=== PATIENT | female | born 1940 | race African-American/Black ===

== ENCOUNTER → 2023-06-25 15:29 | Outpatient (REF) | payer OTHER, SELFPAY ==
[2023-06-27 15:57] LABS: Varicella Zoster IgG (VZV) Positive
== END ==
LOC: REG 15:29
PROVIDERS: ATTENDING PHYSICIAN Internal Medicine
DX: Z20.820 Contact with and (suspected) exposure to varicella (principal)
CPT/HCPCS: 36415; 86787

== ENCOUNTER 2023-10-22 05:39 | Inpatient (IN) | payer OTHER, SELFPAY ==
[2023-10-22] VITALS (11 sets, daily range): BP systolic 114–187; BP diastolic 72–97; BMI 27.0
--- NOTE | 2023-10-22 03:20 | ED.MUSCINJ ---
HPI-Injury
<Daniela Win DO, Resident - Last Filed: 10/22/23 05:35>
General
Chief Complaint: Fall
Source: patient
Time Seen by Provider: 10/22/23 03:11
History of Present Illness-Injury
Is this injury a work related problem?: No
Is pt an associate of [facility]/[place]?: No
Initial Injury comments:
Patient is an 83-year-old female presenting to the ED after a fall. She was in her bathroom putting on lotion wearing her stool rolled out from underneath her. She was unable to catch her balance and fell. She was down for 2 hours as her
tried to assist her to get up. At 1 point they decided to just call EMS instead. She states her pain is a 10 out of 10 and does not like her right hip to be touched or maneuvered. She states that she cannot stop shaking and the pain is not going
down despite EMS giving fentanyl on the way here.
Past History
<Daniela Win DO, Resident - Last Filed: 10/22/23 05:35>
Past History
ED Past Medical History: HTN and Hypercholesterolemia; Negative CAD or NIDDM
ED Past Surgical History: Orthopedic (cerv fusion) and Other (Probable umbilical hernia as a child); Negative Cardiac
Social History
Tobacco: Non-smoker
Alcohol: None
Drug: None
Personal:
Living: with family
Employment: Retired
Family History
Family History: Other (Noncontributory)
Review of Systems
<Daniela Win DO, Resident - Last Filed: 10/22/23 05:35>
Review of Systems
Constitutional: Reports no symptoms
EENT: Reports no symptoms
Respiratory: Reports no symptoms
Cardiac: Reports no symptoms
ABD/GI: Reports no symptoms
: Reports no symptoms
Musculoskeletal: Reports joint pain, muscle pain and other (right hip pain secondary to fall)
Skin: Reports no symptoms
Neurological: Reports no symptoms
Musculoskeletal Injury Exam
<Daniela Win DO, Resident - Last Filed: 10/22/23 05:35>
Musculoskeletal Injury Exam
Right Hip:
Pain with Movement?: Severe
Tender to palpation?: Severe
Phy Exam
<Daniela Win DO, Resident - Last Filed: 10/22/23 05:35>
General Physical Exam
General Presentation: well appearing and no apparent distress
General age: appears stated age
General Skin: warm and dry
General Habitus: normal
General Mental: alert
Cardiovascular Exam
Cardiovascular Exam: regular rate/rhythm, no edema, no gallop, no JVD and no murmur
Pulmonary Exam
Pulmonary Exam: lungs clear, no respiratory distress, no rales, chest non tender, no crackles, no rhonchi, no stridor, no wheezing and no cough
Neurological Exam
Neurological Exam: alert and oriented x3
Musculoskeletal Exam
Musculoskeletal Exam: other (decreased ROM at right hip)
Injury Course
<Daniela Win DO, Resident - Last Filed: 10/22/23 05:35>
Orders/Labs/Results
Orders:
Orders
10/22/23 03:12
CR Hip - RT w/wo Pel 2-3 Vw* Urgent
Comment:
Reason For Exam: fall
Include a pelvis x-ray?: Yes
10/22/23 03:13
CR Femur - Right Min 2 Vw Urgent
Comment:
Reason For Exam: fall
10/22/23 03:15
HYDROmorphone [Dilaudid] 0.5 mg IV NOW STA
10/22/23 03:58
CT Head W/o Iv Contrast Urgent
Comment:
Reason For Exam: fall, blood thinners
10/22/23 04:08
Electrocardiogram (*1) Urgent
Reason for Study: PreOp
EKG- Treatment ONCE
10/22/23 04:09
Prothrombin Time Urgent
10/22/23 04:17
Complete Blood Count/With Diff Urgent
Comprehensive Metabolic Panel Urgent
10/22/23 04:20
Type+Screen Urgent
10/22/23 04:44
HYDROmorphone [Dilaudid] 0.5 mg IV NOW STA
10/22/23 Breakfast
NPO
Allow oral meds: No
Allow clear liquids: Sips of Clears
NPO with Ice Chips: Yes
Abnormal Lab Results
10/22/23
04:17
Glucose 112 H mg/dl
(70-99)
10/22/23 04:17
<Dejan Olguin, DO - Last Filed: 10/22/23 04:13>
Orders/Labs/Results
Orders:
Orders
10/22/23 03:12
CR Hip - RT w/wo Pel 2-3 Vw* Urgent
Comment:
Reason For Exam: fall
Include a pelvis x-ray?: Yes
10/22/23 03:13
CR Femur - Right Min 2 Vw Urgent
Comment:
Reason For Exam: fall
10/22/23 03:15
HYDROmorphone [Dilaudid] 0.5 mg IV NOW STA
10/22/23 03:58
CT Head W/o Iv Contrast Urgent
Comment:
Reason For Exam: fall, blood thinners
10/22/23 04:08
Electrocardiogram (*1) Urgent
Reason for Study: PreOp
EKG- Treatment ONCE
10/22/23 04:09
Prothrombin Time Urgent
10/22/23 04:17
Complete Blood Count/With Diff Urgent
Comprehensive Metabolic Panel Urgent
10/22/23 04:20
Type+Screen Urgent
10/22/23 04:44
HYDROmorphone [Dilaudid] 0.5 mg IV NOW STA
10/22/23 Breakfast
NPO
Allow oral meds: No
Allow clear liquids: Sips of Clears
NPO with Ice Chips: Yes
Abnormal Lab Results
10/22/23
04:17
Glucose 112 H mg/dl
(70-99)
10/22/23 04:17
<Daniela Win DO, Resident - Last Filed: 10/22/23 05:35>
MDM/Problems Addressed
Differential Diagnosis Includes:
Hip dislocation, femur fracture, hip contusion, pelvis fracture, hip fracture
MDM/Problems Addressed:
Patient is an 83-year-old female presenting to the ED after a fall in her bathroom. 0.5 mg Dilaudid given for pain in ED 2x. X-ray of right hip with pelvis and femur Show a clean fracture of the right leg at the level of the lesser trochanter.
Surgery consulted
Chronic conditions affecting care:
N/A
Acute Exacerbation and/or Progression of Chronic Illness:
N/A
<Daniela Win DO, Resident - Last Filed: 10/22/23 05:35>
*EKG
Interpreted by ED Provider?: Yes
EKG Intrepretation Date: 10/22/23
Interpretation: normal
Comparison EKG: no comparison EKG present
Rate: normal
Rhythm: sinus
[place]: normal axis
Interval: normal interval
QRS Pattern: normal QRS
Ischemia: no ischemia
*Spectrographic Analyst Interpretation
Rate: Spectrographic Analyst- N/A
<Dejan Olguin DO - Last Filed: 10/22/23 04:13>
*Critical Care Note
Total Time (30-74mins, 75-104mins- exclusive of procedures): Not Applicable
ED Attending Note
<Daniela Win DO, Resident - Last Filed: 10/22/23 05:35>
-
Portions of this chart may have been created with voice recognition software.� Occasional wrong word or��sound alike� substitutions may have occurred due to the inherent limitations of voice recognition software.
<Dejan Olguin DO - Last Filed: 10/22/23 04:13>
ED Attending Note
Patient seen and examined by attending physician: Yes
I performed the substantive portion of visit, reviewed & personally made and approve the management plan that is documented in note by myself or NEHA.: Yes
ED Attending Note:
83-year-old female presents with right hip pain. Patient slipped while trying to place cream on her leg. She fell off the stool falling on her right hip. Denies head injury or loss of consciousness. Patient is on Eliquis after a fall. Patient
has no other injury. Denies head strike or loss of consciousness. Patient was seen in conjunction with the medical accounting clerk. I have reviewed and agree with her history and treatment plan. On my physical exam patient is awake alert and oriented x
3. at the bedside. Heart is regular rate and rhythm. Lungs are clear to auscultation bilaterally without wheezes rales or rhonchi. Tenderness to palpation in the right hip. The right hip is shortened and externally rotated consistent
with fracture. X-ray of the hip and pelvis shows a femoral neck fracture that is comminuted and displaced.
Spoke with Dr. Jarquin, orthopedic surgery who agreed to see patient on rounds. Medicine to see in medically cleared patient. Patient to be admitted to medicine service.
Discharge Plan
Departure
Patient Disposition: Admit
Date of Disposition: 10/22/23
Time of Disposition: 04:10
Admit to: Telemetry
Presentation/result/management discussed w/ accepting MD/DO: Hospitalist
Condition: Good
Discharge Problem:
Closed hip fracture
Prescriptions:
No Action
simvastatin 20 MG tablet
20 mg PO HS
gabapentin 300 MG capsule
600 mg PO TID
tramadol 50 MG tablet
50 mg PO Q6H PRN (Reason: moderate pain)
Patient Comments:
01/04/2023: last filled 12/31/22, 120 tabs for 30 days from [facility][id number]
Caltrate 600 plus D 1 EACH tablet,chewable
1 ea PO DAILY
multivitamin Tablet
1 tab PO DAILY
cyanocobalamin (vitamin B-12) [Vitamin B-12] 1,000 mcg Tablet
1,000 mcg PO DAILY
cholecalciferol (vitamin D3) [Vitamin D3] 50 mcg (2,000 unit) Tablet
50 mcg PO DAILY
Eliquis 5 mg Tablet
5 mg PO BID 30 Days Qty: 60 0RF
lidocaine 4 % Adhesive Patch,Medicated
1 patch topical DAILY Qty: 30 0RF
metoprolol succinate 100 mg Tablet Extended Release 24 Hr
100 mg PO DAILY Qty: 30 0RF
pantoprazole 40 mg Tablet,Delayed Release (Dr/Ec)
40 mg PO BID Qty: 60 1RF
lisinopril 5 mg Tablet
5 mg PO DAILY Qty: 30 0RF
Referrals:
Lucia Handley MD [Family Provider] -
Interventions
Interventions:
*Risk Screen - Suicide Last Done: 10/22/23 03:14
*General Assessment Last Done: 10/22/23 03:14
*Neglect/Abuse Screening Last Done: 10/22/23 03:14
*ED COVID-19 Vaccine History Last Done: 10/22/23 03:14
ED-Musculoskeletal Assessment Last Done: 10/22/23 03:25
ED- Neurological Assessment Last Done: 10/22/23 03:14
ED-Skin Assessment Last Done: 10/22/23 03:25
Discharge Date and Time
Print Language: ESTONIAN
[2023-10-22] MEDS: DILAUDID 0.5 MG IV ×10 (03:22→23:57)
--- NOTE | 2023-10-22 05:04 | HPS.HSE ---
Family Physician
-
Family Physician: Lucia Handley
Chief Complaint
-
Fall
History of Present Illness
The patient is an 83-year-old woman with PMH significant for PAF on Eliquis (last dose noon 10/20), HTN, CAD, GI bleed, duodenal ulcer, Schatzki ring, Small Hiatal Hernia, spinal stenosis who presented to the emergency department due to a mechanical
fall in her bathroom earlier today. She was down for 2 hours and her was trying to assist her up. They called EMS and she was brought to the emergency department and found to have a right hip fracture. She does take oral anticoagulation.
She is having significant pain in the right hip.
Medical History
Past Medical History
Past Medical History: Reports Arrhythmia (PAF on Eliquis), CAD, HTN, Hypercholesterolemia, Valvular Disease (moderate TR), Psychiatric (Depression) and Other (GI bleed, duodenal ulcer, Schatzki ring, Small Hiatal Hernia, spinal stenosis)
Past Surgical History: Reports Orthopedic (cervical fusion) and Other (Hemorrhoid surgery)
Social History
Tobacco: Non-smoker
Alcohol: None
Drug: None
Family History
Family History: Not pertinent
Allergies / Home Medications
Allergies reflects when Allergies were last updated in [facility]..
Home Medications with original date entered in [facility].
Allergy/Medication List:
Allergies
Allergy/AdvReac Type Severity Reaction Status Date / Time
duloxetine HCl Allergy Pharmacy Verified 04/17/23 15:11
[From [facility]] to Review
oxycodone Allergy dizzy Verified 04/17/23 15:11
Home Medications
gabapentin 300 mg capsule 600 mg PO TID Neurological Condition 01/01/14
simvastatin 20 mg tablet 20 mg PO HS High Cholesterol 01/01/14
tramadol 50 mg tablet 50 mg PO Q6H PRN moderate pain 05/25/14
calcium carbonate 600 mg-vitamin D3 20 mcg (800 unit) chewable tablet (Caltrate 600 plus D) 1 ea PO DAILY Supplement 01/11/15
cholecalciferol (vitamin D3) 50 mcg (2,000 unit) tablet (Vitamin D3) 50 mcg PO DAILY Supplement 01/04/23
cyanocobalamin (vitamin B-12) 1,000 mcg tablet (Vitamin B-12) 1,000 mcg PO DAILY Supplement 01/04/23
multivitamin 1 tab PO DAILY Supplement 01/04/23
apixaban 5 mg tablet (Eliquis) 5 mg PO BID 30 days #60 tabs 01/07/23
lidocaine 4 % topical patch 1 patch topical DAILY #30 ea 01/07/23
lisinopril 5 mg tablet 5 mg PO DAILY #30 tabs 01/07/23
metoprolol succinate 100 mg tablet,extended release 24 hr 100 mg PO DAILY #30 tabs 01/07/23
pantoprazole 40 mg tablet,delayed release 40 mg PO BID #60 tabs 01/07/23
Review of Systems
-
A 12 point ROS was completed and negative except as noted: Yes
Physical Exam
Vital Signs
Vital Signs
Temp Pulse Resp BP Pulse Ox
98.7 F 82 20 187/84 98
10/22/23 03:14 10/22/23 03:14 10/22/23 03:14 10/22/23 03:14 10/22/23 03:14
Physical Exam
General: Comfortable, Conversant and Other (distress from pain)
HEENT: NormoCephalic, Anicteric and Moist mucous membranes
Respiratory: Clear
Cardiac: S1/S2 and Regular Rhythm
GI: Soft, Non Tender and Non Distended
Musculoskeletal: No Clubbing, No Cyanosis, No Edema and Other (RLE shortened and internally rotated)
Skin: Warm and Dry
Neuro: AO x 3 and No Motor Deficits
Data Reviewed
-
Medical Tests (Nuc Med, Echo, EKG etc): Image Personally Visualized and interpreted and Report Reviewed by me (EKG Sinus rhythm)
Impression/Plan
-
IMPRESSION:
#Right comminuted femoral neck fracture, on Eliquis, last dose noon on 10/20 2/2 mechanical fall
-hold Eliquis
-Ortho consulted, plan will likely be surgery Saturday after Eliquis wash-out
-Pain management IV prn
-labs pending
-supportive care
-bowel regimen
#PAF on Eliquis
-hold Eliquis
-Tele monitoring, waiting on med rec to add beta liliana
#Essential HTN
-awaiting med rec, will have to add meds once med rec performed
# CAD
#GI bleed, duodenal ulcer, Schatzki ring, history of
#Small Hiatal Hernia, history of
#spinal stenosis
-on tramadol at home
DVT proph-PCSs
Full Code
[2023-10-22 05:31] LABS: ALT (SGPT) 13 U/L (0-35); AST (SGOT) 28 U/L (14-36); Albumin 4.3 g/dl (3.5-5.0); Alkaline Phosphatase 88 U/L (38-126); Blood Urea Nitrogen 14 mg/dl (7-17); Calcium 9.7 mg/dl (8.4-10.2); Carbon Dioxide 27 mmol/L (22-30); Chloride 102 mmol/L (98-107); Glucose 112 mg/dl (70-99); Potassium 4.2 mmol/L (3.5-5.1); Sodium 138 mmol/L (135-145); Total Bilirubin 0.8 mg/dl (0.2-1.3); eGFR > 60.00
[2023-10-22 05:36] LABS: % Basophils 0.2 % (0-2); % Eosinophils 0.1 % (0-6); % Immature Granulocytes 0.5 % (0-0.5); % Lymphocytes 6.4 % (20.5-51.1); % Monocytes 4.1 % (1.7-9.3); % Neutrophils 89.5 % (42.2-75.2); Absolute Immature Granulocytes 0.1 10^3/uL (0-0.05); Absolute Lymphocytes 0.8 10^3/uL (1.2-3.4); Absolute Monocytes 0.5 10^3/uL (0.1-0.6); Absolute Neutrophils 11.6 10^3/uL (1.4-6.5); Hematocrit 36.4 % (37.0-47.0); Hemoglobin 12.3 g/dL (12.0-16.0); Mean Corp Hgb Conc. 33.5 g/dL (33.0-37.0); Mean Corpuscular Hgb 30.8 pg (27.0-31.0); Mean Corpuscular Volume 91.9 fL (81.0-99.0); Mean Platelet Volume 10.3 fL (7.4-10.4); Nucleated Red Blood Cells % 0 %; Platelet Count 254 10^3/uL (130-400); Red Blood Cell Count 3.99 10^6/uL (4.20-5.40); Red Cell Dist. Width 11.8 % (11.5-14.5)
[2023-10-22 05:56] LABS: INR 1.24; PT 15.4 Sec (11.4-14.6)
[2023-10-22] MEDS: NSS 1000 IV ×2 (07:21→17:00)
--- NOTE | 2023-10-22 07:22 | PTCARENOTE ---
Patient arrived from ED, able to participate in admission, good historian just unaware of home medications. Pulls over with assist, with R hip pain especially with movement.
[2023-10-22] MEDS: TYLENOL 650 MG PO ×5 (07:23→23:58)
--- NOTE | 2023-10-22 07:36 | W.PN.UPDATE ---
Update Note
Progress Note Update
Patient seen and evaluated by orthopedic surgery this morning. Patient has a comminuted intertrochanteric and subtrochanteric fracture of the right proximal femur. Recommending gamma nail fixation tomorrow, 10/23/2023 under the direction of
Britton (to allow for Eliquis washout). Consent obtained and placed in patient's chart. Right hip marked as the correct surgical extremity. Preoperative Ancef, irrigation, and TXA on-call to the OR. Type and screen ordered. Patient to remain NPO
pMN 10/22/2023 for surgery 10/23/2023. Case posted with OR front end drupal developer. Orthopedic surgery will continue to follow along. Full consult H&P pending.
--- NOTE | 2023-10-22 08:04 | CON.ORTHO ---
Consultation
-
Date/Time Consultation Requested: 10/22/23 @ 6:51 AM
Date/Time Consultation Performed: 10/22/23 @ 7:30 AM
Requesting Provider: Yisel Love
Performing Provider: Washington Villatoro PA-C for Dr. Jeff Jarquin
Reason for Consultation: Right Hip Fracture
Consultation - Orthopedics
History
HPI: The patient is an 83-year-old female with a past medical history significant for PAF on Eliquis (last dose noon 10/20), HTN, CAD, GI bleed, duodenal ulcer, schatzki ring, small hiatal hernia, and spinal stenosis who presented to the Emergency
Department via EMS with right hip pain after sustaining a mechanical fall in her bathroom earlier today. X-rays were obtained in the ED and revealed a comminuted intertrochanteric and subtrochanteric fracture of the proximal femur. Currently, she
is resting in bed and does report moderate pain to the right hip/thigh. She has pain with any movement. Patient is on Eliquis 5 mg twice daily, last dose reported noon 10/20. She denies any other injuries. At baseline, patient ambulates with
assistance of a walker/cane. She lives at home with her . She receives home nursing care 3 times per week. Orthopedic surgery was consulted regarding management of her right hip fracture.
Past Medical History
Past Medical History: Reports Arrhythmia (PAF on Eliquis), CAD, HTN, Hypercholesterolemia, Valvular Disease (moderate TR), Psychiatric (Depression) and Other (GI bleed, duodenal ulcer, Schatzki ring, Small Hiatal Hernia, spinal stenosis)
Past Surgical History: Reports Orthopedic (cervical fusion) and Other (Hemorrhoid surgery)
Social History
Tobacco: Non-smoker
Alcohol: None
Drug: None
Family History
Family History: Not pertinent
Review of Systems: 12-point review of systems obtained and negative except those mentioned in the HPI.
Allergies / Home Medications
Allergy/AdvReac Type Severity Reaction Status Date / Time
duloxetine HCl Allergy Pharmacy Verified 04/17/23 15:11
[From [facility]] to Review
oxycodone Allergy dizzy Verified 04/17/23 15:11
�Medication �Instructions �Recorded
gabapentin 300 mg capsule 600 mg PO TID Neurological 01/01/14
Condition
simvastatin 20 mg tablet 20 mg PO HS High Cholesterol 01/01/14
tramadol 50 mg tablet 50 mg PO Q6H PRN moderate pain 05/25/14
calcium carbonate 600 mg-vitamin 1 ea PO DAILY Supplement 01/11/15
D3 20 mcg (800 unit) chewable
tablet (Caltrate 600 plus D)
cholecalciferol (vitamin D3) 50 50 mcg PO DAILY Supplement 01/04/23
mcg (2,000 unit) tablet (Vitamin
D3)
cyanocobalamin (vitamin B-12) 1,000 mcg PO DAILY Supplement 01/04/23
1,000 mcg tablet (Vitamin B-12)
multivitamin 1 tab PO DAILY Supplement 01/04/23
apixaban 5 mg tablet (Eliquis) 5 mg PO BID 30 days #60 tabs 01/07/23
lidocaine 4 % topical patch 1 patch topical DAILY pain 10/22/23
lisinopril 5 mg tablet 5 mg PO DAILY Blood Pressure 10/22/23
metoprolol succinate 100 mg 100 mg PO DAILY Blood Pressure 10/22/23
tablet,extended release 24 hr
pantoprazole 40 mg tablet,delayed 40 mg PO BID Gastrointestinal Issue 10/22/23
release
Vital Signs / Lab Results
Temp Pulse Resp BP Pulse Ox
99.2 F 91 21 173/97 95
10/22/23 07:11 10/22/23 07:11 10/22/23 07:11 10/22/23 07:11 10/22/23 07:11
10/22/23 04:17
10/22/23 04:17
Radiographic Findings:
CR Femur - RIGHT Min 2 Vw; CR Hip - RT w/wo Pel 2-3 Vw* was obtained at [facility] on 10/22/2023 and was made available for my review today. Findings: There is a comminuted intertrochanteric and subtrochanteric fracture of the proximal
right femur. Remaining osseous structures appear intact. Some degenerative changes about the both hips and within the included portion of the lower lumbar spine are noted. Impression: Comminuted intra inheritance subtrochanteric fracture of the
proximal femur.
Physical Exam:
General: well developed, well nourished female in no acute distress.
HEENT: NCAT, sclera anicteric, normal conversational hearing.
Heart: No JVD.
Lungs: Normal work of breathing on room air.
MSK: Focused examination of the right lower extremity reveals leg shortened and externally rotated. (+) [place]. (+) Tenderness to palpation of hip. ROM deferred due to known fracture. Able to plantarflex and dorsiflex the ankle. Wiggle all toes.
NVI distally.
Assessment / Plan
Assessment: 83-year-old female with a right comminuted intertrochanteric and subtrochanteric fracture of the proximal right femur.
Plan: Unfortunately, the patient has sustained a right proximal femur fracture following a mechanical fall earlier today. We discussed the treatment options. Recommended operative fixation. The risks, benefits, potential complications, and the
expected postoperative course were reviewed. She agrees to proceed with surgical intervention. Surgical and blood consents were obtained and placed into the patient's chart. We will plan for OR tomorrow, 10/23/2023 for right hip gamma nail under
the direction of Dr. Jarquin to allow for Eliquis washout. Patient to remain NPO pMN for surgery tomorrow. Patient to remain nonweightbearing to the right lower extremity until postop. Continue with pain management per primary team as needed.
Preoperative Ancef, irrigation, and TXA irrigation podiatric surgeon to OR. Type and screen completed. Case posted with the OR front desk officer. Right hip marked as the correct surgical extremity. Hemoglobin today 12.3. Orthopedic surgery will continue to
follow along.
--- NOTE | 2023-10-22 11:42 | CM ---
Reviewed the chart notes and spoke with the patient and her spouse at the bedside. The patient is scheduled for the OR tomorrow for hip fx repair. The patient resides with her spouse in a one story home with no steps to enter through garage
entrance. The patient uses a rolling walker with ambulation and has a shower chair. The patient has skilled nursing insurance and has an aide M-W-F for four hours to assist with ADLs. The patient's pharmacy of choice is the [facility].
CM continues to be available to patient/family and is monitoring medical plan for needs at discharge.
Plan: Discharge most probably to SNF/rehab. Precert will be required.
--- NOTE | 2023-10-22 12:48 | W.PN.UPDATE ---
Update Note
Progress Note Update
Pain control, plan to go to the OR tomorrow
N.p.o. at midnight
Leukocytosis most likely reactive secondary to fall/fracture. Monitor fever curve, white count.
[2023-10-22] MEDS: COLACE 100 MG PO (19:59)
[2023-10-22] MEDS: SENOKOT 17.2 MG PO (19:59)
[2023-10-23] VITALS (15 sets, daily range): BP systolic 93–175; BP diastolic 63–108
--- NOTE | 2023-10-23 03:35 | DOWNTIME ---
There was a [employer] Client Ultrasound Sonographer Downtime on 10/23/2023 from 0100 to 10/23/2023 at 0255. Downtime documentation of patient's care, including medication administrations, has been reconciled in the electronic record per guidelines. Refer to the
patient's paper chart under the miscellaneous tab to see printed paper medication records and downtime forms.
[2023-10-23] MEDS: TYLENOL 650 MG PO ×4 (03:47→19:48)
[2023-10-23] MEDS: DILAUDID 0.5 MG IV ×5 (03:48→15:52)
--- NOTE | 2023-10-23 07:08 | W.PN.UPDATE ---
Update Note
Progress Note Update
Patient resting comfortably in bed. She does endorse some discomfort to the right hip. Plan is for right hip gamma nail later today under the direction of Dr. Jarquin. Surgical and blood consents have been obtained and placed on patient's chart. All
of her questions were answered. Remain NPO. Will continue to follow along.
[2023-10-23 07:10] LABS: Hematocrit 31.8 % (37.0-47.0); Hemoglobin 10.7 g/dL (12.0-16.0); Mean Corp Hgb Conc. 33.6 g/dL (33.0-37.0); Mean Corpuscular Hgb 30.5 pg (27.0-31.0); Mean Corpuscular Volume 90.6 fL (81.0-99.0); Mean Platelet Volume 10.7 fL (7.4-10.4); Platelet Count 192 10^3/uL (130-400); Red Blood Cell Count 3.51 10^6/uL (4.20-5.40); Red Cell Dist. Width 11.9 % (11.5-14.5); White Blood Cell Count 7.9 10^3/uL (4.8-10.8)
[2023-10-23 07:14] LABS: Blood Urea Nitrogen 7 mg/dl (7-17); Calcium 8.8 mg/dl (8.4-10.2); Carbon Dioxide 25 mmol/L (22-30); Chloride 106 mmol/L (98-107); Estimated Creatinine Clearance 69 ml/min; Glucose 112 mg/dl (70-99); Sodium 137 mmol/L (135-145); eGFR > 60.00
[2023-10-23] MEDS: SENOKOT 17.2 MG PO ×2 (09:04→19:48)
[2023-10-23] MEDS: COLACE 100 MG PO ×2 (09:04→19:48)
--- NOTE | 2023-10-23 11:40 | W.PN.HOSP.TC ---
Today's Communication/Plan
-
Gamma Nail today
holding eliquis
Assessment / Plan
Assessment / Plan
Physical Exam
General: Comfortable, Conversant
HEENT: NormoCephalic, Anicteric and Moist mucous membranes
Respiratory: Clear
Cardiac: S1/S2 and Regular Rhythm
GI: Soft, Non Tender and Non Distended
Musculoskeletal: No Clubbing, No Cyanosis, No Edema and Other (RLE shortened and internally rotated)
Skin: Warm and Dry
Neuro: AO x 3 and No Motor Deficits
#Right comminuted femoral neck fracture, on Eliquis, last dose noon on 10/20 2/ mechanical fall
-hold Eliquis, await restarting once cleared by Ortho
-Ortho consulted, plan will likely be surgery Saturday after Eliquis wash-out; Right Hip gamma nail
-Pain management IV prn
-labs pending
-supportive care
-bowel regimen
#PAF on Eliquis
-hold Eliquis
-Tele monitoring, waiting on med rec to add beta liliana
#Essential HTN - BB, ACEI
# CAD - BB, ACEI
#GI bleed, duodenal ulcer, Schatzki ring, history of
#Small Hiatal Hernia, history of
#spinal stenosis
-on tramadol at home; dilaudid inpatient
DVT proph-SCDs
Full Code
Anticipated Discharge: 24 - 48 hours
Subjective/Interval History
-
Date of Service: October 23, 2023
no acute events
Objective Data
-
Labs:
Laboratory Results
10/23/23
06:05
WBC 7.9
Hgb 10.7 L
Hct 31.8 L
Plt Count 192 D
Sodium 137
Potassium 4.0
Chloride 106
Carbon Dioxide 25
BUN 7
Creatinine 0.6
Glucose 112 H
Calcium 8.8
Vital Signs:
Vital Signs
Temp Pulse Resp BP Pulse Ox
98.7 F 101 18 175/97 94
10/23/23 11:00 10/23/23 11:00 10/23/23 11:00 10/23/23 11:00 10/23/23 11:00
I&O
10/22/23 10/23/23 10/24/23
06:59 06:59 06:59
Intake Total 2840 / 2840
Output Total 1999
Balance 840 / 840
Review of Systems
-
History Source: Patient
All other systems: Reviewed and negative
Physical Exam
-
General: No Apparent Distress
HEENT: PERRLA
Respiratory: Clear to Auscultation; Negative Wheezes
Cardiac: S1/S2
GI: Soft and Nontender
Musculoskeletal: No Edema
Skin: Warm and Dry; Negative Rash
Neuro: AO x 3
Psych: Calm
Data Reviewed
-
Diagnostic Radiology: Report Reviewed by me
Labs: Labs Reviewed by me
[2023-10-23] MEDS: TOPROL XL 100 MG PO (12:05)
--- NOTE | 2023-10-23 12:30 | PTCARENOTE ---
Report given to LINUX SECURITY ADMINISTRATOR. Pts bp is 175/97. MD ordered PO metoprolol. OR okay'd this RN to give before OR. PO metorpolol and PRN Dilaudid given per order. CHG wipes completed. Patients son and at bedside.
--- NOTE | 2023-10-23 14:48 | CM ---
Reviewed the chart notes. Patient for OR today. Will need PT/OT evaluations for SNF/rehab placement. Precert will be required. CM continues to be available to patient/family and is monitoring medical plan for needs at discharge.
Plan: Discharge to SNF/rehab once medically stable and bed found. Precert will be required.
[2023-10-23] MEDS: NSS 1000 IV (16:27)
--- NOTE | 2023-10-23 16:52 | PTCARENOTE ---
Patient received from PACU in bed; Patient drowsy, awakes to voice and tactile stimulation; Patient disoriented to self, place, and time; Patient intermittently following commands; Right hip aquacell x3 with scant amount of drainage; Bilateral pedal
pulses +2; Patient able to wiggle toes; Patient with positive sensation to RLE; Bed in lowest position, wheels locked; Call espinoza within reach; Spouse and son at bedside; Assessment ongoing
[2023-10-23] MEDS: NEURONTIN 600 MG PO ×2 (17:29→21:08)
[2023-10-23] MEDS: TYLENOL PO (17:32)
[2023-10-23] MEDS: PROTONIX 40 MG PO (19:48)
[2023-10-23] MEDS: ANCEF 5 IV (20:35)
[2023-10-24] VITALS (7 sets, daily range): BP systolic 99–109; BP diastolic 52–68
[2023-10-24] MEDS: TYLENOL 650 MG PO ×5 (00:01→23:57)
[2023-10-24] MEDS: NSS 1000 IV ×2 (04:05→15:16)
[2023-10-24] MEDS: ANCEF 5 IV (04:11)
[2023-10-24 05:57] LABS: Hematocrit 26.8 % (37.0-47.0); Hemoglobin 8.9 g/dL (12.0-16.0); Mean Corp Hgb Conc. 33.2 g/dL (33.0-37.0); Mean Corpuscular Hgb 31.4 pg (27.0-31.0); Mean Corpuscular Volume 94.7 fL (81.0-99.0); Mean Platelet Volume 10.5 fL (7.4-10.4); Platelet Count 223 10^3/uL (130-400); Red Blood Cell Count 2.83 10^6/uL (4.20-5.40); Red Cell Dist. Width 11.9 % (11.5-14.5); White Blood Cell Count 12.6 10^3/uL (4.8-10.8)
[2023-10-24 06:21] LABS: Blood Urea Nitrogen 19 mg/dl (7-17); Calcium 8.6 mg/dl (8.4-10.2); Carbon Dioxide 22 mmol/L (22-30); Chloride 106 mmol/L (98-107); Estimated Creatinine Clearance 38 ml/min; Glucose 130 mg/dl (70-99); Potassium 4.5 mmol/L (3.5-5.1); Sodium 138 mmol/L (135-145); eGFR 49.86
--- NOTE | 2023-10-24 07:39 | W.PN.ORTHO ---
Today's Communication / Plan
-
Patient not arousable this morning but seems to be doing okay per nursing so suggest they contact hospitalist for evaluation
PT/OT
Weightbearing as tolerated with walker
Eliquis for DVT prophylactics
Moderate bloody drainage on dressing so nursing may change dressings this am
care home facility once medically stable
Skin clip removal 2 weeks postop
Return to office 4 weeks for x-ray
Assessment
.
Distal Motor Intact: Yes
Dressing:
Clean, dry and intact.
Plan
.
Surgery / Date: R hip Gamma Nail 10/22 Ritting
DVT Prophylaxis: Other (Eliquis)
Activity:
Out of bed.
PT/OT
Discharge Plan: SNF
Subjective
.
.:
Patient resting comfortably. Patient not arousable this morning. Spoke with her overnight nurse who said that she has been like that since she came back from PACU. Her vital signs seem to be improving and is not in significant pain. She has been
taking Tylenol only for pain. They are able to arouse her enough to take pills with applesauce. neurovascular appears intact.
Vital Signs and Labs
.
Vital Signs and Labs:
Lab Results
10/24/23 05:46
10/24/23 05:46
Temp Pulse Resp BP Pulse Ox
97.1 F 93 16 104/68 93
10/24/23 03:50 10/24/23 03:50 10/24/23 03:50 10/24/23 03:50 10/24/23 03:50
PT 15.4 Sec (11.4-14.6) H 10/22/23 04:09
INR 1.24 10/22/23 04:09
[2023-10-24] MEDS: LR 1000 IV (08:33)
[2023-10-24] MEDS: NEURONTIN 600 MG PO (08:36)
[2023-10-24] MEDS: SENOKOT 17.2 MG PO ×2 (08:38→19:51)
[2023-10-24] MEDS: COLACE 100 MG PO ×2 (08:38→19:51)
[2023-10-24] MEDS: PROTONIX 40 MG PO ×2 (08:38→19:51)
[2023-10-24] MEDS: ZESTRIL PO (08:46)
[2023-10-24] MEDS: TOPROL XL PO (08:46)
[2023-10-24] MEDS: ELIQUIS 5 MG PO ×2 (09:29→20:12)
[2023-10-24] MEDS: TYLENOL PO ×2 (11:18→15:31)
--- NOTE | 2023-10-24 11:28 | W.PN.HOSP.TC ---
Today's Communication/Plan
-
resumed Eliquis -monitor HgB
LR/IVF - monitor renal function
CT Head, UA, VBG
Avoid nephrotoxic agents, stop gabapentin, avoid narcotics if possible
Assessment / Plan
Assessment / Plan
Physical Exam
General: Comfortable, Conversant
HEENT: NormoCephalic, Anicteric and Moist mucous membranes
Respiratory: Clear
Cardiac: S1/S2 and Regular Rhythm
GI: Soft, Non Tender and Non Distended
Musculoskeletal: No Clubbing, No Cyanosis, No Edema and Other (RLE shortened and internally rotated)
Skin: Warm and Dry
Neuro: AO x 3 and No Motor Deficits
#Right comminuted femoral neck fracture, on Eliquis, last dose noon on 10/20 2/2 mechanical fall
-R hip Gamma Nail 10/22 Ritting
-Ortho started Eliquis - monitor with hgb drop
-Pain management IV prn
-supportive care
-bowel regimen
-Skin clip removal 2 weeks postop
-Return to office 4 weeks for x-ray
# Acute metabolic encephalopathy
� Postprocedure
� Avoid narcotics if possible
� CT head
� Venous blood gas
� UA/cultures
-stop gabapentin
#Acute Blood loss Anemia
-s/p gamma nail
-monitor while ortho placed back on eliquis
#HELENA
-most likley post op blood loss v hypotension v dehydration
-LR bolus now
-hold ACEI
#PAF on Eliquis
-back on Eliquis
-Tele monitoring, waiting on med rec to add beta liliana
-BB
#Essential HTN - BB, hold ACEI
# CAD - BB, hold ACEI
#GI bleed, duodenal ulcer, Schatzki ring, history of
#Small Hiatal Hernia, history of
#spinal stenosis
-on tramadol at home; dilaudid inpatient
DVT proph-Eliquis
Full Code
Total time spent on today's encounter was 50 minutes which included time spent in counseling the patient/family regarding diagnosis and treatment plan as listed above, goals of care, and symptom management. Case was discussed with nursing staff,
specialists, and care coordinators/case management. All labs and imaging personally reviewed by me. Remainder the time spent in detailed review of previous records, lab data, imaging, and other medical provider documentation.
Anticipated Discharge: 24 - 48 hours
Subjective/Interval History
-
Date of Service: October 24, 2023
patient lethargic this am, and apparently after procedure yesterday
Objective Data
-
Labs:
Laboratory Results
10/24/23
05:46
WBC 12.6 H
Hgb 8.9 L
Hct 26.8 L
Plt Count 223
Sodium 138
Potassium 4.5
Chloride 106
Carbon Dioxide 22
BUN 19 H
Creatinine 1.1 H
Glucose 130 H
Calcium 8.6
Vital Signs:
Vital Signs
Temp Pulse Resp BP Pulse Ox
97.9 F 101 16 108/52 97
10/24/23 11:13 10/24/23 11:13 10/24/23 11:13 10/24/23 11:13 10/24/23 11:13
I&O
10/23/23 10/24/23 10/25/23
06:59 06:59 06:59
Intake Total 2840 / 2840 1650 / 1650
Output Total 1999 / 1999 850 / 850
Balance 840 / 840 800 / 800
Review of Systems
-
History Source: Patient
All other systems: Not reviewed unless documented
Physical Exam
-
General: No Apparent Distress
HEENT: PERRLA
Respiratory: Clear to Auscultation; Negative Wheezes
Cardiac: S1/S2
GI: Soft and Nontender
Musculoskeletal: No Edema
Skin: Warm and Dry; Negative Rash
Neuro: AO x 3
Psych: Calm
Data Reviewed
-
Diagnostic Radiology: Report Reviewed by me
Labs: Labs Reviewed by me
--- NOTE | 2023-10-24 11:40 | CM ---
Addendum entered by Yecenia Nogueira 10/24/23 13:56:
Patient left his cell phone at home. Met with in room. Patient more alert at this time. Patient confirmed that he wanted patient to go to SNF prior to coming home. CM sent referral to [facility], via all scripts, following
discussion with and review of PAC data about options. Patient stated they lived [place] the [address] from [facility]. Await response from SNF.
Addendum entered by Yecenia Nogueira 10/24/23 12:00:
CM called and left voice mail requesting call back to discuss options for next steps.
Original Note:
Patient seen at bedside. Patient sleeping, CM will call to patient family to review options for next steps. Pending PT/OT assessment for recommendations. CM will continue to follow for discharge planning needs.
Plan; SNF pending functional assessments
[2023-10-24 12:15] LABS: Venous Blood Gas B.E. -2.2 mmol/L (-4 to +4); Venous Blood Gas HCO3 23.7 mmol/L (22-27); Venous Blood Gas pCO2 45 mmHg (35-48); Venous Blood Gas pH 7.33 (7.32-7.43); Venous Blood Gas pO2 182 mmHg (30-50)
[2023-10-24 13:39] LABS: Urine Albumin Negative (Neg - Trace); Urine Bilirubin Negative (Negative); Urine Character Slightly Cloudy (Clear); Urine Color Yellow; Urine Glucose Negative (Negative); Urine Ketone 1+ (Negative); Urine Leukocyte 1+ (Negative); Urine Nitrite Negative (Negative); Urine Occult Blood Trace (Negative); Urine Urobilinogen Negative (Neg - 1+)
[2023-10-24 15:14] LABS: Urine Squamous Cell >30 /LPF (Few)
[2023-10-24 15:17] LABS: Urine Bacteria Moderate (Negative); Urine Red Blood Cell 16-20 /HPF (0-2)
[2023-10-24] MEDS: TOPROL XL 100 MG PO (20:11)
[2023-10-24 21:09] LABS: Urine Albumin Negative (Neg - Trace); Urine Bilirubin Negative (Negative); Urine Character Clear (Clear); Urine Color Yellow; Urine Glucose Negative (Negative); Urine Ketone 1+ (Negative); Urine Leukocyte Trace (Negative); Urine Nitrite Negative (Negative); Urine Occult Blood Negative (Negative); Urine Specific Gravity 1.015 (<1.030); Urine Urobilinogen Negative (Neg - 1+)
[2023-10-24 21:27] LABS: Urine Red Blood Cell 0-2 /HPF (0-2); Urine White Cell 0-2 /HPF (0-5)
[2023-10-24] MEDS: DILAUDID 0.5 MG IV (21:55)
[2023-10-25] VITALS (11 sets, daily range): BP systolic 107–146; BP diastolic 59–72; PULSE 79–90; O2SAT 99
[2023-10-25] MEDS: TYLENOL 650 MG PO ×5 (03:30→21:47)
[2023-10-25] MEDS: FLOMAX 0.4 MG PO (03:30)
[2023-10-25] MEDS: NSS 1000 IV ×2 (04:41→18:14)
[2023-10-25 07:06] LABS: Blood Urea Nitrogen 24 mg/dl (7-17); Calcium 8.2 mg/dl (8.4-10.2); Carbon Dioxide 24 mmol/L (22-30); Chloride 109 mmol/L (98-107); Estimated Creatinine Clearance 41 ml/min; Glucose 94 mg/dl (70-99); Magnesium 1.9 mg/dl (1.6-2.3); Potassium 4.3 mmol/L (3.5-5.1); Sodium 139 mmol/L (135-145)
[2023-10-25 07:22] LABS: Hematocrit 18.7 % (37.0-47.0); Hemoglobin 6.5 g/dL (12.0-16.0); Mean Corp Hgb Conc. 34.8 g/dL (33.0-37.0); Mean Corpuscular Hgb 31.9 pg (27.0-31.0); Mean Corpuscular Volume 91.7 fL (81.0-99.0); Mean Platelet Volume 10.8 fL (7.4-10.4); Platelet Count 165 10^3/uL (130-400); Red Blood Cell Count 2.04 10^6/uL (4.20-5.40); White Blood Cell Count 10.5 10^3/uL (4.8-10.8)
[2023-10-25] MEDS: ELIQUIS PO (07:36)
--- NOTE | 2023-10-25 07:50 | W.PN.ORTHO ---
Today's Communication / Plan
-
83F POD 2 R hip CMN
Hgb decreased to 6.5; transfusion per primary; dressings with saturation central but not permeating borders.
PT/OT
Weightbearing as tolerated with walker
Eliquis for DVT prophylactics
senior living facility once medically stable
Skin clip removal 2 weeks postop
Return to office 4 weeks for x-ray
Ortho surg will continue to follow
Assessment
.
Distal Motor Intact: Yes
Dressing:
Central strikethrough not permeating borders, dry edges, intact.
Plan
.
Surgery / Date: R hip Gamma Nail 10/22 Ritting
Activity:
Out of bed.
PT/OT
Subjective
.
.:
Patient in obvious discomfort. Pain about right hip.
Vital Signs and Labs
.
Vital Signs and Labs:
Lab Results
10/25/23 05:27
10/25/23 05:27
Temp Pulse Resp BP Pulse Ox
98.3 F 87 16 110/65 94
10/25/23 02:54 10/25/23 02:54 10/25/23 02:54 10/25/23 02:54 10/25/23 02:54
PT 15.4 Sec (11.4-14.6) H 10/22/23 04:09
INR 1.24 10/22/23 04:09
[2023-10-25] MEDS: COLACE PO ×2 (08:57→09:04)
[2023-10-25] MEDS: PROTONIX 40 MG PO ×2 (08:58→21:48)
[2023-10-25] MEDS: TOPROL XL 100 MG PO (08:58)
[2023-10-25] MEDS: SENOKOT PO ×2 (08:58→09:04)
[2023-10-25] MEDS: DILAUDID 0.5 MG IV ×5 (09:02→17:03)
--- NOTE | 2023-10-25 09:24 | CM ---
Patient seen at bedside with nursing. Patient lives with , and children. Patient PCP is Dr. Sonja Gonsales and she uses the [facility]. Patient lives in [address] [place] [address]. No DME or VN needs anticipated at discharge. Patient does indicate
that she is having problems with bills specifically rent. CM will provide resources. Patient stated that her family will provide transportation home. CM will continue to follow for discharge planning needs.
Plan; home with no needs.
--- NOTE | 2023-10-25 09:50 | CM ---
Patient seen at bedside. Family not present. Per nursing patient not medically appropriate to discuss next steps. patient referral sent to [facility], pending response. CM will continue to follow for discharge planning needs.
Plan; SNF
--- NOTE | 2023-10-25 13:37 | W.PN.HOSP.TC ---
Today's Communication/Plan
-
transfuse 1u
monitor cbc
hold eliquis
f/u bmp
IVF
Assessment / Plan
Assessment / Plan
Physical Exam
General: Comfortable, Conversant
HEENT: NormoCephalic, Anicteric and Moist mucous membranes
Respiratory: Clear
Cardiac: S1/S2 and Regular Rhythm
GI: Soft, Non Tender and Non Distended
Musculoskeletal: No Clubbing, No Cyanosis, No Edema and Other (RLE shortened and internally rotated)
Skin: Warm and Dry
Neuro: AO x 3 and No Motor Deficits
#Right comminuted femoral neck fracture, on Eliquis, last dose noon on 10/20 2/2 mechanical fall
-R hip Gamma Nail 10/22 Ritting
-hold Eliquis
-Pain management IV prn
-supportive care
-bowel regimen
-Skin clip removal 2 weeks postop
-Return to office 4 weeks for x-ray
# Acute metabolic encephalopathy
� Postprocedure
� Avoid narcotics if possible
-returning back to baseline
-stop gabapentin
#Acute Blood loss Anemia
-s/p gamma nail
-monitor while ortho placed back on eliquis
-transfuse 1u today
-monitor cbc
#HELENA
-most likley post op blood loss v hypotension v dehydration
-LR bolus now
-hold ACEI
#PAF on Eliquis
-hold eliquis due to bleeding
-Tele monitoring, waiting on med rec to add beta liliana
-BB
#Essential HTN - BB, hold ACEI
# CAD - BB, hold ACEI
#GI bleed, duodenal ulcer, Schatzki ring, history of
#Small Hiatal Hernia, history of
#spinal stenosis
-on tramadol at home; dilaudid inpatient
DVT proph-Eliquis
Full Code
Anticipated Discharge: 24 - 48 hours
Subjective/Interval History
-
Date of Service: October 25, 2023
no acute events, mental status greatly improved
Objective Data
-
Labs:
Laboratory Results
10/25/23
05:27
WBC 10.5
Hgb 6.5 L* D
Hct 18.7 L*
Plt Count 165 D
Sodium 139
Potassium 4.3
Chloride 109 H
Carbon Dioxide 24
BUN 24 H
Creatinine 1.0
Glucose 94
Calcium 8.2 L
Vital Signs:
Vital Signs
Temp Pulse Resp BP Pulse Ox
98.4 F 94 18 142/59 96
10/25/23 11:22 10/25/23 11:22 10/25/23 11:22 10/25/23 11:22 10/25/23 10:55
I&O
10/24/23 10/25/23 10/26/23
06:59 06:59 06:59
Intake Total 1650 / 1650 3440 / 3440 0 / 0
Output Total 850 / 850 325 / 325
Balance 800 / 800 3115 / 3115 0 / 0
Review of Systems
-
History Source: Patient
All other systems: Not reviewed unless documented
Data Reviewed
-
Diagnostic Radiology: Report Reviewed by me
Labs: Labs Reviewed by me
[2023-10-25] MEDS: SENOKOT 17.2 MG PO (21:48)
[2023-10-25] MEDS: COLACE 100 MG PO (21:48)
[2023-10-26] MEDS: TYLENOL 650 MG PO ×6 (00:20→20:51)
[2023-10-26] MEDS: DILAUDID 0.5 MG IV ×4 (01:16→23:27)
[2023-10-26 03:51] VITALS: BP 135/64
[2023-10-26] MEDS: NSS 1000 IV ×2 (04:36→17:51)
[2023-10-26 06:33] LABS: Hematocrit 21.4 % (37.0-47.0); Hemoglobin 7.3 g/dL (12.0-16.0); Mean Corp Hgb Conc. 34.1 g/dL (33.0-37.0); Mean Corpuscular Hgb 30.8 pg (27.0-31.0); Mean Corpuscular Volume 90.3 fL (81.0-99.0); Mean Platelet Volume 10.7 fL (7.4-10.4); Platelet Count 183 10^3/uL (130-400); Red Blood Cell Count 2.37 10^6/uL (4.20-5.40); Red Cell Dist. Width 13.2 % (11.5-14.5); White Blood Cell Count 8.9 10^3/uL (4.8-10.8)
[2023-10-26 07:04] LABS: Blood Urea Nitrogen 13 mg/dl (7-17); Calcium 8.2 mg/dl (8.4-10.2); Carbon Dioxide 26 mmol/L (22-30); Chloride 109 mmol/L (98-107); Estimated Creatinine Clearance 52 ml/min; Glucose 91 mg/dl (70-99); Sodium 140 mmol/L (135-145); eGFR > 60.00
[2023-10-26 07:10] VITALS: BP 149/71
--- NOTE | 2023-10-26 08:13 | W.PN.UPDATE ---
Update Note
Progress Note Update
Ms. Abbott is resting in bed this morning. She is s/p right hip CMN under the direction of Dr. Jarquin on 10/22/2023. She endorses quite a bit of pain in the hip this morning. Her is at the bedside, and reports she was able to work with PT,
but had difficulty performing any exercises/ambulating due to pain.
Directed exam of the right lower extremity reveals middle surgical dressing saturated with blood. Proximal and distal dressings clean, dry and intact. Thigh soft and compressible. Calf soft and nontender. Patient able to wiggle toes, plantar and
dorsiflex ankle. Neurovascuallry intact distally.
Hgb 7.3 this AM after 1 unit PRBC yesterday.
83F s/p right hip CMN under the direction of Dr. Jarquin
--Weight bearing as tolerated with walker. We appreciate the assistance of PT/OT.
--Eliquis for DVT prophylactics.
--Hgb 7.3 this AM. Spoke with medicine, will continue to monitor for now.
--Middle surgical dressing changed this AM. Incision was well approximated with roberto. Cleaned with betadine and new Aquacel placed.
--Staple removal at 2 weeks post-op. Return to office 4 weeks post-op for x-ray.
--It sounds like patient will be transferred to SNF once medically stable.
--Orthopedics will continue to follow along for the time being.
[2023-10-26] MEDS: TOPROL XL 100 MG PO (08:16)
[2023-10-26] MEDS: PROTONIX 40 MG PO ×2 (08:16→20:17)
[2023-10-26] MEDS: SENOKOT 17.2 MG PO ×2 (08:16→20:17)
[2023-10-26] MEDS: COLACE 100 MG PO ×2 (08:17→20:17)
--- NOTE | 2023-10-26 11:31 | W.PN.HOSP.TC ---
Today's Communication/Plan
-
Monitor CBC, trial DVT prophylaxis tomorrow if hemoglobin remained stable
Pain control
Assessment / Plan
Assessment / Plan
Physical Exam
General: Comfortable, Conversant
HEENT: NormoCephalic, Anicteric and Moist mucous membranes
Respiratory: Clear
Cardiac: S1/S2 and Regular Rhythm
GI: Soft, Non Tender and Non Distended
Musculoskeletal: No Clubbing, No Cyanosis, No Edema and Other (RLE shortened and internally rotated)
Skin: Warm and Dry
Neuro: AO x 3 and No Motor Deficits
#Right comminuted femoral neck fracture, on Eliquis, last dose noon on 10/20 2/2 mechanical fall
-R hip Gamma Nail 10/22 Ritting
-hold Eliquis
-Pain management IV prn
-supportive care
-bowel regimen
-Skin clip removal 2 weeks postop
-Return to office 4 weeks for x-ray
# Acute metabolic encephalopathy
� Postprocedure
� Avoid narcotics if possible
-returning back to baseline
-stop gabapentin, can consider restarting upon discharge
#Acute Blood loss Anemia
-s/p gamma nail
-monitor while ortho placed back on eliquis
-transfuse 1u 10/24�responded well
-monitor cbc
� If hemoglobin stable, trial DVT prophylaxis tomorrow
#HELENA
-most likley post op blood loss v hypotension v dehydration
� Resolving
-LR bolus now
-hold ACEI
#PAF on Eliquis
-hold eliquis due to bleeding
-Tele monitoring, waiting on med rec to add beta liliana
-BB
#Essential HTN - BB, hold ACEI
# CAD - BB, hold ACEI
#GI bleed, duodenal ulcer, Schatzki ring, history of
#Small Hiatal Hernia, history of
#spinal stenosis
-on tramadol at home; dilaudid inpatient
DVT proph-Eliquis
Full Code
Anticipated Discharge: > 48 hours
Subjective/Interval History
-
Date of Service: October 26, 2023
No acute events overnight
Objective Data
-
Labs:
Laboratory Results
10/26/23
05:19
WBC 8.9
Hgb 7.3 L
Hct 21.4 L
Plt Count 183
Sodium 140
Potassium 4.0
Chloride 109 H
Carbon Dioxide 26
BUN 13
Creatinine 0.8
Glucose 91
Calcium 8.2 L
Vital Signs:
Vital Signs
Temp Pulse Resp BP Pulse Ox
98.4 F 100 18 149/71 100
10/26/23 07:10 10/26/23 08:16 10/26/23 07:10 10/26/23 08:16 10/26/23 07:10
I&O
10/25/23 10/26/23 10/27/23
06:59 06:59 06:59
Intake Total 3440 / 3440 1809
Output Total 325 / 325
Balance 3115 / 3115 1809
Review of Systems
-
History Source: Patient
All other systems: Not reviewed unless documented
Physical Exam
-
General: No Apparent Distress
HEENT: PERRLA
Respiratory: Clear to Auscultation; Negative Wheezes
Cardiac: S1/S2
GI: Soft and Nontender
Musculoskeletal: No Edema
Skin: Warm and Dry; Negative Rash
Neuro: AO x 3
Psych: Calm
Data Reviewed
-
Diagnostic Radiology: Report Reviewed by me
Labs: Labs Reviewed by me
[2023-10-26 14:30] VITALS: BP 158/82; PULSE 86; O2SAT 96
[2023-10-26 15:27] VITALS: BP 144/84
--- NOTE | 2023-10-26 16:54 | PTCARENOTE ---
Patient unable to stand to get back to bed. Patient assisted back to bed via slid assist by nursing staff. Patient began saying 'you are like [place] crackers [place]. You do it like the little crackers/girls. All those crackers hurting my people.'
Charge nurse informed patient that the nurses are not hurting her and that we are turning her to get extra linens out from under her. Patients at bedside and reinforcing that nurses are there to help her and are not hurting her. Care remains
ongoing at this time.
[2023-10-26 23:18] VITALS: BP 163/80
[2023-10-26 23:40] VITALS: BP 149/76
[2023-10-27] MEDS: TYLENOL PO (00:28)
[2023-10-27] MEDS: TYLENOL 650 MG PO ×6 (04:41→23:13)
[2023-10-27 07:10] VITALS: BP 159/68
[2023-10-27] MEDS: NSS 1000 IV (07:30)
[2023-10-27 07:34] LABS: Hematocrit 22.5 % (37.0-47.0); Hemoglobin 7.7 g/dL (12.0-16.0); Mean Corp Hgb Conc. 34.2 g/dL (33.0-37.0); Mean Corpuscular Hgb 31.2 pg (27.0-31.0); Mean Corpuscular Volume 91.1 fL (81.0-99.0); Mean Platelet Volume 10.1 fL (7.4-10.4); Platelet Count 199 10^3/uL (130-400); Red Blood Cell Count 2.47 10^6/uL (4.20-5.40); Red Cell Dist. Width 13.1 % (11.5-14.5); White Blood Cell Count 8.2 10^3/uL (4.8-10.8)
[2023-10-27 08:09] LABS: Blood Urea Nitrogen 7 mg/dl (7-17); Calcium 8.5 mg/dl (8.4-10.2); Carbon Dioxide 27 mmol/L (22-30); Chloride 108 mmol/L (98-107); Estimated Creatinine Clearance 59 ml/min; Glucose 84 mg/dl (70-99); Potassium 3.6 mmol/L (3.5-5.1); Sodium 138 mmol/L (135-145); eGFR > 60.00
--- NOTE | 2023-10-27 08:25 | W.PN.UPDATE ---
Update Note
Progress Note Update
Ms. Abbott is resting in bed this morning. She is s/p right hip CMN under the direction of Dr. Jarquin on 10/22/2023. She is resting comfortably in bed this morning. She is sleepy, but does answer questions appropriately.
Directed exam of the right lower extremity reveals middle surgical dressing with small area of dried blood. Proximal and distal dressings clean, dry and intact. Thigh soft and compressible. Calf soft and nontender. Patient able to wiggle toes,
plantar and dorsiflex ankle. Neurovascuallry intact distally.
Hgb 7.7 this AM, improved from 7.3 yesterday.
83F s/p right hip CMN under the direction of Dr. Jarquin
--Weight bearing as tolerated with walker. We appreciate the assistance of PT/OT.
--Eliquis for DVT prophylactics.
--Hgb 7.7 this AM. Continue to monitor.
--Maintain Aquacel dressing until 7-10 days post-op. Reinforce or change as needed.
--Staple removal at 2 weeks post-op. Return to office 4 weeks post-op for x-ray.
--It sounds like patient will be transferred to SNF once medically stable.
--Patient has stabilized post-operatively from an orthopedic standpoint. Orthopedics will sign off for now. Please reach out with any additional orthopedic questions or concerns.
[2023-10-27] MEDS: SENOKOT PO ×2 (08:30→19:53)
[2023-10-27] MEDS: COLACE PO ×2 (08:30→19:53)
[2023-10-27] MEDS: PROTONIX 40 MG PO ×2 (08:31→19:53)
[2023-10-27] MEDS: TOPROL XL 100 MG PO (08:31)
--- NOTE | 2023-10-27 11:44 | CM ---
CM met with pt's spouse at bedside.
Explained a referral has been sent for SNF to [facility] which is pending. Attempted to identify alternative facilities should [facility] not have a bed. Offered choice of facility. Spouse first preference is for [facility]. Spouse is agreeable to
alternative referrals being sent as a back up plan, preference is local to [place]. Will send referral to [facility] as discussed.
--- NOTE | 2023-10-27 12:23 | PTCARENOTE ---
Pt uncooperative with care and tearful throughout shift. Pt refusing meds this am crying stating ' let me go'and then tightly closing eyes and appearing to be asleep when RN speaking with her. RN able to get pt to agree to am meds after sitting pt
upright in bed and turning on bright lights. Pt easily arouses with verbal stimuli. Pt then repositioned in bed and covered with warm blankets. Pt incontinent of stool and urine, refusing to be turned for perineal care/ hygiene. Pt trying to refuse
T&R for pressure ulcer prevention, Pt educated on skin breakdown and importance of perineal care. Pt continuing to groan/ cry. Pt refusing oral intake other than a few sips of water/ orange juice. IVF infusing per order. Pts at bedside and
reinforcing with pt need to cooperate with perineal care, turning and repositioning, and eating. Katherine PCT witness.
--- NOTE | 2023-10-27 12:40 | W.PN.HOSP.TC ---
Today's Communication/Plan
-
Trial DVT ppx, possible eliquis initiation tomorrow
plan for SNF upon dc
Assessment / Plan
Assessment / Plan
Physical Exam
General: Comfortable, Conversant
HEENT: NormoCephalic, Anicteric and Moist mucous membranes
Respiratory: Clear
Cardiac: S1/S2 and Regular Rhythm
GI: Soft, Non Tender and Non Distended
Musculoskeletal: No Clubbing, No Cyanosis, No Edema and Other (RLE shortened and internally rotated)
Skin: Warm and Dry
Neuro: AO x 3 and No Motor Deficits
#Right comminuted femoral neck fracture, on Eliquis, last dose noon on 10/20 2/2 mechanical fall
-R hip Gamma Nail 10/22 Ritting
-hold Eliquis
-Pain management IV prn
-supportive care
-bowel regimen
-Weight bearing as tolerated with walker.
-Skin clip removal 2 weeks postop
-Return to office 4 weeks for x-ray
# Acute metabolic encephalopathy, resolved
� Postprocedure�suspect delirium
� Avoid narcotics if possible
-stop gabapentin, can consider restarting upon discharge
#Acute Blood loss Anemia
-s/p gamma nail
-monitor while ortho placed back on eliquis
-transfuse 1u 10/24�responded well
-monitor cbc
� Trial DVT prophylaxis today
#HELENA
-most likley post op blood loss v hypotension v dehydration
� resolved
-s/p fluids
-hold ACEI - was due to helena, but now holding with blood loss
#PAF on Eliquis
-hold eliquis due to bleeding
-Tele monitoring, waiting on med rec to add beta liliana
-BB
#Essential HTN - BB, hold ACEI
# CAD - BB, hold ACEI
#GI bleed, duodenal ulcer, Schatzki ring, history of
#Small Hiatal Hernia, history of
#spinal stenosis
-on tramadol at home; dilaudid inpatient
DVT proph-Eliquis
Full Code
Anticipated Discharge: 24 - 48 hours
Subjective/Interval History
-
Date of Service: October 27, 2023
No acute events overnight
Objective Data
-
Labs:
Laboratory Results
10/27/23
07:25
WBC 8.2
Hgb 7.7 L
Hct 22.5 L
Plt Count 199
Sodium 138
Potassium 3.6
Chloride 108 H
Carbon Dioxide 27
BUN 7
Creatinine 0.7
Glucose 84
Calcium 8.5
Vital Signs:
Vital Signs
Temp Pulse Resp BP Pulse Ox
97.9 F 79 16 159/68 96
10/27/23 07:10 10/27/23 07:10 10/27/23 07:10 10/27/23 07:10 10/27/23 07:10
I&O
10/26/23 10/27/23 10/28/23
06:59 06:59 06:59
Intake Total 18090 2580 / 2580
Balance 1809 2580 / 2580
Review of Systems
-
History Source: Patient
All other systems: Not reviewed unless documented
Data Reviewed
-
Diagnostic Radiology: Report Reviewed by me
Labs: Labs Reviewed by me
[2023-10-27 15:05] VITALS: BP 166/83
[2023-10-27 16:15] VITALS: BP 132/92; BP 175/89; PULSE 89; O2SAT 95
[2023-10-27 16:18] VITALS: BP 132/92; BP 175/89; PULSE 89; O2SAT 100
[2023-10-27] MEDS: HEPARIN 5000 UNITS SC ×2 (17:06→23:13)
[2023-10-27 23:20] VITALS: BP 165/82
[2023-10-28] MEDS: TYLENOL PO (05:00)
[2023-10-28 06:46] LABS: Hematocrit 25.6 % (37.0-47.0); Hemoglobin 8.8 g/dL (12.0-16.0); Mean Corp Hgb Conc. 34.4 g/dL (33.0-37.0); Mean Corpuscular Hgb 31.8 pg (27.0-31.0); Mean Corpuscular Volume 92.4 fL (81.0-99.0); Mean Platelet Volume 10.3 fL (7.4-10.4); Platelet Count 258 10^3/uL (130-400); Red Blood Cell Count 2.77 10^6/uL (4.20-5.40); Red Cell Dist. Width 13.2 % (11.5-14.5); White Blood Cell Count 8.5 10^3/uL (4.8-10.8)
[2023-10-28 06:54] LABS: Blood Urea Nitrogen 7 mg/dl (7-17); Calcium 8.9 mg/dl (8.4-10.2); Carbon Dioxide 25 mmol/L (22-30); Chloride 104 mmol/L (98-107); Estimated Creatinine Clearance 69 ml/min; Glucose 89 mg/dl (70-99); Potassium 3.6 mmol/L (3.5-5.1); Sodium 139 mmol/L (135-145); eGFR > 60.00
[2023-10-28 07:05] VITALS: BP 186/106
[2023-10-28] MEDS: PROTONIX 40 MG PO ×2 (07:49→19:36)
[2023-10-28] MEDS: COLACE 100 MG PO ×2 (07:49→19:36)
[2023-10-28] MEDS: TYLENOL 650 MG PO ×4 (07:49→19:36)
[2023-10-28] MEDS: HEPARIN 5000 UNITS SC (07:49)
[2023-10-28] MEDS: TOPROL XL 100 MG PO (07:50)
[2023-10-28] MEDS: SENOKOT PO ×2 (07:50→21:00)
--- NOTE | 2023-10-28 08:46 | W.PN.UPDATE ---
Update Note
Progress Note Update
Patient now POD#6 from gamma nail fixation of her right hip (Ritting October 29). Very little interaction on rounds this morning, which seems to be baseline. Not much motivation to participate with physical therapy. Hgb up to 8.8. Dressings
with mild, dried, strikethrough right thigh. DNVI RLE. May need continued motivation here. Plan per CM, appears to be SNF when medically optimized. [place] out at 2 weeks. Outpatient Ortho follow-up 4 weeks for Xray
[2023-10-28] MEDS: ULTRAM 50 MG PO ×3 (10:11→22:13)
[2023-10-28 11:30] VITALS: BP 166/84; PULSE 97; O2SAT 98
[2023-10-28 11:34] VITALS: BP 168/96; PULSE 97; O2SAT 97
--- NOTE | 2023-10-28 11:48 | W.PN.HOSP.TC ---
Today's Communication/Plan
-
Resume Eliquis tonight
Resume gabapentin at half dose
Resume lisinopril
Tramadol as needed
Assessment / Plan
Assessment / Plan
Gen-AAOx3, NAD
HEENT-NC, AT, anicteric, clear oral mm
Neck-supple
CV-reg, no M, +S1/S2
Lungs-clear B/L
Abd-soft, NT, ND
Ext-no edema
Musculoskeletal-no cyanosis, clubbing
Skin-warm and dry
Neuro-grossly non-focal
Psych-calm, cooperative
Acute Right comminuted femoral neck fracture -due to fall at home.
-Right hip Gamma Nail 10/22 Ritting
-Weight bearing as tolerated with walker.
-Skin clip removal 2 weeks postop
-Return to office 4 weeks for x-ray
Acute metabolic encephalopathy - resolved. Resume gabapentin at half the home dose.
Acute Blood loss Anemia -due to operative blood loss. Hemoglobin improved with transfusion. 8.8 today. Monitor for now.
HELENA -resolved.
PAF -okay to resume Eliquis tonight. Discussed with orthopedics.
Essential HTN -blood pressure elevated. Resume lisinopril. Continue Toprol-XL 100 mg daily.
CAD -stable.
GI bleed, duodenal ulcer, Schatzki ring
Small Hiatal Hernia
spinal stenosis -resume tramadol, gabapentin but will lower dose by 50%.
DVT proph-Eliquis
Full Code
Dispo -medically stable for discharge to SNF, updated case management. Updated at the bedside.
Anticipated Discharge: Within 24 hours
Subjective/Interval History
-
Date of Service: October 28, 2023
Patient seen and examined. No complaints.
Objective Data
-
Labs:
Laboratory Results
10/28/23
05:58
WBC 8.5
Hgb 8.8 L
Hct 25.6 L
Plt Count 258 D
Sodium 139
Potassium 3.6
Chloride 104
Carbon Dioxide 25
BUN 7
Creatinine 0.6
Glucose 89
Calcium 8.9
Vital Signs:
Vital Signs
Temp Pulse Resp BP Pulse Ox
97.1 F 94 16 177/86 99
10/28/23 07:05 10/28/23 07:50 10/28/23 07:05 10/28/23 07:50 10/28/23 08:00
I&O
10/27/23 10/28/23 10/29/23
06:59 06:59 06:59
Intake Total 2580 / 2580 1680 / 1680
Balance 2580 / 2580 1680 / 1680
Review of Systems
-
History Source: Patient
All other systems: Reviewed and negative
[2023-10-28 15:15] VITALS: BP 144/87
--- NOTE | 2023-10-28 15:37 | PTCARENOTE ---
Pt c/o b/l calf pain. States R worse than her L. B/l calves are not red, or swollen. Dr. Gray notified. No new orders at this time. Pt instructed and encouraged to practice ankle pumps. B/l foot pumps remain on while patient is in bed.
[2023-10-28] MEDS: NEURONTIN 300 MG PO ×2 (15:53→22:13)
[2023-10-28] MEDS: ELIQUIS 5 MG PO (19:36)
[2023-10-28 23:26] VITALS: BP 160/81
[2023-10-29] MEDS: TYLENOL PO ×2 (00:41→05:00)
[2023-10-29 07:08] VITALS: BP 180/90
[2023-10-29 07:14] LABS: % Basophils 0.4 % (0-2); % Eosinophils 2.3 % (0-6); % Immature Granulocytes 0.6 % (0-0.5); % Lymphocytes 16.8 % (20.5-51.1); % Monocytes 8.2 % (1.7-9.3); % Neutrophils 71.7 % (42.2-75.2); Absolute Eosinophils 0.2 10^3/uL (0-0.7); Absolute Immature Granulocytes 0.1 10^3/uL (0-0.05); Absolute Lymphocytes 1.7 10^3/uL (1.2-3.4); Absolute Monocytes 0.8 10^3/uL (0.1-0.6); Absolute Neutrophils 7.2 10^3/uL (1.4-6.5); Hematocrit 26.3 % (37.0-47.0); Hemoglobin 8.7 g/dL (12.0-16.0); Mean Corp Hgb Conc. 33.1 g/dL (33.0-37.0); Mean Corpuscular Hgb 30.7 pg (27.0-31.0); Mean Corpuscular Volume 92.9 fL (81.0-99.0); Mean Platelet Volume 10.1 fL (7.4-10.4); Nucleated Red Blood Cells % 0 %; Platelet Count 294 10^3/uL (130-400); Red Blood Cell Count 2.83 10^6/uL (4.20-5.40); Red Cell Dist. Width 14.1 % (11.5-14.5)
[2023-10-29 07:55] VITALS: BP 160/78
[2023-10-29] MEDS: PROTONIX 40 MG PO ×2 (08:22→20:30)
[2023-10-29] MEDS: TOPROL XL 100 MG PO (08:23)
[2023-10-29] MEDS: NEURONTIN 300 MG PO ×3 (08:23→21:33)
[2023-10-29] MEDS: ZESTRIL 5 MG PO (08:23)
[2023-10-29] MEDS: TYLENOL 650 MG PO ×5 (08:23→23:46)
[2023-10-29] MEDS: ELIQUIS 5 MG PO ×2 (08:23→20:28)
[2023-10-29] MEDS: COLACE 100 MG PO ×2 (08:23→20:30)
[2023-10-29] MEDS: ULTRAM 50 MG PO ×2 (08:24→14:52)
[2023-10-29] MEDS: SENOKOT PO ×2 (08:38→20:31)
[2023-10-29 09:17] VITALS: BMI 27.0
--- NOTE | 2023-10-29 11:18 | CM ---
CM following re: discharge planning.
Reviewed pt's chart met with pt.
According to pt is medically stable to be discharged. Pt is aware, IMM reviewed, placed on chart, pt has a copy.
[facility] offered a bed based on bed availability on the day of discharge. CM spoke to [facility] nurses director and she confirmed that pt is accepted for admission tomorrow. pt is aware, expressed her great satisfaction and she stated
that [facility] was number one option and she and her live near [facility].
CM initiated an auth on [facility] for admission to [facility] tomorrow 10/30/23. Ref. number: [id number]. Pt's clinical faxed to [facility] for a review at [phone]
Awaiting for an auth.
D/C plan: [facility] tomorrow 10/30/23. Awaiting for an auth.
CM will follow to assist pt with discharge to [facility].
[2023-10-29 12:05] VITALS: BP 153/90; PULSE 89; O2SAT 97; O2SAT 98
--- NOTE | 2023-10-29 12:28 | CM ---
Received call from Laurie looking for attendings NPI#, provided.
--- NOTE | 2023-10-29 13:33 | W.PN.HOSP.TC ---
Today's Communication/Plan
-
Debrox drops
Discharge planning
Assessment / Plan
Assessment / Plan
Gen-AAOx3, NAD
HEENT-NC, AT, anicteric, clear oral mm
Neck-supple
CV-reg, no M, +S1/S2
Lungs-clear B/L
Abd-soft, NT, ND
Ext-no edema
Musculoskeletal-no cyanosis, clubbing
Skin-warm and dry
Neuro-grossly non-focal
Psych-calm, cooperative
Acute Right comminuted femoral neck fracture -due to fall at home.
-Right hip Gamma Nail 10/22 Ritting
-Weight bearing as tolerated with walker.
-Skin clip removal 2 weeks postop
-Return to office 4 weeks for x-ray
Acute metabolic encephalopathy - resolved. Resumed gabapentin at half the home dose.
Acute Blood loss Anemia -due to operative blood loss. Hemoglobin improved with transfusion, stable at 8.7.
HELENA -resolved.
PAF -okay to resume Eliquis tonight. Discussed with orthopedics.
Essential HTN -blood pressure elevated. Resume lisinopril. Continue Toprol-XL 100 mg daily. Recheck blood pressure later today after meds.
CAD -stable.
GI bleed, duodenal ulcer, Schatzki ring
Small Hiatal Hernia
spinal stenosis -resume tramadol, gabapentin but will lower dose by 50%.
DVT proph-Eliquis
Full Code
Dispo -medically stable for discharge to SNF, updated case management. Updated at the bedside.
Suspect she has earwax buildup causing her symptoms. Debrox drops ordered.
Anticipated Discharge: Within 24 hours
Subjective/Interval History
-
Date of Service: October 29, 2023
Patient seen and examined. Complaining of echoing sound in her ears.
Objective Data
-
Labs:
Laboratory Results
10/29/23
06:07
WBC 10.0
Hgb 8.7 L
Hct 26.3 L
Plt Count 294
Vital Signs:
Vital Signs
Temp Pulse Resp BP Pulse Ox
98.3 F 91 15 160/78 97
10/29/23 07:08 10/29/23 07:08 10/29/23 07:08 10/29/23 07:55 10/29/23 07:08
I&O
10/28/23 10/29/23 10/30/23
06:59 06:59 06:59
Intake Total 1680 / 1680 1080 / 1080
Balance 1680 / 1680 1080 / 1080
Review of Systems
-
History Source: Patient
All other systems: Reviewed and negative
[2023-10-29 15:04] VITALS: BP 146/74
[2023-10-29] MEDS: DEBROX EAR DROPS 5 DROP OTIC (20:29)
[2023-10-29 23:22] VITALS: BP 161/81
[2023-10-30] MEDS: ULTRAM 50 MG PO ×3 (00:43→18:42)
[2023-10-30] MEDS: TYLENOL 650 MG PO ×5 (04:53→23:28)
[2023-10-30 06:45] LABS: % Basophils 0.3 % (0-2); % Eosinophils 2.4 % (0-6); % Lymphocytes 24.3 % (20.5-51.1); % Monocytes 7.7 % (1.7-9.3); % Neutrophils 64.3 % (42.2-75.2); Absolute Eosinophils 0.3 10^3/uL (0-0.7); Absolute Immature Granulocytes 0.1 10^3/uL (0-0.05); Absolute Lymphocytes 2.8 10^3/uL (1.2-3.4); Absolute Monocytes 0.9 10^3/uL (0.1-0.6); Absolute Neutrophils 7.4 10^3/uL (1.4-6.5); Hematocrit 28.2 % (37.0-47.0); Hemoglobin 9.4 g/dL (12.0-16.0); Mean Corp Hgb Conc. 33.3 g/dL (33.0-37.0); Mean Corpuscular Volume 93.1 fL (81.0-99.0); Mean Platelet Volume 10.2 fL (7.4-10.4); Nucleated Red Blood Cells % 0 %; Platelet Count 346 10^3/uL (130-400); Red Blood Cell Count 3.03 10^6/uL (4.20-5.40); Red Cell Dist. Width 14.8 % (11.5-14.5); White Blood Cell Count 11.5 10^3/uL (4.8-10.8)
[2023-10-30 07:14] VITALS: BP 158/71
--- NOTE | 2023-10-30 08:43 | W.PN.HOSP.TC ---
Today's Communication/Plan
-
Discharge planning
Assessment / Plan
Assessment / Plan
Gen-AAOx3, NAD
HEENT-NC, AT, anicteric, clear oral mm
Neck-supple
CV-reg, no M, +S1/S2
Lungs-clear B/L
Abd-soft, NT, ND
Ext-no edema
Musculoskeletal-no cyanosis, clubbing
Skin-warm and dry
Neuro-grossly non-focal
Psych-calm, cooperative
Acute Right comminuted femoral neck fracture -due to fall at home.
-Right hip Gamma Nail 10/22 Ritting
-Weight bearing as tolerated with walker.
-Skin clip removal 2 weeks postop
-Return to office 4 weeks for x-ray
Acute metabolic encephalopathy - resolved. Resumed gabapentin at half the home dose.
Acute Blood loss Anemia -due to operative blood loss. Hemoglobin improved with transfusion, stable at 9.4.
HELENA -resolved.
PAF -okay to resume Eliquis tonight. Discussed with orthopedics.
Essential HTN -continue current meds.
CAD -stable.
GI bleed, duodenal ulcer, Schatzki ring
Small Hiatal Hernia
spinal stenosis -resume tramadol, gabapentin but will lower dose by 50%.
DVT proph-Eliquis
Earwax buildup -continue Debrox.
Full Code
Dispo -medically stable for discharge to SNF, updated case management. Awaiting insurance authorization.
Anticipated Discharge: Within 24 hours
Subjective/Interval History
-
Date of Service: October 30, 2023
Patient seen and examined. No new complaints.
Objective Data
-
Labs:
Laboratory Results
10/30/23
05:49
WBC 11.5 H
Hgb 9.4 L
Hct 28.2 L
Plt Count 346
Vital Signs:
Vital Signs
Temp Pulse Resp BP Pulse Ox
98.3 F 80 16 158/71 97
10/30/23 07:14 10/30/23 07:14 10/30/23 07:14 10/30/23 07:14 10/30/23 07:14
I&O
10/29/23 10/30/23 10/31/23
06:59 06:59 06:59
Intake Total 1080 / 1080 2100 / 2100
Balance 1080 / 1080 2100 / 2100
Review of Systems
-
History Source: Patient
All other systems: Reviewed and negative
--- NOTE | 2023-10-30 09:33 | CM ---
Addendum entered by Alexandrea Hernandez 10/30/23 14:00:
[employer] requesting patients clinicals, refaxed to [phone]. Patients updated bedside, awaiting insurance auth approval. Nicole at [place] updated.
Original Note:
CM checked status of patients insurance authorization, per [employer], authorization Ref. number: [id number] pending, under review. CM will continue to check auth status for patient to go to [facility]. CM will continue to follow for all discharge
planning needs.
Plan; [facility], auth pending.
[2023-10-30] MEDS: NEURONTIN 300 MG PO ×3 (10:57→21:38)
[2023-10-30] MEDS: SENOKOT 17.2 MG PO ×2 (10:58→20:48)
[2023-10-30] MEDS: PROTONIX 40 MG PO ×2 (10:58→20:49)
[2023-10-30] MEDS: ELIQUIS 5 MG PO ×2 (10:58→20:49)
[2023-10-30] MEDS: ZESTRIL 5 MG PO (10:58)
[2023-10-30] MEDS: COLACE 100 MG PO ×2 (10:58→20:49)
[2023-10-30] MEDS: TOPROL XL 100 MG PO (10:58)
[2023-10-30] MEDS: DEBROX EAR DROPS 5 DROP OTIC ×2 (10:59→20:48)
[2023-10-30] MEDS: TYLENOL PO (12:00)
[2023-10-30 12:10] VITALS: BP 157/84; PULSE 90; O2SAT 98
[2023-10-30 12:25] VITALS: BP 157/84; PULSE 90; O2SAT 98
[2023-10-30 15:12] VITALS: BP 139/63
[2023-10-30 23:26] VITALS: BP 128/80
[2023-10-31] MEDS: TYLENOL 650 MG PO ×4 (04:38→20:17)
[2023-10-31 07:00] VITALS: BP 156/77
[2023-10-31] MEDS: PROTONIX 40 MG PO ×2 (08:51→20:17)
[2023-10-31] MEDS: NEURONTIN 300 MG PO ×4 (08:51→22:01)
[2023-10-31] MEDS: COLACE 100 MG PO ×2 (08:51→20:16)
[2023-10-31] MEDS: ELIQUIS 5 MG PO ×2 (08:51→20:17)
[2023-10-31] MEDS: SENOKOT 17.2 MG PO ×2 (08:51→20:17)
[2023-10-31] MEDS: ZESTRIL 5 MG PO (08:52)
[2023-10-31] MEDS: DEBROX EAR DROPS 1 DROP OTIC ×2 (08:54→20:18)
[2023-10-31] MEDS: TOPROL XL 100 MG PO (08:55)
[2023-10-31] MEDS: ULTRAM 50 MG PO ×3 (09:01→22:21)
--- NOTE | 2023-10-31 10:53 | CM ---
Addendum entered by Cami Galvez 10/31/23 13:48:
Contacted [employer] via phone to obtain status of Authorization for SNF. Automated response reported that Auth is pending clinical review
Original Note:
Met with patient and spouse at bedside; explained that [employer] AUTH for SNF is still pending approval
CMS IMM benefit explained; signed form @ 1050
Plan: discharge to SNF @ [facility] pending AUTH approval
--- NOTE | 2023-10-31 11:31 | W.PN.HOSP.TC ---
Today's Communication/Plan
-
Discharge planning
Assessment / Plan
Assessment / Plan
Gen-AAOx3, NAD
HEENT-NC, AT, anicteric, clear oral mm
Neck-supple
CV-reg, no M, +S1/S2
Lungs-clear B/L
Abd-soft, NT, ND
Ext-no edema
Musculoskeletal-no cyanosis, clubbing
Skin-warm and dry
Neuro-grossly non-focal
Psych-calm, cooperative
Acute Right comminuted femoral neck fracture -due to fall at home.
-Right hip Gamma Nail 10/22 Ritting
-Weight bearing as tolerated with walker.
-Skin clip removal 2 weeks postop
-Return to office 4 weeks for x-ray
Acute metabolic encephalopathy - resolved. Resumed gabapentin at half the home dose.
Acute Blood loss Anemia -due to operative blood loss. Hemoglobin improved with transfusion, stable at 9.4.
HELENA -resolved.
PAF -okay to resume Eliquis tonight. Discussed with orthopedics.
Essential HTN -continue current meds.
CAD -stable.
GI bleed, duodenal ulcer, Schatzki ring
Small Hiatal Hernia
spinal stenosis -resume tramadol, gabapentin but will lower dose by 50%.
DVT proph-Eliquis
Earwax buildup -continue Debrox.
Full Code
Dispo -medically stable for discharge to SNF, updated case management. Awaiting insurance authorization.
Anticipated Discharge: Within 24 hours
Subjective/Interval History
-
Date of Service: October 31, 2023
Patient seen and examined. No complaints.
Objective Data
-
Vital Signs:
Vital Signs
Temp Pulse Resp BP Pulse Ox
98.3 F 58 12 156/77 99
10/31/23 07:00 10/31/23 07:00 10/31/23 07:00 10/31/23 07:00 10/31/23 07:00
I&O
10/30/23 10/31/23 11/01/23
06:59 06:59 06:59
Intake Total 2099 1800 / 1800
Balance 2099 1800 / 1800
Review of Systems
-
History Source: Patient
All other systems: Reviewed and negative
[2023-10-31 15:22] VITALS: BP 144/72
[2023-10-31] MEDS: TYLENOL PO (16:10)
[2023-10-31 23:19] VITALS: BP 126/85
[2023-11-01] MEDS: TYLENOL 650 MG PO ×5 (00:50→20:18)
[2023-11-01] MEDS: TYLENOL PO (05:10)
[2023-11-01] MEDS: ULTRAM 50 MG PO ×3 (06:35→22:00)
[2023-11-01 07:15] VITALS: BP 149/92
[2023-11-01] MEDS: ZESTRIL 5 MG PO (08:51)
[2023-11-01] MEDS: PROTONIX 40 MG PO ×2 (08:51→20:18)
[2023-11-01] MEDS: NEURONTIN 300 MG PO ×3 (08:51→20:29)
[2023-11-01] MEDS: TOPROL XL 100 MG PO (08:51)
[2023-11-01] MEDS: ELIQUIS 5 MG PO ×2 (08:51→20:18)
[2023-11-01] MEDS: DEBROX EAR DROPS 1 DROP OTIC (08:53)
[2023-11-01] MEDS: SENOKOT PO (09:48)
[2023-11-01] MEDS: COLACE PO (09:48)
[2023-11-01 11:20] VITALS: BP 97/54; PULSE 57; O2SAT 96
[2023-11-01 11:25] VITALS: BP 141/73; PULSE 77; O2SAT 96
--- NOTE | 2023-11-01 12:24 | W.PN.HOSP.TC ---
Today's Communication/Plan
-
Discharge planning
Assessment / Plan
Assessment / Plan
Gen-AAOx3, NAD
HEENT-NC, AT, anicteric, clear oral mm
Neck-supple
CV-reg, no M, +S1/S2
Lungs-clear B/L
Abd-soft, NT, ND
Ext-no edema
Musculoskeletal-no cyanosis, clubbing
Skin-warm and dry
Neuro-grossly non-focal
Psych-calm, cooperative
Acute Right comminuted femoral neck fracture -due to fall at home.
-Right hip Gamma Nail 10/22 Ritting
-Weight bearing as tolerated with walker.
-Skin clip removal 2 weeks postop
-Return to orthopedic office 4 weeks for x-ray
Acute metabolic encephalopathy - resolved. Resumed gabapentin at half the home dose.
Acute Blood loss Anemia -due to operative blood loss. Hemoglobin improved with transfusion, stable at 9.4.
HELENA -resolved.
PAF -okay to resume Eliquis tonight. Discussed with orthopedics.
Essential HTN -continue current meds.
CAD -stable.
GI bleed, duodenal ulcer, Schatzki ring
Small Hiatal Hernia
spinal stenosis -resume tramadol, gabapentin but will lower dose by 50%.
DVT proph-Eliquis
Earwax buildup -continue Debrox.
Full Code
Dispo -medically stable for discharge to SNF, updated case management. Awaiting insurance authorization.
Anticipated Discharge: Within 24 hours
Subjective/Interval History
-
Date of Service: November 01, 2023
Patient seen and examined. No complaints.
Objective Data
-
Vital Signs:
Vital Signs
Temp Pulse Resp BP Pulse Ox
97.7 F 96 17 149/92 96
11/01/23 07:15 11/01/23 07:15 11/01/23 07:15 11/01/23 07:15 11/01/23 07:15
I&O
10/31/23 11/01/23 11/02/23
06:59 06:59 06:59
Intake Total 1800 / 1800 480 / 480
Balance 1800 / 1800 480 / 480
Review of Systems
-
History Source: Patient
All other systems: Reviewed and negative
[2023-11-01 15:20] VITALS: BP 135/73
--- NOTE | 2023-11-01 16:04 | CM ---
Discharge Plan of Care: Awaiting [employer] insurance auth for [facility] SNF. If received on weekend, please leave auth information on Admissions voice message @ [phone].
NURSE TO NURSE REPORT # [phone] Nursing Home Theatre Technician
FAX # [phone]
[2023-11-01] MEDS: COLACE 100 MG PO (20:17)
[2023-11-01] MEDS: DEBROX EAR DROPS 5 DROP OTIC (20:17)
[2023-11-01] MEDS: SENOKOT 17.2 MG PO (20:18)
[2023-11-01] MEDS: MELATONIN 3 MG PO (22:59)
[2023-11-01 23:09] VITALS: BP 150/76
[2023-11-02] MEDS: TYLENOL 650 MG PO ×6 (00:54→23:30)
--- NOTE | 2023-11-02 01:19 | PTCARENOTE ---
Pt. with increased anxiety tonight and inability to sleep since 1999. One time dose of melatonin given earlier with no success. Pt. rang stating she felt like she was having 'a nervous breakdown' thinking about how hard recovery has been, the pain
in her hip, loss of mobility, and lack of progress with obtaining rehab placement. Emotional support provided. Pt. called for emotional support and he stated pt. gets more anxious when taking medication that deviate from her home meds. Pt.
declining to take additional medication tonight.
[2023-11-02] MEDS: TYLENOL PO (04:54)
[2023-11-02] MEDS: ULTRAM 50 MG PO ×2 (06:09→17:52)
[2023-11-02 07:00] VITALS: BP 157/74
[2023-11-02 07:21] LABS: Hematocrit 29.5 % (37.0-47.0); Hemoglobin 9.7 g/dL (12.0-16.0); Mean Corp Hgb Conc. 32.9 g/dL (33.0-37.0); Mean Corpuscular Hgb 32.3 pg (27.0-31.0); Mean Corpuscular Volume 98.3 fL (81.0-99.0); Mean Platelet Volume 9.6 fL (7.4-10.4); Platelet Count 375 10^3/uL (130-400); Red Cell Dist. Width 16.3 % (11.5-14.5); White Blood Cell Count 7.6 10^3/uL (4.8-10.8)
[2023-11-02 08:07] LABS: Blood Urea Nitrogen 12 mg/dl (7-17); Calcium 9.2 mg/dl (8.4-10.2); Carbon Dioxide 31 mmol/L (22-30); Chloride 102 mmol/L (98-107); Estimated Creatinine Clearance 52 ml/min; Glucose 107 mg/dl (70-99); Potassium 3.3 mmol/L (3.5-5.1); Sodium 136 mmol/L (135-145); eGFR > 60.00
[2023-11-02] MEDS: SENOKOT PO ×2 (09:01→19:57)
[2023-11-02] MEDS: COLACE PO (09:01)
[2023-11-02] MEDS: TOPROL XL 100 MG PO (09:06)
[2023-11-02] MEDS: PROTONIX 40 MG PO ×2 (09:06→19:56)
[2023-11-02] MEDS: ELIQUIS 5 MG PO ×2 (09:06→19:56)
[2023-11-02] MEDS: NEURONTIN 300 MG PO ×3 (09:06→23:30)
[2023-11-02] MEDS: ZESTRIL 5 MG PO (09:06)
[2023-11-02] MEDS: DEBROX EAR DROPS OTIC (09:18)
[2023-11-02] MEDS: KCL 40 MEQ PO (12:21)
[2023-11-02 13:03] VITALS: BP 159/78
[2023-11-02 13:05] VITALS: BP 159/78
[2023-11-02 13:06] LABS: Magnesium 1.8 mg/dl (1.6-2.3)
--- NOTE | 2023-11-02 13:26 | W.PN.HOSP.TC ---
Today's Communication/Plan
-
Replete potassium
Discharge planning
Assessment / Plan
Assessment / Plan
Gen-AAOx3, NAD
HEENT-NC, AT, anicteric, clear oral mm
Neck-supple
CV-reg, no M, +S1/S2
Lungs-clear B/L
Abd-soft, NT, ND
Ext-no edema
Musculoskeletal-no cyanosis, clubbing
Skin-warm and dry
Neuro-grossly non-focal
Psych-calm, cooperative
Acute Right comminuted femoral neck fracture -due to fall at home.
-Right hip Gamma Nail 10/22 Ritting
-Weight bearing as tolerated with walker.
-Skin clip removal 2 weeks postop
-Return to orthopedic office 4 weeks for x-ray
Acute metabolic encephalopathy - resolved. Resumed gabapentin at half the home dose.
Acute Blood loss Anemia -due to operative blood loss. Hemoglobin improved with transfusion, has been stable.
Hypokalemia -replete orally. Magnesium normal.
HELENA -resolved.
PAF -continue Eliquis.
Essential HTN -continue current meds.
CAD -stable.
GI bleed, duodenal ulcer, Schatzki ring
Small Hiatal Hernia
spinal stenosis -resume tramadol, gabapentin but will lower dose by 50%.
DVT proph-Eliquis
Earwax buildup -continue Debrox. Symptoms improved.
Full Code
Dispo -medically stable for discharge to SNF, updated case management. Awaiting insurance authorization.
Updated at the bedside.
Anticipated Discharge: 24 - 48 hours
Subjective/Interval History
-
Date of Service: November 02, 2023
Patient seen and examined. No new complaints.
Objective Data
-
Labs:
Laboratory Results
11/02/23
07:00
WBC 7.6
Hgb 9.7 L
Hct 29.5 L
Plt Count 375
Sodium 136
Potassium 3.3 L
Chloride 102
Carbon Dioxide 31 H
BUN 12
Creatinine 0.8
Glucose 107 H
Calcium 9.2
Vital Signs:
Vital Signs
Temp Pulse Resp BP Pulse Ox
98.2 F 82 16 165/79 96
11/02/23 07:00 11/02/23 09:06 11/02/23 07:00 11/02/23 09:06 11/02/23 08:00
I&O
11/01/23 11/02/23 11/03/23
06:59 06:59 06:59
Intake Total 480 / 480 1440 / 1440
Balance 480 / 480 1440 / 1440
Review of Systems
-
History Source: Patient
All other systems: Reviewed and negative
[2023-11-02 15:11] VITALS: BP 98/61
[2023-11-02] MEDS: DEBROX EAR DROPS 5 DROP OTIC (19:56)
[2023-11-02] MEDS: COLACE 100 MG PO (19:57)
[2023-11-02 23:12] VITALS: BP 135/71
[2023-11-03] MEDS: TYLENOL PO (06:34)
[2023-11-03 07:40] VITALS: BP 156/82
--- NOTE | 2023-11-03 08:23 | W.PN.HOSP.TC ---
Today's Communication/Plan
-
Check BMP
Discharge planning
Assessment / Plan
Assessment / Plan
Gen-AAOx3, NAD
HEENT-NC, AT, anicteric, clear oral mm
Neck-supple
CV-reg, no M, +S1/S2
Lungs-clear B/L
Abd-soft, NT, ND
Ext-no edema
Musculoskeletal-no cyanosis, clubbing
Skin-warm and dry
Neuro-grossly non-focal
Psych-calm, cooperative
Acute Right comminuted femoral neck fracture -due to fall at home.
-Right hip Gamma Nail 10/22 Ritting
-Weight bearing as tolerated with walker.
-Skin clip removal 2 weeks postop
-Return to orthopedic office 4 weeks for x-ray
Acute metabolic encephalopathy - resolved. Resumed gabapentin at half the home dose.
Acute Blood loss Anemia -due to operative blood loss. Hemoglobin improved with transfusion, has been stable.
Hypokalemia -replete orally. Magnesium normal. Labs pending for today.
HELENA -resolved.
PAF -continue Eliquis.
Essential HTN -continue current meds.
CAD -stable.
GI bleed, duodenal ulcer, Schatzki ring
Small Hiatal Hernia
spinal stenosis -resume tramadol, gabapentin but will lower dose by 50%.
DVT proph-Eliquis
Earwax buildup -continue Debrox. Symptoms improved.
Full Code
Dispo -medically stable for discharge to SNF, updated case management. Awaiting insurance authorization.
Anticipated Discharge: Within 24 hours
Subjective/Interval History
-
Date of Service: November 03, 2023
Patient seen and examined. No complaints.
Objective Data
-
Labs:
Laboratory Results
11/03/23
06:55
Sodium Pending
Potassium Pending
Chloride Pending
Carbon Dioxide Pending
BUN Pending
Creatinine Pending
Glucose Pending
Calcium Pending
Vital Signs:
Vital Signs
Temp Pulse Resp BP Pulse Ox
97.6 F 87 12 156/82 97
11/03/23 07:40 11/03/23 07:40 11/03/23 07:40 11/03/23 07:40 11/03/23 07:40
I&O
11/02/23 11/03/23 11/04/23
06:59 06:59 06:59
Intake Total 1440 / 1440 440 / 440
Balance 1440 / 1440 440 / 440
Review of Systems
-
History Source: Patient
All other systems: Reviewed and negative
[2023-11-03 09:10] LABS: Blood Urea Nitrogen 10 mg/dl (7-17); Calcium 8.9 mg/dl (8.4-10.2); Carbon Dioxide 29 mmol/L (22-30); Chloride 105 mmol/L (98-107); Estimated Creatinine Clearance 59 ml/min; Glucose 93 mg/dl (70-99); Magnesium 1.9 mg/dl (1.6-2.3); Sodium 136 mmol/L (135-145); eGFR > 60.00
[2023-11-03] MEDS: TYLENOL 650 MG PO ×5 (09:41→23:33)
[2023-11-03] MEDS: ZESTRIL 5 MG PO (09:47)
[2023-11-03] MEDS: SENOKOT 17.2 MG PO ×2 (09:47→20:25)
[2023-11-03] MEDS: NEURONTIN 300 MG PO ×3 (09:47→21:38)
[2023-11-03] MEDS: PROTONIX 40 MG PO ×2 (09:48→20:24)
[2023-11-03] MEDS: COLACE 100 MG PO ×2 (09:48→20:24)
[2023-11-03] MEDS: TOPROL XL 100 MG PO (09:48)
[2023-11-03] MEDS: ELIQUIS 5 MG PO ×2 (09:48→20:24)
[2023-11-03] MEDS: ULTRAM 50 MG PO ×2 (11:51→17:58)
[2023-11-03] MEDS: DEBROX EAR DROPS OTIC ×2 (11:51→20:24)
[2023-11-03 13:33] VITALS: BP 142/77; PULSE 78; O2SAT 96
[2023-11-03 13:35] VITALS: BP 142/77; PULSE 78; O2SAT 96
[2023-11-03 15:42] VITALS: BP 119/66
[2023-11-03 23:47] VITALS: BP 142/75
[2023-11-04] MEDS: TYLENOL 650 MG PO ×5 (04:25→20:26)
[2023-11-04] MEDS: ULTRAM 50 MG PO ×2 (05:17→13:04)
[2023-11-04 07:15] VITALS: BP 159/73
[2023-11-04] MEDS: COLACE PO ×2 (09:00→09:41)
[2023-11-04] MEDS: SENOKOT PO ×2 (09:00→09:41)
[2023-11-04] MEDS: ELIQUIS 5 MG PO ×2 (09:41→20:27)
[2023-11-04] MEDS: NEURONTIN 300 MG PO ×3 (09:41→22:12)
[2023-11-04] MEDS: ZESTRIL 5 MG PO (09:41)
[2023-11-04] MEDS: TOPROL XL 100 MG PO (09:42)
[2023-11-04] MEDS: PROTONIX 40 MG PO ×2 (09:42→20:27)
[2023-11-04] MEDS: DEBROX EAR DROPS OTIC ×2 (10:02→20:25)
--- NOTE | 2023-11-04 11:01 | CM ---
Addendum entered by Loni Erickson 11/04/23 12:59:
customer experience manager reached out to nurse and they have finally received clinical. case resolution specialist is waiting on a determination from insurance.
Original Note:
Chart reviewed and case resolution specialist reached out to patient's insurance and spoke with and per they have not receive clinical on patient, case resolution specialist faxed over clinical to . customer experience manager spoke with admissions at [facility].
Plan; Skilled placement at [facility] pending Auth from insurance.
[2023-11-04 11:05] VITALS: BP 159/84; PULSE 85; O2SAT 98
--- NOTE | 2023-11-04 12:13 | W.PN.HOSP.TC ---
Today's Communication/Plan
-
dc ready, cm aware
Assessment / Plan
Assessment / Plan
Gen-AAOx3, NAD
HEENT-NC, AT, anicteric, clear oral mm
Neck-supple
CV-reg, no M, +S1/S2
Lungs-clear B/L
Abd-soft, NT, ND
Ext-no edema
Musculoskeletal-no cyanosis, clubbing
Skin-warm and dry
Neuro-grossly non-focal
Psych-calm, cooperative
Acute Right comminuted femoral neck fracture -due to fall at home.
-Right hip Gamma Nail 10/22 Ritting
-Weight bearing as tolerated with walker.
-Skin clip removal 2 weeks postop
-Return to orthopedic office 4 weeks from procedure for x-ray
Acute metabolic encephalopathy - resolved. Resumed gabapentin at half the home dose.
Acute Blood loss Anemia -due to operative blood loss. Hemoglobin improved with transfusion, has been stable.
Hypokalemia -replete orally. Magnesium normal. monitor and replete
HELENA -resolved.
PAF -continue Eliquis.
Essential HTN -continue current meds.
CAD -stable.
GI bleed, duodenal ulcer, Schatzki ring
Small Hiatal Hernia
spinal stenosis -resume tramadol, gabapentin but will lower dose by 50%.
DVT proph-Eliquis
Earwax buildup -continue Debrox. Symptoms improved.
Full Code
Dispo -medically stable for discharge to SNF, updated case management. Awaiting insurance authorization.
Anticipated Discharge: 24 - 48 hours
Subjective/Interval History
-
Date of Service: November 04, 2023
still pending bed
Objective Data
-
Vital Signs:
Vital Signs
Temp Pulse Resp BP Pulse Ox
97.8 F 83 12 159/73 96
11/04/23 07:15 11/04/23 07:15 11/04/23 07:15 11/04/23 07:15 11/04/23 07:15
I&O
11/03/23 11/04/23 11/05/23
06:59 06:59 06:59
Intake Total 440 / 440 480 / 480
Balance 440 / 440 480 / 480
Review of Systems
-
History Source: Patient
All other systems: Reviewed and negative
Data Reviewed
-
Diagnostic Radiology: Report Reviewed by me
Labs: Labs Reviewed by me
[2023-11-04 15:06] VITALS: BP 134/67
[2023-11-04] MEDS: COLACE 100 MG PO (20:26)
[2023-11-04] MEDS: SENOKOT 17.2 MG PO (20:26)
[2023-11-04] MEDS: MELATONIN 5 MG PO (22:45)
[2023-11-04 23:19] VITALS: BP 151/78
[2023-11-05] MEDS: TYLENOL 650 MG PO ×5 (00:28→17:18)
[2023-11-05] MEDS: ULTRAM 50 MG PO ×2 (00:44→09:11)
--- NOTE | 2023-11-05 01:13 | PTCARENOTE ---
Pt refusing to get OOB to use BSC and BP while in bed. Despite education on need to get OOB post op. Pt choosing to be incontinent at this time. Pt instructed to use call espinoza when urge to void but pt waits until incontinent and instructs to be
changed.
--- NOTE | 2023-11-05 05:03 | PTCARENOTE ---
Pt used the call espinoza appropriately and the RN and tech assisted the pt with the rolling walker to the BSC.
[2023-11-05 07:10] VITALS: BP 142/79
[2023-11-05 07:20] LABS: Hematocrit 30.5 % (37.0-47.0); Hemoglobin 10.1 g/dL (12.0-16.0); Mean Corp Hgb Conc. 33.1 g/dL (33.0-37.0); Mean Corpuscular Hgb 32.5 pg (27.0-31.0); Mean Corpuscular Volume 98.1 fL (81.0-99.0); Mean Platelet Volume 9.8 fL (7.4-10.4); Platelet Count 401 10^3/uL (130-400); Red Blood Cell Count 3.11 10^6/uL (4.20-5.40); Red Cell Dist. Width 16.6 % (11.5-14.5); White Blood Cell Count 8.8 10^3/uL (4.8-10.8)
[2023-11-05 08:03] LABS: Blood Urea Nitrogen 9 mg/dl (7-17); Calcium 9.1 mg/dl (8.4-10.2); Carbon Dioxide 25 mmol/L (22-30); Chloride 103 mmol/L (98-107); Estimated Creatinine Clearance 59 ml/min; Glucose 100 mg/dl (70-99); Potassium 3.7 mmol/L (3.5-5.1); Sodium 135 mmol/L (135-145); eGFR > 60.00
[2023-11-05] MEDS: NEURONTIN 300 MG PO ×2 (09:07→17:17)
[2023-11-05] MEDS: PROTONIX 40 MG PO (09:07)
[2023-11-05] MEDS: SENOKOT 17.2 MG PO (09:07)
[2023-11-05] MEDS: COLACE 100 MG PO (09:07)
[2023-11-05] MEDS: ZESTRIL 5 MG PO (09:08)
[2023-11-05] MEDS: TOPROL XL 100 MG PO (09:08)
[2023-11-05] MEDS: ELIQUIS 5 MG PO (09:09)
[2023-11-05] MEDS: DEBROX EAR DROPS OTIC (09:09)
--- NOTE | 2023-11-05 09:39 | CM ---
CM reviewed chart. Spoke with [facility] at [facility] who shared that there may not be any bed availability for patient today. CM informed [facility] still awaiting authorization. Updated clinicals sent to [facility] via [employer].
--- NOTE | 2023-11-05 12:27 | W.PN.HOSP.TC ---
Addendum entered and electronically signed by Arnaldo Renae MD 11/06/23 15:10:
[id number]
Original Note:
Today's Communication/Plan
-
pain regimen
dc today
f/u ortho outpatient along with removal of roberto and XR
Assessment / Plan
Assessment / Plan
Gen-AAOx3, NAD
HEENT-NC, AT, anicteric, clear oral mm
Neck-supple
CV-reg, no M, +S1/S2
Lungs-clear B/L
Abd-soft, NT, ND
Ext-no edema
Musculoskeletal-no cyanosis, clubbing
Skin-warm and dry
Neuro-grossly non-focal
Psych-calm, cooperative
Acute Right comminuted femoral neck fracture -due to fall at home.
-Right hip Gamma Nail 10/22 Ritting
-Weight bearing as tolerated with walker.
-Skin clip removal 2 weeks postop
-Return to orthopedic office 4 weeks from procedure for x-ray
Acute metabolic encephalopathy - resolved. Resumed gabapentin at half the home dose.
Acute Blood loss Anemia -due to operative blood loss. Hemoglobin improved with transfusion, has been stable.
Hypokalemia -replete orally. Magnesium normal. monitor and replete
HELENA -resolved.
PAF -continue Eliquis.
Essential HTN -continue current meds.
CAD -stable.
GI bleed, duodenal ulcer, Schatzki ring
Small Hiatal Hernia
spinal stenosis -resume tramadol, gabapentin but will lower dose by 50%.
DVT proph-Eliquis
Earwax buildup -continue Debrox. Symptoms improved.
Full Code
More than 30 minutes spent in discharge including
Final examination of the patient
Summarizing hospital stay
Instructions for continuing care to all relevant caregivers
Preparation of discharge records, prescriptions, and referral forms
Total time spent (35 in minutes):
Anticipated Discharge: Today
Subjective/Interval History
-
Date of Service: November 05, 2023
no acute events
Objective Data
-
Labs:
Laboratory Results
11/05/23
06:52
WBC 8.8
Hgb 10.1 L
Hct 30.5 L
Plt Count 401 H
Sodium 135
Potassium 3.7
Chloride 103
Carbon Dioxide 25
BUN 9
Creatinine 0.7
Glucose 100 H
Calcium 9.1
Vital Signs:
Vital Signs
Temp Pulse Resp BP Pulse Ox
98.0 F 81 14 142/79 95
11/05/23 07:10 11/05/23 07:10 11/05/23 07:10 11/05/23 07:10 11/05/23 09:05
I&O
11/04/23 11/05/23 11/06/23
06:59 06:59 06:59
Intake Total 480 / 480 1919
Balance 480 / 480 1919
Review of Systems
-
History Source: Patient
All other systems: Not reviewed unless documented
Physical Exam
-
General: No Apparent Distress
HEENT: PERRLA
Respiratory: Clear to Auscultation; Negative Wheezes
Cardiac: S1/S2
GI: Soft and Nontender
Musculoskeletal: No Edema
Skin: Warm and Dry; Negative Rash
Neuro: AO x 3
Psych: Calm
Data Reviewed
-
Diagnostic Radiology: Report Reviewed by me
Labs: Labs Reviewed by me
--- NOTE | 2023-11-05 12:29 | W.DS.TRANS ---
DC Summary - Planetarium Technician
-
Discharge Instructions:
Discharge Diagnosis/Procedures s/p Right hip CMN
Diet Low Fat,Low Cholesterol
Activity With Walker,As tolerated
Driving Restrictions Not until seen by your Dr
Bathing Restrictions OK to Shower
Instructions:
Stand-Alone Forms:
Changes to Home Medications: Yes
Discharge Medications:
DC Medications w/original date entered in Taskforce
simvastatin 20 mg tablet 20 mg PO HS High Cholesterol 01/01/14
calcium carbonate 600 mg-vitamin D3 20 mcg (800 unit) chewable tablet (Caltrate 600 plus D) 1 ea PO DAILY Supplement 01/11/15
cholecalciferol (vitamin D3) 50 mcg (2,000 unit) tablet (Vitamin D3) 50 mcg PO DAILY Supplement 01/04/23
cyanocobalamin (vitamin B-12) 1,000 mcg tablet (Vitamin B-12) 1,000 mcg PO DAILY Supplement 01/04/23
multivitamin 1 tab PO DAILY Supplement 01/04/23
apixaban 5 mg tablet (Eliquis) 5 mg PO BID 30 days #60 tabs 01/07/23
lidocaine 4 % topical patch 1 patch topical DAILY pain 10/22/23
lisinopril 5 mg tablet 5 mg PO DAILY Blood Pressure 10/22/23
metoprolol succinate 100 mg tablet,extended release 24 hr 100 mg PO DAILY Blood Pressure 10/22/23
pantoprazole 40 mg tablet,delayed release 40 mg PO BID Gastrointestinal Issue 10/22/23
acetaminophen 325 mg tablet 650 mg (2 x 325 mg) PO Q4HWA #20 tabs 11/05/23
bisacodyl 10 mg rectal suppository 10 mg [place] [id number] PRN constipation #0 ea 11/05/23
carbamide peroxide 6.5 % ear drops (Ear Wax Removal Drops) 1 drp otic (ear) BID #15 mL 11/05/23
docusate sodium 100 mg capsule 100 mg PO BID #0 caps 11/05/23
gabapentin 300 mg capsule 300 mg PO TID #0 caps 11/05/23
melatonin 5 mg tablet 5 mg PO HS #0 tabs 11/05/23
polyethylene glycol 3350 17 gram oral powder packet (HealthyLax) 17 g PO DAILYPRN PRN constipation #0 ea 11/05/23
sennosides 8.6 mg tablet (Senna Laxative) 17.2 mg (2 x 8.6 mg) PO BID #0 tabs 11/05/23
tamsulosin 0.4 mg capsule 0.4 mg PO DAILYPRN PRN bladder scan volume > 400 mL #0 caps 11/05/23
tramadol 50 mg tablet 50 mg PO Q6H PRN moderate pain #10 tabs 11/05/23
Home Medication Changes
acetaminophen 325 mg tablet 650 mg (2 x 325 mg) PO Q4HWA #20 tabs 11/05/23
bisacodyl 10 mg rectal suppository 10 mg [place] [id number] PRN constipation #0 ea 11/05/23
carbamide peroxide 6.5 % ear drops (Ear Wax Removal Drops) 1 drp otic (ear) BID #15 mL 11/05/23
docusate sodium 100 mg capsule 100 mg PO BID #0 caps 11/05/23
gabapentin 300 mg capsule 300 mg PO TID #0 caps 11/05/23
melatonin 5 mg tablet 5 mg PO HS #0 tabs 11/05/23
polyethylene glycol 3350 17 gram oral powder packet (HealthyLax) 17 g PO DAILYPRN PRN constipation #0 ea 11/05/23
sennosides 8.6 mg tablet (Senna Laxative) 17.2 mg (2 x 8.6 mg) PO BID #0 tabs 11/05/23
tamsulosin 0.4 mg capsule 0.4 mg PO DAILYPRN PRN bladder scan volume > 400 mL #0 caps 11/05/23
tramadol 50 mg tablet 50 mg PO Q6H PRN moderate pain #10 tabs 11/05/23
Pending Results: No
--- NOTE | 2023-11-05 12:50 | CM ---
Addendum entered by Carmita To 11/05/23 13:15:
REPORT DETAILS:
Patient will be admitted to the 4th floor at [facility].
Phone number for report: [phone]

Both transportation sheets were filled out and placed on patient's chart.
Original Note:
CM reviewed chart. CM introduced self and role. also in room. CM shared that an insurance authorization for [facility] was approved.
CM reviewed IMM with patient and . They verbalized understanding. Ellen stated that she wasn't able to sign it, but she did initial it. Copy given to patient. Original placed on patient's chart.
Nicole from [facility] asked that transportation be set up for after 2PM today.
INSURANCE AUTHORIZATION INFO:
Auth # [id number] 11/05/23 - 11/17/23. KARMA 11/17 fax to [phone] [facility] PH: [phone].
[2023-11-05 15:15] VITALS: BP 111/76
== END 2023-11-05 18:24 | DRG 480 ==
LOC: 2 SOUTH 05:39
PROVIDERS: Hospitalist; Nurse Practitioner Gerontology; ADMITTING PHYSICIAN Internal Medicine; ATTENDING PHYSICIAN Internal Medicine; CONSULT PHYSICIAN Orthopaedic Surgery Hand Surgery; EMERGENCY PHYSICIAN Student in an Organized Health Care Education/Training Program; FAMILY PHYSICIAN Internal Medicine
PROC: 0QS606Z Reposition Right Upper Femur with Intramedullary Internal Fixation Device, Open Approach (ICD-10-PCS; 2023-10-22)
PROC: 30233N1 Transfusion of Nonautologous Red Blood Cells into Peripheral Vein, Percutaneous Approach (ICD-10-PCS; 2023-10-25)
DX: S72.141A Displaced intertrochanteric fracture of right femur, initial encounter for closed fracture (principal); G93.41 Metabolic encephalopathy; D62 Acute posthemorrhagic anemia; N17.9 Acute kidney failure, unspecified; F05 Delirium due to known physiological condition; S72.21XA Displaced subtrochanteric fracture of right femur, initial encounter for closed fracture; E87.6 Hypokalemia; E78.00 Pure hypercholesterolemia, unspecified; I10 Essential (primary) hypertension; I25.10 Atherosclerotic heart disease of native coronary artery without angina pectoris; K22.2 Esophageal obstruction; M48.00 Spinal stenosis, site unspecified; I48.0 Paroxysmal atrial fibrillation; K44.9 Diaphragmatic hernia without obstruction or gangrene; W01.0XXA Fall on same level from slipping, tripping and stumbling without subsequent striking against object, initial encounter; Y93.F9 Activity, other caregiving; Y92.002 Bathroom of unspecified non-institutional (private) residence as the place of occurrence of the external cause; Z98.1 Arthrodesis status; Z79.01 Long term (current) use of anticoagulants; Z88.5 Allergy status to narcotic agent; Z88.8 Allergy status to other drugs, medicaments and biological substances; Z87.11 Personal history of peptic ulcer disease; Z87.19 Personal history of other diseases of the digestive system; Z75.1 Person awaiting admission to adequate facility elsewhere
CPT/HCPCS: 70450; 73502; 73552; 76000; 80048; 80053; 81003; 81015; 82805; 83735; 85025; 85027; 85610; 86850; 86900; 86901; 86920; 87070; 87086; 93005; 96374; 96375; 97110; 97116; 97163; 97167; 97530; 97535; 99285; C1713; P9016

== ENCOUNTER → 2023-11-11 12:31 | Outpatient (REF) | payer OTHER, SELFPAY ==
[2023-11-11 14:40] LABS: % Basophils 0.5 % (0-2); % Immature Granulocytes 0.2 % (0-0.5); % Lymphocytes 38.5 % (20.5-51.1); % Monocytes 10.3 % (1.7-9.3); % Neutrophils 47.5 % (42.2-75.2); Absolute Eosinophils 0.1 10^3/uL (0-0.7); Absolute Lymphocytes 1.7 10^3/uL (1.2-3.4); Absolute Monocytes 0.5 10^3/uL (0.1-0.6); Absolute Neutrophils 2.1 10^3/uL (1.4-6.5); Hematocrit 30.2 % (37.0-47.0); Hemoglobin 9.8 g/dL (12.0-16.0); Mean Corp Hgb Conc. 32.5 g/dL (33.0-37.0); Mean Corpuscular Volume 98.7 fL (81.0-99.0); Mean Platelet Volume 10.3 fL (7.4-10.4); Nucleated Red Blood Cells % 0 %; Platelet Count 349 10^3/uL (130-400); Red Blood Cell Count 3.06 10^6/uL (4.20-5.40); Red Cell Dist. Width 16.3 % (11.5-14.5); White Blood Cell Count 4.4 10^3/uL (4.8-10.8)
[2023-11-11 14:58] LABS: Blood Urea Nitrogen 8 mg/dl (7-17); Calcium 8.7 mg/dl (8.4-10.2); Carbon Dioxide 27 mmol/L (22-30); Chloride 105 mmol/L (98-107); Glucose 82 mg/dl (70-99); Potassium 3.6 mmol/L (3.5-5.1); Sodium 137 mmol/L (135-145); eGFR > 60.00
== END ==
LOC: OLABP 12:31
PROVIDERS: ATTENDING PHYSICIAN Family Medicine
DX: D62 Acute posthemorrhagic anemia (principal); N17.9 Acute kidney failure, unspecified; I48.0 Paroxysmal atrial fibrillation; I11.9 Hypertensive heart disease without heart failure; I25.10 Atherosclerotic heart disease of native coronary artery without angina pectoris; M48.00 Spinal stenosis, site unspecified; K44.9 Diaphragmatic hernia without obstruction or gangrene
CPT/HCPCS: 80048; 85025

== ENCOUNTER 2023-12-15 17:38 | Emergency (ER) | payer OTHER, SELFPAY ==
[2023-12-15 17:40] VITALS: BP 179/103
[2023-12-15 18:15] LABS: % Basophils 0.3 % (0-2); % Eosinophils 0.9 % (0-6); % Immature Granulocytes 0.1 % (0-0.5); % Lymphocytes 24.1 % (20.5-51.1); % Neutrophils 65.6 % (42.2-75.2); Absolute Eosinophils 0.1 10^3/uL (0-0.7); Absolute Lymphocytes 1.9 10^3/uL (1.2-3.4); Absolute Monocytes 0.7 10^3/uL (0.1-0.6); Absolute Neutrophils 5.2 10^3/uL (1.4-6.5); Hematocrit 37.9 % (37.0-47.0); Hemoglobin 12.7 g/dL (12.0-16.0); Mean Corp Hgb Conc. 33.5 g/dL (33.0-37.0); Mean Corpuscular Hgb 31.8 pg (27.0-31.0); Mean Platelet Volume 9.9 fL (7.4-10.4); Nucleated Red Blood Cells % 0 %; Platelet Count 278 10^3/uL (130-400); Red Blood Cell Count 3.99 10^6/uL (4.20-5.40); Red Cell Dist. Width 13.1 % (11.5-14.5); White Blood Cell Count 7.9 10^3/uL (4.8-10.8)
[2023-12-15 18:27] LABS: INR 1.17; PT 14.7 Sec (11.4-14.6)
[2023-12-15 18:28] LABS: APTT 37.9 Sec (23.4-35.0)
[2023-12-15 18:45] LABS: ALT (SGPT) 15 U/L (0-35); AST (SGOT) 26 U/L (14-36); Albumin 4.2 g/dl (3.5-5.0); Alkaline Phosphatase 137 U/L (38-126); Blood Urea Nitrogen 9 mg/dl (7-17); Calcium 9.6 mg/dl (8.4-10.2); Carbon Dioxide 33 mmol/L (22-30); Chloride 99 mmol/L (98-107); Glucose 95 mg/dl (70-99); Potassium 4.6 mmol/L (3.5-5.1); Sodium 141 mmol/L (135-145); Total Bilirubin 0.6 mg/dl (0.2-1.3); Total Protein 6.8 g/dl (6.3-8.2); eGFR > 60.00
[2023-12-15 19:12] VITALS: BP 184/95
--- NOTE | 2023-12-15 20:36 | ED.GENMED ---
History of Present Illness
General
Chief Complaint: Vaginal Bleeding
Time Seen by Provider: 12/15/23 20:36
History of Present Illness
History of Present Illness:
HPI: Patient presents due to bleeding concerns and is on Eliquis. She was unsure if the bleeding was coming from vaginally or rectally. She was more certain that she had something coming vaginally as she felt something and she noted something when
she wiped the vaginal area. She denies any pain.
EXAM:
GENERAL: The patient appears somewhat weak and debilitated
HEENT: Moist oral mucosa
CARDIOVASCULAR: No murmurs, normal heart rate, regular rhythm, No chest wall tenderness
PULMONARY: No respiratory distress, breath sounds are clear and equal
: Normal external genitalia, I performed several bimanual examinations with female nurse in the room�I feel no masses, there is no gross bleeding
ABDOMEN: Soft with no peritoneal signs, no tenderness, there is no gross blood on digital rectal examination
NEUROLOGIC: Excellent strength all extremities, no coordination deficits
PSYCHIATRIC: Appropriate mental status, normal insight and judgement
EXTREMITIES: Decreased active range of motion at the right lower extremity due to recent surgical pain
SKIN: No rash, no lesions
TIME OF INITIAL ENCOUNTER: 8 PM
NUMBER AND COMPLEXITY OF PROBLEMS ADDRESSED AT THE ENCOUNTER
� Chronic conditions affecting care: High blood pressure, hyperlipidemia, on home oxygen, anxiety/depression
� Acute Exacerbation and/or Progression of Chronic Illness: This is an acute problem
� Differential Diagnosis includes: Rectal bleeding, uterine bleeding, anemia
AMOUNT AND/OR COMPLEXITY OF DATA TO BE REVIEWED AND ANALYZED
� I performed an independent evaluation of and my interpretation is:
EKG:
CT:
X-rays:
Laboratory Studies: White count normal, hemoglobin 12.7, chemistries unremarkable
Other:
� Review of other/old records: I reviewed records�the patient was here in October with a hip fracture
� Clinical information was obtained by an independent historian: I spoke to at bedside
� Prescriptions/Medications Considered but not given:
� Further testing considered but not performed: Considered ultrasound however bimanual examination is unremarkable and there is no bleeding and hemoglobin is improved
RISK OF COMPLICATIONS AND/OR MORBIDITY OR MORTALITY OF PATIENT MANAGEMENT
� Social determinants of health affecting care: The patient lives at home with
� Discussion with other providers:
� Escalation of care including admission/observation vs risk of discharge considered: The patient was concerned that she has bleeding from either vaginal or rectally. I performed multiple examinations with female nurse in the
room and I saw no blood on any occasion. Her hemoglobin has improved compared to prior.
Past History
Past History
ED Past Medical History: HTN and Hypercholesterolemia; Negative CAD or NIDDM
ED Past Surgical History: Orthopedic (cerv fusion) and Other (Probable umbilical hernia as a child); Negative Cardiac
Social History
Tobacco: Non-smoker
Alcohol: None
Drug: None
Personal:
Living: with family
Employment: Retired
Family History
Family History: Other (Noncontributory)
Phy Exam
Physical Exam
Physical Exam:
See HPI
Course
Orders/Labs/Results
Orders:
Orders
12/15/23 17:44
EKG [Electrocardiogram (*1)] Stat
Reason for Study: Fatigue / Weakness
Other Reason for Exam: bleeding
EKG- Treatment ONCE
12/15/23 18:08
Type+Screen Urgent
Complete Blood Count/With Diff Urgent
Comprehensive Metabolic Panel Urgent
PTT Urgent
Prothrombin Time Urgent
Abnormal Lab Results
12/15/23
18:08
RBC 3.99 L 10^6/uL
(4.20-5.40)
MCH 31.8 H pg
(27.0-31.0)
Absolute Monos (auto) 0.7 H 10^3/uL
(0.1-0.6)
PT 14.7 H Sec
(11.4-14.6)
APTT 37.9 H Sec
(23.4-35.0)
Carbon Dioxide 33 H mmol/L
(22-30)
Alkaline Phosphatase 137 H U/L
(38-126)
12/15/23 18:08
12/15/23 18:08
Vital Signs
Initial and Last Documented VS:
Initial Vital Signs
Temp Pulse Resp BP Pulse Ox
98.6 F 88 16 179/103 99
12/15/23 17:40 12/15/23 17:40 12/15/23 17:40 12/15/23 17:40 12/15/23 17:40
Last Documented Vital Signs
Temp Pulse Resp BP Pulse Ox
98.6 F 83 20 150/73 93
12/15/23 17:40 12/15/23 19:12 12/15/23 19:12 12/15/23 20:56 12/15/23 20:46
*Critical Care Note
Total Time (30-74mins, 75-104mins- exclusive of procedures): Not Applicable
ED Attending Note
-
Portions of this chart may have been created with voice recognition software.� Occasional wrong word or��sound alike� substitutions may have occurred due to the inherent limitations of voice recognition software.
Discharge Plan
Departure
Patient Disposition: Home (Routine Discharge)
Date of Disposition: 12/15/23
Time of Disposition: 21:12
Patient with high blood pressure during this ER visit?: Yes
Discharge Problem:
Bleeding
Prescriptions:
No Action
simvastatin 20 MG tablet
20 mg PO HS
Caltrate 600 plus D 1 EACH tablet,chewable
1 ea PO DAILY
multivitamin Tablet
1 tab PO DAILY
cyanocobalamin (vitamin B-12) [Vitamin B-12] 1,000 mcg Tablet
1,000 mcg PO DAILY
cholecalciferol (vitamin D3) [Vitamin D3] 50 mcg (2,000 unit) Tablet
50 mcg PO DAILY
Eliquis 5 mg Tablet
5 mg PO BID 30 Days Qty: 60 0RF
lidocaine 4 % adhesive patch,medicated
1 patch topical DAILY
metoprolol succinate 100 mg tablet extended release 24 hr
100 mg PO DAILY
pantoprazole 40 mg tablet,delayed release (DR/EC)
40 mg PO BID
lisinopril 5 mg tablet
5 mg PO DAILY
Ear Wax Removal Drops 6.5 % Drops
1 drp otic (ear) BID Qty: 15 0RF
docusate sodium 100 mg Capsule
100 mg PO BID Qty: 0 0RF
bisacodyl 10 mg Suppository
10 mg WI [id number] PRN (Reason: constipation) Qty: 0 0RF
tamsulosin 0.4 mg Capsule
0.4 mg PO DAILYPRN PRN (Reason: bladder scan volume > 400 mL) Qty: 0 0RF
melatonin 5 mg Tablet
5 mg PO HS Qty: 0 0RF
polyethylene glycol 3350 [HealthyLax] 17 gram Powder In Packet
17 g PO DAILYPRN PRN (Reason: constipation) Qty: 0 0RF
sennosides [Senna Laxative] 8.6 mg Tablet
17.2 mg PO BID Qty: 0 0RF
gabapentin 300 mg Capsule
300 mg PO TID Qty: 0 0RF
acetaminophen 325 mg Tablet
650 mg PO Q4HWA Qty: 20 0RF
tramadol 50 MG tablet
50 mg PO Q6H PRN (Reason: moderate pain) Qty: 10 0RF
Referrals:
NONE,* [Family Provider] -
Activity Restrictions/Additional Instructions:
The cause of your symptoms is unclear. Your hemoglobin was checked and is actually much improved compared to prior. Your hemoglobin now is normal at 12.7. Other basic blood work is normal. I performed multiple bimanual vaginal examinations all
of which were unremarkable. I also performed a digital rectal examination�no blood was seen. Follow-up with your doctors.
Interventions
Interventions:
*Risk Screen - Suicide Last Done: 12/15/23 20:58
*General Assessment Last Done: 12/15/23 20:58
*Neglect/Abuse Screening Last Done: 12/15/23 20:58
ED- Fall Risk Assessment Last Done: 12/15/23 21:23
*ED COVID-19 Vaccine History Last Done: 12/15/23 20:58
*Nursing Disposition Last Done: 12/15/23 21:23
ED-Female Genitourinary Assessment Last Done: 12/15/23 20:56
Discharge Date and Time
Discharge Date/Time: 12/15/23 21:23
Print Language: BHUTANESE
[2023-12-15 20:56] VITALS: BP 150/73
[2023-12-15 20:58] VITALS: BMI 25.7
== END 2023-12-15 21:23 | disposition home or self-care (01) ==
LOC: EMR 17:38
PROVIDERS: EMERGENCY PHYSICIAN Emergency Medicine
DX: R58 Hemorrhage, not elsewhere classified (principal); E78.00 Pure hypercholesterolemia, unspecified; I10 Essential (primary) hypertension; Z79.01 Long term (current) use of anticoagulants
CPT/HCPCS: 99284; 80053; 85025; 85610; 85730; 86850; 86900; 86901; 93005

== ENCOUNTER 2024-01-04 18:08 | Inpatient (IN) | payer OTHER, SELFPAY ==
[2024-01-04] VITALS (9 sets, daily range): BP systolic 119–161; BP diastolic 57–85; BMI 27.0; BMI 27.3
[2024-01-04 14:41] LABS: % Basophils 0.2 % (0-2); % Eosinophils 0.1 % (0-6); % Immature Granulocytes 0.3 % (0-0.5); % Lymphocytes 14.3 % (20.5-51.1); % Monocytes 7.3 % (1.7-9.3); % Neutrophils 77.8 % (42.2-75.2); Absolute Lymphocytes 2.1 10^3/uL (1.2-3.4); Absolute Monocytes 1.1 10^3/uL (0.1-0.6); Absolute Neutrophils 11.4 10^3/uL (1.4-6.5); Hematocrit 39.4 % (37.0-47.0); Hemoglobin 12.7 g/dL (12.0-16.0); Mean Corp Hgb Conc. 32.2 g/dL (33.0-37.0); Mean Corpuscular Hgb 31.7 pg (27.0-31.0); Mean Corpuscular Volume 98.3 fL (81.0-99.0); Mean Platelet Volume 10.8 fL (7.4-10.4); Nucleated Red Blood Cells % 0 %; Platelet Count 211 10^3/uL (130-400); Red Blood Cell Count 4.01 10^6/uL (4.20-5.40); Red Cell Dist. Width 12.4 % (11.5-14.5); White Blood Cell Count 14.6 10^3/uL (4.8-10.8)
[2024-01-04 14:50] LABS: Urine Albumin Trace (Neg - Trace); Urine Bilirubin Negative (Negative); Urine Character Clear (Clear); Urine Color Yellow; Urine Glucose Negative (Negative); Urine Ketone Negative (Negative); Urine Leukocyte 1+ (Negative); Urine Nitrite Positive (Negative); Urine Occult Blood 3+ (Negative); Urine Specific Gravity 1.015 (<1.030); Urine Urobilinogen Negative (Neg - 1+)
[2024-01-04 15:01] LABS: Blood Urea Nitrogen 15 mg/dl (7-17); Calcium 8.9 mg/dl (8.4-10.2); Carbon Dioxide 28 mmol/L (22-30); Chloride 101 mmol/L (98-107); Estimated Creatinine Clearance 48 ml/min; Sodium 138 mmol/L (135-145); eGFR > 60.00
[2024-01-04 15:02] LABS: Glucose 104 mg/dl (70-99)
--- NOTE | 2024-01-04 15:07 | EDRN ---
Pt's says he took her to get a flu vaccine on Saturday. Pt has reportedly not been acting herself since. This morning, says pt was unable to stand and he had hard time getting her out of bed to wheelchair and bathroom. Pt was not
talking. VN came and would not speak with nurse so he was advised to have pt come to ED. Pt unable to provide HPI.
[2024-01-04 15:10] LABS: Urine Bacteria Many (Negative); Urine White Cell 30-40 /HPF (0-5)
--- NOTE | 2024-01-04 15:23 | EDRN ---
Crisis called and said they saw pt and declined full crisis evaluation for pt. Pt sleeping, wakes to voice. Pt said she did not know the person sitting next to her () he attempted multiple times to get her to answer the question but
she kept shaking he head no. Pt knows she is in the hospital and thinks it is 1923. Pt falls back to sleep quickly.
--- NOTE | 2024-01-04 15:31 | EDRN ---
Per Dr Poon, pt does not require a 1:1.
[2024-01-04 16:27] LABS: Lactic Acid 1.2 mmol/L (0.7-2.0)
--- NOTE | 2024-01-04 16:34 | ED.GENMED ---
History of Present Illness
General
Chief Complaint: Weakness
Source: spouse
Exam Limitations: none
Time Seen by Provider: 01/04/24 14:42
Nursing documentation reviewed up to this point in time: agreed with
History of Present Illness
History of Present Illness:
The patient is an 83-year-old female with past medical history of A-fib, hypertension, coronary artery disease, with a recent right hip fracture, who was brought in by her for increased confusion, fatigue, decreased appetite, and generalized
weakness for 1 to 2 days. Patient cannot provide any history. She reports right lower abdominal pain. denies vomiting and diarrhea. denies shortness of breath, cough and rash.
Past History
Past History
ED Past Medical History: Arrthythmia, CAD, HTN and Hypercholesterolemia
ED Past Surgical History: Orthopedic (cerv fusion)
Social History
Tobacco: Non-smoker
Alcohol: None
Drug: None
Personal:
Living: with family
Employment: Retired
Family History
Family History: Other (Noncontributory)
Review of Systems
Review of Systems
Allergies reviewed?: Yes
Other source history: other (Spouse)
All Other Systems: ROS reviewed and negative except as documented in HPI and ROS
Constitutional: Reports fatigue
EENT: Reports no symptoms
Respiratory: Reports no symptoms
Cardiac: Reports no symptoms
ABD/GI: Reports abdominal pain and anorexia
Musculoskeletal: Reports no symptoms
Skin: Reports no symptoms
Neurological: Reports other (Confusion)
Endocrine: Reports no symptoms
Hematologic/Lymphatic: Reports no symptoms
Psychiatric: Reports no symptoms
Phy Exam
Physical Exam
Physical Exam:
Physical Exam
General: no apparent distress, not acutely ill, flat affect
Neck: supple. no meningeal signs. normal psoterior pharynx
Heart: s1/s2 regular rate and rhythm, no murmur. equal radial pulses.
Lungs: no acute respiratory distress. clear bilaterally
Abdomen: Soft, right lower quadrant tenderness, no rebound or guarding. No pulsatile mass.
Neuro: alert and oriented to self only. no focal neurological deficits
Skin: no rash
Psychiatric: well kept. interactive and cooperative
Extremities: no edema. Patient has pain in right hip when I flex right hip but postoperative incision appears not erythematous and there is no drainage.
Course
Orders/Labs/Results
Orders:
Orders
01/04/24 14:28
1:1 Observation - Suicide/ Violent Behavior As Directed
Crisis Consult Urgent
Reason for Consult: suicidal
01/04/24 14:34
Straight cath- Treatment ONCE
01/04/24 14:35
Basic Metabolic Panel Urgent
Complete Blood Count/With Diff Urgent
Urinalysis Reflex To Culture Urgent
Date Specimen was Collected: 01/04/24
Time Specimen was Collected: 14:34
Urine Microscopic Reflex Cult Urgent
Urine Culture Urgent
TANA Source: U
Specimen Description:
Date Specimen was Collected: 01/04/24
Time Specimen was Collected: 14:34
01/04/24 15:32
CT Abd/pelvis W Iv Cont Urgent
Comment:
Reason For Exam: RLQ pain, confusion
CT Head W/o Iv Contrast Urgent
Comment:
Reason For Exam: confusion
01/04/24 15:51
Lactic Acid Urgent
01/04/24 16:49
Electrocardiogram (*1) Urgent
Reason for Study: Fatigue / Weakness
EKG- Treatment ONCE
01/04/24 16:51
0.9% Sodium Chloride 1000 ml [Nss] 1,000 ml IV BOLUS
01/04/24 17:24
CefTRIAXone [Rocephin] 1,000 mg IV NOW STA
Abnormal Lab Results
01/04/24
14:35
WBC 14.6 H 10^3/uL
(4.8-10.8)
RBC 4.01 L 10^6/uL
(4.20-5.40)
MCH 31.7 H pg
(27.0-31.0)
MCHC 32.2 L g/dL
(33.0-37.0)
MPV 10.8 H fL
(7.4-10.4)
Absolute Neuts (auto) 11.4 H 10^3/uL
(1.4-6.5)
Absolute Monos (auto) 1.1 H 10^3/uL
(0.1-0.6)
Neutrophils % 77.8 H %
(42.2-75.2)
Lymphocytes % 14.3 L %
(20.5-51.1)
Glucose 104 H mg/dl
(70-99)
Ur Occult Blood Reflex 3+ A
(Negative)
Urine Nitrite (Reflex) Positive A
(Negative)
Leukocyte Esterase Rfl 1+ A
(Negative)
Urine RBC 3-6 A /HPF
(0-2)
Urine WBC (Reflex) 30-40 A /HPF
(0-5)
Urine Bacteria (Reflex) Many A
(Negative)
01/04/24 14:35
01/04/24 14:35
Vital Signs
Initial and Last Documented VS:
Initial Vital Signs
Temp Pulse Resp BP Pulse Ox
99.1 F 83 14 150/78 95
01/04/24 14:16 01/04/24 14:16 01/04/24 14:16 01/04/24 14:16 01/04/24 14:16
Last Documented Vital Signs
Temp Pulse Resp BP Pulse Ox
98.4 F 83 21 151/81 93
01/04/24 15:20 01/04/24 17:00 01/04/24 17:00 01/04/24 17:00 01/04/24 16:00
MDM/Problems Addressed
Differential Diagnosis Includes:
Intracranial hemorrhage, dehydration, UTI
MDM/Problems Addressed:
Patient presents with increased generalized weakness and confusion
Chronic conditions affecting care:
Given patient has a history of A-fib and is on blood thinners, she is at increased risk of intracranial hemorrhage
Chronic conditions affecting care: Arrhythmia
Acute Exacerbation and/or Progression of Chronic Illness:
Patient is acutely hypertensive
Acute Exacerbation and/or Progression of Chronic Illness: HTN
*Pulse Oximetry
Patient hypoxic: no
*EKG
Interpreted by ED Provider?: Yes
Interpretation: normal
Comparison EKG: no changes
Rate: normal
Rhythm: sinus
Early Branch: normal axis
Interval: normal interval
QRS Pattern: normal QRS
Ischemia: no ischemia
*Beadworker Interpretation
Rate: normal
Interpretation: normal
Rhythm: sinus
*Critical Care Note
Total Time (30-74mins, 75-104mins- exclusive of procedures): Not Applicable
Data Reviewed
Review of Other/Old Records Reveals: Discharge Summary (Discharge summary reviewed from 11/06/2023 when patient was noted to have metabolic encephalopathy likely due to postoperative delirium and gabapentin)
Source: patient and spouse
Patient Management
Social determinants of health affecting care: Living situation and Strong social support
Discussion with other providers: Hospitalist
ED Attending Note
-
Portions of this chart may have been created with voice recognition software.� Occasional wrong word or��sound alike� substitutions may have occurred due to the inherent limitations of voice recognition software.
Discharge Plan
Departure
Patient Disposition: Admit
Date of Disposition: 01/04/24
Time of Disposition: 17:24
Admit to: Med/Surg
Presentation/result/management discussed w/ accepting MD/DO: Hospitalist
Patient with high blood pressure during this ER visit?: Yes
Condition: Fair
Covid-19: Not Applicable
Discharge Problem:
Acute alteration in mental status, Acute UTI
Prescriptions:
No Action
simvastatin 20 MG tablet
20 mg PO QPM
Caltrate 600 plus D 1 EACH tablet,chewable
1 ea PO DAILY
cyanocobalamin (vitamin B-12) [Vitamin B-12] 1,000 mcg Tablet
1,000 mcg PO DAILY
cholecalciferol (vitamin D3) [Vitamin D3] 50 mcg (2,000 unit) Tablet
50 mcg PO DAILY
Eliquis 5 mg Tablet
5 mg PO BID 30 Days Qty: 60 0RF
lidocaine 4 % adhesive patch,medicated
1 patch topical DAILY
metoprolol succinate 100 mg tablet extended release 24 hr
100 mg PO NOON
pantoprazole 40 mg tablet,delayed release (DR/EC)
40 mg PO DAILY
lisinopril 5 mg tablet
5 mg PO DAILY
docusate sodium 100 mg Capsule
100 mg PO BID Qty: 0 0RF
melatonin 5 mg Tablet
5 mg PO HS Qty: 0 0RF
gabapentin 300 mg Capsule
300 mg PO TID Qty: 0 0RF
trazodone 50 mg Tablet
50 mg PO HS
Theragen Tablet
1 tab PO DAILY
acetaminophen [Tylenol Arthritis Pain] 650 mg Tablet Extended Release
650 mg PO BID
sennosides [Senna Laxative] 8.6 mg tablet
8.6 mg PO BID
tramadol 50 MG tablet
50 mg PO Q6HPRN PRN (Reason: moderate pain)
tamsulosin 0.4 mg capsule
0.4 mg PO HS
Referrals:
Stepan Leon MD [Family Provider] -
Interventions
Interventions:
*Risk Screen - Suicide Last Done: 01/04/24 14:16
*General Assessment Last Done: 01/04/24 14:16
*Neglect/Abuse Screening Last Done: 01/04/24 14:16
ED- Fall Risk Assessment Last Done: 01/04/24 15:13
*ED COVID-19 Vaccine History Last Done: 01/04/24 14:16
ED- Cardiac Assessment Last Done: 01/04/24 15:21
ED- Neurological Assessment Last Done: 01/04/24 15:21
ED- Pulmonary Assessment Last Done: 01/04/24 15:21
Discharge Date and Time
Print Language: MEXICAN
[2024-01-04] MEDS: NSS 1000 IV ×2 (16:54→21:17)
[2024-01-04] MEDS: ROCEPHIN 1000 MG IV (17:55)
--- NOTE | 2024-01-04 18:12 | HPS.HSE ---
Family Physician
-
Family Physician: Stepan Leon
Chief Complaint
-
Weakness, Gait Dysfunction
History of Present Illness
Patient is an 83y F with PMH significant for ASCVD, A-Fib and R hip fracture s/p ORIF (October 2023) who presents to ED for evaluation of weakness and gait dysfunction. History obtained primarily from the at the bedside. states
that patient was more unsteady and weak yesterday. Today she was completely unable to get up / stand even with assistance. She had no specific complaints at home of urinary symptoms, pain, etc. Here in the ED, patient appears uncomfortable. She
complains of pain fairly diffusely and indicates her abdomen, her legs and her LUE IV site.
Evaluation here in the ED includes UA suggestive of infection and CT imaging suggestive of bilateral pyelonephritis.
Medical History
Past Medical History
Past Medical History: Reports Other
Additional Past Medical History:
Paroxysmal Atrial Fibrillation
ASCVD
Hypertension
Valvular Heart Disease
Anxiety / Depression
GERD / Duodenal Ulcer
Spinal Stenosis
Past Surgical History: Reports Other
Additional Past Surgical History:
Right Hip ORIF
Cervical Fusion
Hemorrhoidectomy
Social History
Tobacco: Non-smoker
Alcohol: None
Drug: None
Family History
Family History: Not pertinent
Allergies / Home Medications
Allergies reflects when Allergies were last updated in [employer].
Home Medications with original date entered in [facility]
Allergy/Medication List:
Allergies
Allergy/AdvReac Type Severity Reaction Status Date / Time
duloxetine HCl Allergy DIZZY Verified 12/15/23 17:40
[From Cymbalta]
oxycodone Allergy dizzy Verified 12/15/23 17:40
Home Medications
simvastatin 20 mg tablet 20 mg PO QPM High Cholesterol 01/01/14
calcium 600 mg (as carbonate)-vit D3 20 mcg (800 unit) chewable tablet (Caltrate plus D) 1 ea PO DAILY Supplement 01/11/15
cholecalciferol (vitamin D3) 50 mcg (2,000 unit) tablet (Vitamin D3) 50 mcg PO DAILY Supplement 01/04/23
cyanocobalamin (vitamin B-12) 1,000 mcg tablet (Vitamin B-12) 1,000 mcg PO DAILY Supplement 01/04/23
apixaban 5 mg tablet (Eliquis) 5 mg PO BID 30 days #60 tabs 01/07/23
lidocaine 4 % topical patch 1 patch topical DAILY pain 10/22/23
lisinopril 5 mg tablet 5 mg PO DAILY Blood Pressure 10/22/23
metoprolol succinate 100 mg tablet,extended release 24 hr 100 mg PO NOON Blood Pressure 10/22/23
pantoprazole 40 mg tablet,delayed release 40 mg PO DAILY Gastrointestinal Issue 10/22/23
docusate sodium 100 mg capsule 100 mg PO BID #0 caps 11/05/23
gabapentin 300 mg capsule 300 mg PO TID #0 caps 11/05/23
melatonin 5 mg tablet 5 mg PO HS #0 tabs 11/05/23
acetaminophen 650 mg tablet,extended release (Tylenol Arthritis Pain) 650 mg PO BID 01/04/24
sennosides 8.6 mg tablet (Senna Laxative) 8.6 mg PO BID 01/04/24
tamsulosin 0.4 mg capsule 0.4 mg PO HS 01/04/24
therapeutic multivitamin 1 tab PO DAILY 01/04/24
tramadol 50 mg tablet 50 mg PO Q6HPRN PRN moderate pain 01/04/24
trazodone 50 mg tablet 50 mg PO HS 01/04/24
Review of Systems
-
History Source: Patient and Family
A 12 point ROS was completed and negative except as noted: Yes
Constitutional: Reports Fatigue; Denies Fever or Chills
EENT: Denies Sore Throat
Respiratory: Denies Cough or Trouble Breathing
Cardiac: Denies Chest Pain or Palpitations
Abdomen/GI: Reports Abdominal Pain; Denies Nausea, Vomiting, Diarrhea or Constipated
: Denies Dysuria, Frequency or Flank Pain
Musculoskeletal: Denies Joint Pain or Edema
Neurological: Denies Dizzy or Headache
Psych: Reports Anxiety
Physical Exam
Vital Signs
Vital Signs
Temp Pulse Resp BP Pulse Ox
98.4 F 83 21 151/81 93
01/04/24 15:20 01/04/24 17:00 01/04/24 17:00 01/04/24 17:00 01/04/24 16:00
Physical Exam
General: Other (83y F in mild distress due to pain / anxiety.)
HEENT: Moist mucous membranes and PERRLA
Respiratory: Clear; No Wheezes, Rales or Rhonchi
Cardiac: S1/S2 and Regular Rhythm; No Murmur
GI: Soft, Non Distended, Normal Bowel Sounds and Other (Mild lower abdominal / suprapubic tenderness.)
Genito-urinary: No costovertebral tender
Musculoskeletal: No Clubbing, No Cyanosis and No Edema
Neuro: Awake, Alert and Oriented
Psych: Anxious
Laboratory Results
-
01/04/24 14:35
01/04/24 14:35
Laboratory Results
Lactic Acid 1.2 mmol/L (0.7-2.0) 01/04/24 15:51
Total Bilirubin Cancelled 01/04/24 14:35
AST Cancelled 01/04/24 14:35
ALT Cancelled 01/04/24 14:35
Alkaline Phosphatase Cancelled 01/04/24 14:35
Impression/Plan
-
A/P: Patient is an 83y F with PMH significant for HTN, A-Fib and recent right hip ORIF who presents to ED complaining of weakness / gait dysfunction.
Bilateral Pyelonephritis
- Admit for further evaluation and treatment.
- IV abx pending culture data and adjust as needed.
- Supportive care including IVFs, antipyretics, pain control, etc.
- Follow for clinical improvement.
- Bladder scan protocol and straight cath / [facility] of evidence of urinary retention.
s/p Right Hip ORIF
- October 2023. Limited mobility post-op according to her son via phone.
- PT / OT evaluations during stay to increase mobility.
Paroxysmal Atrial Fibrillation
- Stable. Continue current med regimen including Eliquis for stroke risk reduction.
ASCVD
Benign Hypertension
Valvular Heart Disease
- Stable. Continue current CV med regimen.
GERD / Hiatal Hernia
- Stable. Continue daily PPI.
- Monitor for any new symptoms.
Constipation
- Bowel regimen including daily Miralax for now.
- Follow for response.
DVT Prophylaxis: On Eliquis
Code Status: Full
--- NOTE | 2024-01-04 20:27 | EDRN ---
Called pharmacy to verify tylenol order
[2024-01-04] MEDS: TYLENOL 650 MG PO (20:29)
[2024-01-04] MEDS: SENOKOT 8.6 MG PO (21:09)
[2024-01-04] MEDS: COLACE 100 MG PO (21:09)
[2024-01-04] MEDS: ELIQUIS 5 MG PO (21:09)
[2024-01-04] MEDS: FLOMAX 0.4 MG PO (21:10)
[2024-01-04] MEDS: DESYREL 50 MG PO (21:11)
[2024-01-04] MEDS: NEURONTIN 300 MG PO (21:11)
[2024-01-05 03:00] VITALS: BP 125/65
[2024-01-05 07:00] VITALS: BP 168/80
[2024-01-05] MEDS: ZESTRIL 5 MG PO (08:11)
[2024-01-05] MEDS: ELIQUIS 5 MG PO ×2 (08:11→20:13)
[2024-01-05] MEDS: MIRALAX 17 GRAMS PO (08:11)
[2024-01-05] MEDS: NSS 1000 IV ×2 (08:11→16:57)
[2024-01-05] MEDS: COLACE 100 MG PO ×2 (08:11→20:13)
[2024-01-05] MEDS: SENOKOT 8.6 MG PO ×2 (08:11→20:14)
[2024-01-05] MEDS: PROTONIX 40 MG PO (08:11)
[2024-01-05] MEDS: NEURONTIN 300 MG PO ×3 (08:11→22:57)
[2024-01-05] MEDS: TYLENOL 650 MG PO (08:14)
--- NOTE | 2024-01-05 08:15 | W.PN.HOSP.TC ---
Today's Communication/Plan
-
R hip xray
IV abx-await culture data
pain control
bowel regimen
Assessment / Plan
Assessment / Plan
A/P: Patient is an 83y F with PMH significant for HTN, A-Fib and recent right hip ORIF who presents to ED complaining of weakness / gait dysfunction.
Bilateral Pyelonephritis
- IV abx pending culture data and adjust as needed. Prelim wi/Gram negative bacilli.
- Supportive care including IVFs, antipyretics, pain control, etc.
- Follow for clinical improvement.
- Bladder scan protocol and straight cath / [facility] of evidence of urinary retention.
s/p Right Hip ORIF
- October 2023. Check R hip xray.
- PT / OT evaluations during stay to increase mobility.
Paroxysmal Atrial Fibrillation
- Stable. Continue current med regimen including Eliquis for stroke risk reduction.
ASCVD
Benign Hypertension
Valvular Heart Disease
- Stable. Continue current CV med regimen.
GERD / Hiatal Hernia
- Stable. Continue daily PPI.
- Monitor for any new symptoms.
Constipation
- Bowel regimen including daily Miralax for now.
- Follow for response.
DVT Prophylaxis: On Eliquis
Code Status: Full
Anticipated Discharge: > 48 hours
Subjective/Interval History
-
Date of Service: January 05, 2024
states of severe back and R hip pain
Objective Data
-
Labs:
Laboratory Results
01/05/24
06:00
WBC Pending
Hgb Pending
Hct Pending
Plt Count Pending
Sodium Pending
Potassium Pending
Chloride Pending
Carbon Dioxide Pending
BUN Pending
Creatinine Pending
Glucose Pending
Calcium Pending
Vital Signs:
Vital Signs
Temp Pulse Resp BP Pulse Ox
98 F 71 16 125/65 95
01/05/24 03:00 01/05/24 03:00 01/05/24 03:00 01/05/24 03:00 01/05/24 03:00
Physical Exam
-
General: Well Developed, Well Nourished, No Apparent Distress and Pain
HEENT: Normocephalic, Atraumatic and PERRLA
Respiratory: Clear to Auscultation; Negative Wheezes
Cardiac: S1/S2
GI: Soft, Nontender and Nondistended
Musculoskeletal: No Edema
Skin: Warm and Dry; Negative Rash
Neuro: Awake
Psych: Calm
Data Reviewed
-
Total Time Spent with Patient (in minutes): 51
[2024-01-05] MEDS: ULTRAM 50 MG PO ×2 (09:29→17:20)
[2024-01-05 10:24] LABS: Hematocrit 34.6 % (37.0-47.0); Hemoglobin 11.7 g/dL (12.0-16.0); Mean Corp Hgb Conc. 33.8 g/dL (33.0-37.0); Mean Corpuscular Hgb 32.4 pg (27.0-31.0); Mean Corpuscular Volume 95.8 fL (81.0-99.0); Mean Platelet Volume 10.8 fL (7.4-10.4); Platelet Count 154 10^3/uL (130-400); Red Blood Cell Count 3.61 10^6/uL (4.20-5.40); Red Cell Dist. Width 12.4 % (11.5-14.5); White Blood Cell Count 14.6 10^3/uL (4.8-10.8)
[2024-01-05 11:20] LABS: Blood Urea Nitrogen 11 mg/dl (7-17); Calcium 8.7 mg/dl (8.4-10.2); Carbon Dioxide 26 mmol/L (22-30); Chloride 105 mmol/L (98-107); Estimated Creatinine Clearance 50 ml/min; Glucose 91 mg/dl (70-99); Potassium 3.9 mmol/L (3.5-5.1); Sodium 140 mmol/L (135-145); eGFR > 60.00
[2024-01-05 13:27] VITALS: BP 132/65
[2024-01-05] MEDS: TOPROL XL 100 MG PO (13:28)
[2024-01-05 15:00] VITALS: BP 143/83
--- NOTE | 2024-01-05 15:18 | CM ---
Alert awake oriented patient who lives with her Aris in a one story home with 0 steps to enter.She is assisted in all activities of daily living.She said she has [facility] and wishes to resume.Spoke with Aris also.She uses a walker
and cane.
Has [facility] current / [facility]
Pharmacy [facility]
PCP She said she does not have a PCP but will check with [facility] [place]
PLAN Home with [facility] Liaison VN
[2024-01-05] MEDS: LIPITOR 10 MG PO (16:56)
[2024-01-05] MEDS: ROCEPHIN 1000 MG IV (16:57)
[2024-01-05] MEDS: STERILE WATER FOR INJECTION 10 ML IV (16:57)
[2024-01-05 19:25] VITALS: BP 161/87
[2024-01-05] MEDS: DULCOLAX 10 MG PO (22:57)
[2024-01-05] MEDS: FLOMAX 0.4 MG PO (22:58)
[2024-01-05] MEDS: DESYREL 50 MG PO (22:58)
[2024-01-06] VITALS (9 sets, daily range): BP systolic 138–197; BP diastolic 68–101; PULSE 82–105; BMI 28.6
[2024-01-06] MEDS: NSS 1000 IV ×2 (03:56→13:07)
--- NOTE | 2024-01-06 06:50 | W.PN.HOSP.TC ---
Today's Communication/Plan
-
cont abx
PT/OT
follow cultures
Assessment / Plan
Assessment / Plan
Physical Exam
General: Well Developed, Well Nourished, No Apparent Distress and Pain
HEENT: Normocephalic, Atraumatic and PERRLA
Respiratory: Clear to Auscultation; Negative Wheezes
Cardiac: S1/S2
GI: Soft, Nontender and Nondistended
Musculoskeletal: No Edema
Skin: Warm and Dry; Negative Rash
Neuro: Awake
Psych: Calm
A/P: Patient is an 83y F with PMH significant for HTN, A-Fib and recent right hip ORIF who presents to ED complaining of weakness / gait dysfunction.
Bilateral Pyelonephritis
- IV abx pending culture data and adjust as needed. Prelim wi/Gram negative bacilli.
- Supportive care including IVFs, antipyretics, pain control, etc.
- Follow for clinical improvement.
- Bladder scan protocol and straight cath / Jefferson of evidence of urinary retention.
s/p Right Hip ORIF October
- R hip xray appreciated no acute abn's
- PT / OT evaluations during stay to increase mobility.
Paroxysmal Atrial Fibrillation
- Stable. Continue current med regimen including Eliquis for stroke risk reduction.
ASCVD
Benign Hypertension
Valvular Heart Disease
- Stable. Continue current CV med regimen.
GERD / Hiatal Hernia
- Stable. Continue daily PPI.
- Monitor for any new symptoms.
Constipation
- Bowel regimen including daily Miralax for now.
- Follow for response.
DVT Prophylaxis: On Eliquis
Code Status: Full
Discussed with patient and patient's Aris
I spent a total of 50 minutes with the patient or on the floor. More than 50% of this time involved counseling and coordination of care.
Anticipated Discharge: 24 - 48 hours
Subjective/Interval History
-
Date of Service: January 06, 2024
Mental status appears improved. AOx3. Reports urinary frequency and frequent loose stools (not noted by nurse/staff). Aris present during evaluation.
Objective Data
-
Vital Signs:
Vital Signs
Temp Pulse Resp BP Pulse Ox
98.3 F 82 16 153/72 95
01/06/24 03:41 01/06/24 03:41 01/06/24 03:41 01/06/24 03:41 01/06/24 03:41
I&O
01/04/24 01/05/24 01/06/24
06:59 06:59 06:59
Intake Total 560 / 560
Output Total 200 / 200
Balance 360 / 360
[2024-01-06] MEDS: NEURONTIN 300 MG PO ×3 (08:49→21:15)
[2024-01-06] MEDS: VITAMIN D3 (cholecalciferol) 50 MCG PO (08:49)
[2024-01-06] MEDS: ELIQUIS 5 MG PO ×2 (08:49→19:50)
[2024-01-06] MEDS: PROTONIX 40 MG PO (08:49)
[2024-01-06] MEDS: ZESTRIL 5 MG PO (08:50)
[2024-01-06] MEDS: VITAMIN B-12 1000 MCG PO (08:51)
[2024-01-06] MEDS: COLACE PO (08:52)
[2024-01-06] MEDS: MIRALAX PO (08:53)
[2024-01-06] MEDS: SENOKOT PO ×2 (08:53→19:51)
[2024-01-06] MEDS: ULTRAM 50 MG PO ×2 (08:59→22:28)
[2024-01-06] MEDS: OSCAL 500 + D 500 MG PO (09:03)
--- NOTE | 2024-01-06 09:06 | VNURNOTE ---
Chart reviewed. Patient is current with [facility] nursing, PT, OT. PCP is Dr Stepan Leon. Will continue to follow hospital course and DC plans.
--- NOTE | 2024-01-06 10:35 | CM ---
Patient seen at bedside, resting. CM will call to patient family to discuss discharge plan.
[2024-01-06] MEDS: TOPROL XL 100 MG PO (12:52)
--- NOTE | 2024-01-06 15:51 | PTCARENOTE ---
patient continent of large BM this am and refused stool medication regimen.appetite fair, sat oob in chair this am after working with therapy. vss, will continue to monitor.
[2024-01-06] MEDS: ROCEPHIN 1000 MG IV (17:30)
[2024-01-06] MEDS: STERILE WATER FOR INJECTION 10 ML IV (17:30)
[2024-01-06] MEDS: LIPITOR 10 MG PO (17:34)
--- NOTE | 2024-01-06 18:42 | PTCARENOTE ---
patient c/o indigestion after dinner. notified Dr. Dalton and electronic orders placed for Maalox(see new order), will continue to monitor.
[2024-01-06] MEDS: COLACE 100 MG PO (19:50)
[2024-01-06] MEDS: MAALOX 30 ML PO (19:51)
[2024-01-06] MEDS: FLOMAX 0.4 MG PO (21:15)
[2024-01-06] MEDS: DULCOLAX 10 MG PO (21:15)
[2024-01-06] MEDS: DESYREL 50 MG PO (21:15)
[2024-01-07] VITALS (7 sets, daily range): BP systolic 149–188; BP diastolic 75–98; PULSE 81; BMI 27.6
--- NOTE | 2024-01-07 07:47 | W.PN.HOSP.TC ---
Addendum entered and electronically signed by Vanessa Blanca MD 01/08/24 08:52:
sepsis (fever leukocytosis tachycardia tachypnea) d/t pyelonephritis poa since resolved
Original Note:
Today's Communication/Plan
-
IV abx transitioned to oral
PT/OT
pain control
Lisinopril increased to 10 mg daily
Assessment / Plan
Assessment / Plan
Physical Exam
General: Well Developed, Well Nourished, No Apparent Distress and Pain
HEENT: Normocephalic, Atraumatic and PERRLA
Respiratory: Clear to Auscultation; Negative Wheezes
Cardiac: S1/S2
GI: Soft, Nontender and Nondistended
Musculoskeletal: No Edema
Skin: Warm and Dry; Negative Rash
Neuro: Awake Alert Coherent Conversant
Psych: Calm
A/P: Patient is an 83y F with PMH significant for HTN, A-Fib and recent right hip ORIF who presents to ED complaining of weakness / gait dysfunction.
Bilateral Pyelonephritis
- urine cx pos for E. coli w/ good sensitivities, Ceftriaxone switched to Augmentin
- Supportive care including IVFs, antipyretics, pain control, etc.
- Follow for clinical improvement.
- Bladder scan protocol and straight cath / Jefferson of evidence of urinary retention.
s/p Right Hip ORIF October
- R hip xray appreciated no acute abn's
- PT / OT evaluations during stay to increase mobility.
Paroxysmal Atrial Fibrillation
- Stable. Continue current med regimen including Eliquis for stroke risk reduction.
ASCVD
Benign Hypertension
Valvular Heart Disease
- BP elevated
- home lisinopril increased to 10 mg daily
GERD / Hiatal Hernia
- Stable. Continue daily PPI.
- Monitor for any new symptoms.
Back pain
-cont prn Tramadol
-Lidocaine patch
Constipation resolved
- Bowel regimen reduced to scheduled senokot
-colace and miralax converted to prn
DVT Prophylaxis: On Eliquis
Code Status: Full
Discussed with patient and patient's Aris
I spent a total of 50 minutes with the patient or on the floor. More than 50% of this time involved counseling and coordination of care.
Anticipated Discharge: 24 - 48 hours
Subjective/Interval History
-
Date of Service: January 07, 2024
Appears symptomatically improved, comfortable at this time. No acute distress.
Objective Data
-
Labs:
Laboratory Results
01/07/24
06:18
WBC Pending
Hgb Pending
Hct Pending
Plt Count Pending
Sodium Pending
Potassium Pending
Chloride Pending
Carbon Dioxide Pending
BUN Pending
Creatinine Pending
Glucose Pending
Calcium Pending
Vital Signs:
Vital Signs
Temp Pulse Resp BP Pulse Ox
98.7 F 80 18 149/82 95
01/07/24 03:18 01/07/24 03:18 01/07/24 03:18 01/07/24 03:18 01/07/24 03:18
I&O
01/06/24 01/07/24 01/08/24
06:59 06:59 06:59
Intake Total 560 / 560 1789
Output Total 200 / 200
Balance 360 / 360 1789
[2024-01-07 07:52] LABS: Hematocrit 29.5 % (37.0-47.0); Mean Corp Hgb Conc. 33.9 g/dL (33.0-37.0); Mean Corpuscular Hgb 31.3 pg (27.0-31.0); Mean Corpuscular Volume 92.5 fL (81.0-99.0); Mean Platelet Volume 11.1 fL (7.4-10.4); Platelet Count 167 10^3/uL (130-400); Red Blood Cell Count 3.19 10^6/uL (4.20-5.40); White Blood Cell Count 7.1 10^3/uL (4.8-10.8)
--- NOTE | 2024-01-07 08:09 | PN.CDI ---
CDI
- -
CDI:
Physician Documentation Request
Admit Date: 01/04/24 18:08
Dear Doctor Rianna,
Please review the following and provide your response in the progress notes.
Clinical Indicators:
- On admission: WBC 14.6, Tmax 103.6, HR 90-100, RR 20s
- 6L IVF given
- IV abx Ceftriaxone
- UC with gram negative bacilli
- 01/05 PN 'Bilateral Pyelonephritis'
- 01/03 ER Physician 'increased confusion, fatigue, decreased appetite, and generalized weakness'
Please clarify which of the following most accurately describes the status of the patient's infection:
Sepsis due to pyelonephritis
Localized Infection Only, Without Systemic Illness, pyelonephritis
Other
Use of terms such as suspected, likely, concern for, or probable (associated with a specific diagnosis that is being evaluated, monitored, or treated as if it exists) are acceptable and can be coded in the inpatient setting, when documented at the
time of discharge.
Thank you,
Destiny Harris RN
CDI Specialist
Please use your independent medical judgment in providing your response.
[2024-01-07] MEDS: COLACE PO (08:14)
[2024-01-07] MEDS: MIRALAX PO (08:14)
[2024-01-07] MEDS: ZESTRIL 5 MG PO ×2 (08:15→14:46)
[2024-01-07] MEDS: OSCAL 500 + D 500 MG PO (08:15)
[2024-01-07] MEDS: PROTONIX 40 MG PO (08:15)
[2024-01-07] MEDS: ELIQUIS 5 MG PO ×2 (08:15→21:19)
[2024-01-07] MEDS: NEURONTIN 300 MG PO ×3 (08:16→21:20)
[2024-01-07] MEDS: SENOKOT PO (08:16)
[2024-01-07] MEDS: VITAMIN D3 (cholecalciferol) 50 MCG PO (08:16)
[2024-01-07] MEDS: VITAMIN B-12 1000 MCG PO (08:16)
[2024-01-07 08:32] LABS: Blood Urea Nitrogen 8 mg/dl (7-17); Calcium 8.5 mg/dl (8.4-10.2); Carbon Dioxide 28 mmol/L (22-30); Chloride 105 mmol/L (98-107); Estimated Creatinine Clearance 50 ml/min; Glucose 83 mg/dl (70-99); Magnesium 1.9 mg/dl (1.6-2.3); Phosphorus 3.2 mg/dl (2.5-4.5); Potassium 3.4 mmol/L (3.5-5.1); Sodium 141 mmol/L (135-145); eGFR > 60.00
--- NOTE | 2024-01-07 11:43 | CM ---
Patient seen at bedside. Patient spoke with CM via phone. Patient enroute to hospital to see patient. CM updated him regarding recommendation of therapy for SNF. Patient is reluctant to have patient go to SNF and would like
to talk to therapy about prior functioning. CM updated therapy and requested discussion with this afternoon. CM will continue to follow for discharge planning needs.
Plan; home with aide and VN vs SNF.
[2024-01-07] MEDS: KCL 40 MEQ PO (13:38)
[2024-01-07] MEDS: VISBIOME 1 CAP PO (13:39)
[2024-01-07] MEDS: AUGMENTIN 875 MG/125 MG 1 TABLET PO ×2 (13:40→21:19)
[2024-01-07] MEDS: TOPROL XL 100 MG PO (13:40)
[2024-01-07] MEDS: ULTRAM 50 MG PO ×2 (16:45→22:48)
[2024-01-07] MEDS: LIDOCAINE 4% PATCH 1 PATCH TOPICAL (17:41)
[2024-01-07] MEDS: LIPITOR 10 MG PO (17:43)
[2024-01-07] MEDS: DESYREL 50 MG PO (21:20)
[2024-01-07] MEDS: SENOKOT 8.6 MG PO (21:20)
[2024-01-07] MEDS: TYLENOL 650 MG PO (21:20)
[2024-01-07] MEDS: FLOMAX 0.4 MG PO (21:20)
[2024-01-08 03:29] VITALS: BP 152/78
[2024-01-08 06:00] VITALS: BMI 27.7
[2024-01-08 06:13] LABS: Hematocrit 31.1 % (37.0-47.0); Hemoglobin 10.6 g/dL (12.0-16.0); Mean Corp Hgb Conc. 34.1 g/dL (33.0-37.0); Mean Platelet Volume 10.6 fL (7.4-10.4); Platelet Count 176 10^3/uL (130-400); Red Blood Cell Count 3.31 10^6/uL (4.20-5.40); Red Cell Dist. Width 11.9 % (11.5-14.5); White Blood Cell Count 5.5 10^3/uL (4.8-10.8)
[2024-01-08 06:35] LABS: Blood Urea Nitrogen 7 mg/dl (7-17); Calcium 8.7 mg/dl (8.4-10.2); Carbon Dioxide 31 mmol/L (22-30); Chloride 103 mmol/L (98-107); Estimated Creatinine Clearance 50 ml/min; Glucose 84 mg/dl (70-99); Magnesium 1.8 mg/dl (1.6-2.3); Phosphorus 3.9 mg/dl (2.5-4.5); Potassium 3.9 mmol/L (3.5-5.1); Sodium 141 mmol/L (135-145); eGFR > 60.00
--- NOTE | 2024-01-08 07:16 | W.PN.HOSP.TC ---
Today's Communication/Plan
-
cont abx
PT/OT
blood pressure control
Discharge planning SNF rehab
Assessment / Plan
Assessment / Plan
Physical Exam
General: Well Developed, Well Nourished, No Apparent Distress and Pain
HEENT: Normocephalic, Atraumatic and PERRLA
Respiratory: Clear to Auscultation; Negative Wheezes
Cardiac: S1/S2
GI: Soft, Nontender and Nondistended
Musculoskeletal: No Edema
Skin: Warm and Dry; Negative Rash
Neuro: Awake Alert Coherent Conversant
Psych: Calm
A/P: Patient is an 83y F with PMH significant for HTN, A-Fib and recent right hip ORIF who presents to ED complaining of weakness / gait dysfunction.
Bilateral Pyelonephritis
- urine cx pos for E. coli w/ good sensitivities, Ceftriaxone switched to Augmentin
- Clinically improved, tolerating abx
s/p Right Hip ORIF October
- R hip xray appreciated no acute abn's
- PT / OT eval appreciated SNF rehab
Paroxysmal Atrial Fibrillation
- Stable. Continue current med regimen including Eliquis for stroke risk reduction.
ASCVD
Benign Hypertension
Valvular Heart Disease
- BP elevated
- home lisinopril increased to 10 mg daily, BP since improved
GERD / Hiatal Hernia
- Stable. Continue daily PPI.
- Monitor for any new symptoms.
Back pain
-cont prn Tramadol
-Lidocaine patch
Constipation resolved
- Bowel regimen reduced to scheduled senokot
-colace and miralax converted to prn
DVT Prophylaxis: On Eliquis
Code Status: Full
Medically stable for discharge SNF rehab pending placement
Discussed with patient and patient's Aris
I spent a total of 50 minutes with the patient or on the floor. More than 50% of this time involved counseling and coordination of care.
Anticipated Discharge: 24 - 48 hours
Subjective/Interval History
-
Date of Service: January 08, 2024
No acute distress appears comfortable at this time. Aris present during evaluation.
Objective Data
-
Labs:
Laboratory Results
01/08/24
05:50
WBC 5.5
Hgb 10.6 L
Hct 31.1 L
Plt Count 176
Sodium 141
Potassium 3.9
Chloride 103
Carbon Dioxide 31 H
BUN 7
Creatinine 0.8
Glucose 84
Calcium 8.7
Vital Signs:
Vital Signs
Temp Pulse Resp BP Pulse Ox
97.6 F 64 20 152/78 95
01/08/24 03:29 01/08/24 03:29 01/08/24 03:29 01/08/24 03:29 01/08/24 03:29
I&O
01/07/24 01/08/24 01/09/24
06:59 06:59 06:59
Intake Total 1790 / 1790 240 / 240
Balance 1790 / 1790 240 / 240
[2024-01-08 07:52] VITALS: BP 179/90
[2024-01-08] MEDS: PROTONIX 40 MG PO (09:13)
[2024-01-08] MEDS: ELIQUIS 5 MG PO ×2 (09:13→22:12)
[2024-01-08] MEDS: NEURONTIN 300 MG PO ×3 (09:13→22:12)
[2024-01-08] MEDS: VITAMIN D3 (cholecalciferol) 50 MCG PO (09:14)
[2024-01-08] MEDS: AUGMENTIN 875 MG/125 MG 1 TABLET PO ×2 (09:14→22:11)
[2024-01-08] MEDS: VISBIOME 1 CAP PO (09:14)
[2024-01-08] MEDS: OSCAL 500 + D 500 MG PO (09:14)
[2024-01-08] MEDS: VITAMIN B-12 1000 MCG PO (09:15)
[2024-01-08] MEDS: SENOKOT 8.6 MG PO ×2 (09:15→22:12)
[2024-01-08] MEDS: ZESTRIL 10 MG PO (09:15)
--- NOTE | 2024-01-08 11:11 | CM ---
Addendum entered by Yecenia Nogueira 01/08/24 15:37:
Patient asked CM to send referral to [facility] as he now would like patient to reutrn to SNF. CM sent referral via all scripts and patient will need auth from [facility]. Patient requesting covid vaccine prior to return to SNF.
Addendum entered by Yecenia Nogueira 01/08/24 14:23:
CM spoke with patient son, update provided and patient son to review options with patient and mother.
Addendum entered by Yecenia Nogueira 01/08/24 11:55:
CM spoke with patient who continues to want patient to return home with VN. CM spoke with patient and reviewed PAC data for other SNF's in the area as patient does not want to return to [facility]. Patient indicated that he
would appreciate if CM reached out to son Dr. David Abbott MD in [place] phone number [phone]. CM encouraged patient to increase supports from private aide vs another support. Currently patient has aides 3 days a week [facility]. CM updated
[facility] about request for additional services. CM will continue to follow for discharge planning needs.
Plan; home with [facility] and aide
Original Note:
Patient seen at bedside. PT recommending that patient go to SNF following treatment yesterday. Patient confirmed that she wanted CM to call patient and daughter to discuss options. CM will continue to follow for discharge planning needs.
Plan; SNF vs home with aides/VN
[2024-01-08] MEDS: TOPROL XL 100 MG PO (13:03)
[2024-01-08 16:01] VITALS: BP 118/78
[2024-01-08] MEDS: LIPITOR 10 MG PO (17:27)
[2024-01-08] MEDS: FLOMAX 0.4 MG PO (22:12)
[2024-01-08] MEDS: LIDOCAINE 4% PATCH 1 PATCH TOPICAL (22:12)
[2024-01-08] MEDS: DESYREL 50 MG PO (22:12)
[2024-01-08] MEDS: ULTRAM 50 MG PO (22:13)
[2024-01-08] MEDS: MELATONIN 5 MG PO (22:13)
[2024-01-08 23:42] VITALS: BP 158/82
[2024-01-09 06:00] VITALS: BMI 28.0
[2024-01-09 06:54] LABS: Hematocrit 34.2 % (37.0-47.0); Hemoglobin 11.7 g/dL (12.0-16.0); Mean Corp Hgb Conc. 34.2 g/dL (33.0-37.0); Mean Corpuscular Hgb 32.1 pg (27.0-31.0); Mean Platelet Volume 10.7 fL (7.4-10.4); Platelet Count 212 10^3/uL (130-400); Red Blood Cell Count 3.64 10^6/uL (4.20-5.40); Red Cell Dist. Width 11.9 % (11.5-14.5)
[2024-01-09 07:14] LABS: Blood Urea Nitrogen 8 mg/dl (7-17); Calcium 8.8 mg/dl (8.4-10.2); Carbon Dioxide 29 mmol/L (22-30); Chloride 103 mmol/L (98-107); Estimated Creatinine Clearance 51 ml/min; Glucose 91 mg/dl (70-99); Magnesium 1.8 mg/dl (1.6-2.3); Phosphorus 4.3 mg/dl (2.5-4.5); Potassium 3.7 mmol/L (3.5-5.1); Sodium 142 mmol/L (135-145); eGFR > 60.00
--- NOTE | 2024-01-09 07:28 | W.PN.HOSP.TC ---
Today's Communication/Plan
-
Medically stable for discharge pending SNF placement/auth
Assessment / Plan
Assessment / Plan
Physical Exam
General: Well Developed, Well Nourished, No Apparent Distress and Pain
HEENT: Normocephalic, Atraumatic and PERRLA
Respiratory: Clear to Auscultation; Negative Wheezes
Cardiac: S1/S2
GI: Soft, Nontender and Nondistended
Musculoskeletal: No Edema
Skin: Warm and Dry; Negative Rash
Neuro: Awake Alert Coherent Conversant
Psych: Calm
A/P: Patient is an 83y F with PMH significant for HTN, A-Fib and recent right hip ORIF who presents to ED complaining of weakness / gait dysfunction.
Bilateral Pyelonephritis
- urine cx pos for E. coli w/ good sensitivities, Ceftriaxone switched to Augmentin
- Clinically improved, tolerating abx
s/p Right Hip ORIF October
- R hip xray appreciated no acute abn's
- PT / OT eval appreciated SNF rehab
Paroxysmal Atrial Fibrillation
- Stable. Continue current med regimen including Eliquis for stroke risk reduction.
ASCVD
Benign Hypertension
Valvular Heart Disease
- BP elevated
- home lisinopril increased to 10 mg daily, BP since improved
GERD / Hiatal Hernia
- Stable. Continue daily PPI.
- Monitor for any new symptoms.
Back pain
-cont prn Tramadol
-Lidocaine patch
Constipation resolved
- Bowel regimen reduced to scheduled senokot
-colace and miralax converted to prn
DVT Prophylaxis: On Eliquis
Code Status: Full
Medically stable for discharge SNF rehab pending placement
Discussed with patient and patient's Aris
I spent a total of 40 minutes with the patient or on the floor. More than 50% of this time involved counseling and coordination of care.
Anticipated Discharge: Within 24 hours
Subjective/Interval History
-
Date of Service: January 09, 2024
Overall reports feeling well no acute distress.
Objective Data
-
Labs:
Laboratory Results
01/09/24
06:14
WBC 7.0
Hgb 11.7 L
Hct 34.2 L
Plt Count 212 D
Sodium 142
Potassium 3.7
Chloride 103
Carbon Dioxide 29
BUN 8
Creatinine 0.8
Glucose 91
Calcium 8.8
Vital Signs:
Vital Signs
Temp Pulse Resp BP Pulse Ox
98.8 F 76 18 158/82 95
01/08/24 23:42 01/08/24 23:42 01/08/24 23:42 01/08/24 23:42 01/08/24 23:42
I&O
01/08/24 01/09/24 01/10/24
06:59 06:59 06:59
Intake Total 240 / 240 300 / 300
Balance 240 / 240 300 / 300
[2024-01-09 07:50] VITALS: BP 162/92
[2024-01-09] MEDS: NEURONTIN 300 MG PO ×3 (08:22→21:56)
[2024-01-09] MEDS: VITAMIN D3 (cholecalciferol) 50 MCG PO (08:23)
[2024-01-09] MEDS: VISBIOME 1 CAP PO (08:23)
[2024-01-09] MEDS: ELIQUIS 5 MG PO ×2 (08:23→21:55)
[2024-01-09] MEDS: VITAMIN B-12 1000 MCG PO (08:23)
[2024-01-09] MEDS: SENOKOT 8.6 MG PO ×2 (08:23→21:56)
[2024-01-09] MEDS: OSCAL 500 + D 500 MG PO (08:23)
[2024-01-09] MEDS: AUGMENTIN 875 MG/125 MG 1 TABLET PO ×2 (08:23→21:56)
[2024-01-09] MEDS: PROTONIX 40 MG PO (08:23)
[2024-01-09] MEDS: ZESTRIL 10 MG PO (08:24)
[2024-01-09] MEDS: TOPROL XL 100 MG PO (12:01)
--- NOTE | 2024-01-09 12:02 | CM ---
Addendum entered by Yecenia Nogueira 01/09/24 13:44:
Submitted [employer] auth request via availty and certified in total. information updated to [facility] admissions and auth number [id number] for 7 days starting 01/09-01/16 next review date 01/15. CM will continue to follow for discharge planning needs.
Original Note:
Patient accepted for transfer when medically appropriate to [facility]. CM will initiate auth request with [employer] and update physician.
CM will continue to follow for discharge planning needs.
Plan; [facility] when medically appropriate pending bed availability and auth.
[2024-01-09 12:57] VITALS: BP 149/89; PULSE 86
[2024-01-09 15:45] VITALS: BP 148/79
[2024-01-09] MEDS: LIPITOR 10 MG PO (17:02)
[2024-01-09] MEDS: DESYREL 50 MG PO (21:55)
[2024-01-09] MEDS: LIDOCAINE 4% PATCH 1 PATCH TOPICAL (21:55)
[2024-01-09] MEDS: MELATONIN 5 MG PO (21:55)
[2024-01-09] MEDS: FLOMAX 0.4 MG PO (21:55)
[2024-01-09] MEDS: ULTRAM 50 MG PO (21:56)
[2024-01-09 23:00] VITALS: BP 156/84
[2024-01-10 05:25] VITALS: BMI 27.3
[2024-01-10 07:20] VITALS: BP 143/78
--- NOTE | 2024-01-10 07:31 | W.PN.HOSP.TC ---
Addendum entered and electronically signed by Vanessa Blanca MD 01/10/24 09:47:
Correction will plan for total 10 days of abx treatment pyelonephritis, complicated UTI
L1 compression fracture noted on CT abd/pelvis 01/04/24
-cont conservative mgmt, pain control, PT/OT
-discussed with patient's JULIA Hurst
Original Note:
Today's Communication/Plan
-
discharge
Assessment / Plan
Assessment / Plan
Physical Exam
General: Well Developed, Well Nourished, No Apparent Distress and Pain
HEENT: Normocephalic, Atraumatic and PERRLA
Respiratory: Clear to Auscultation; Negative Wheezes
Cardiac: S1/S2
GI: Soft, Nontender and Nondistended
Musculoskeletal: No Edema
Skin: Warm and Dry; Negative Rash
Neuro: Awake Alert Coherent Conversant
Psych: Calm
A/P: Patient is an 83y F with PMH significant for HTN, A-Fib and recent right hip ORIF who presents to ED complaining of weakness / gait dysfunction.
Bilateral Pyelonephritis
- urine cx pos for E. coli w/ good sensitivities, Ceftriaxone switched to Augmentin to complete total 7 days abx treatment
- Clinically improved, tolerating abx
s/p Right Hip ORIF October
- R hip xray appreciated no acute abn's
- PT / OT eval appreciated SNF rehab
Paroxysmal Atrial Fibrillation
- Stable. Continue current med regimen including Eliquis for stroke risk reduction.
ASCVD
Benign Hypertension
Valvular Heart Disease
- BP elevated
- home lisinopril increased to 10 mg daily, BP since improved, tolerating
GERD / Hiatal Hernia
- Stable. Continue daily PPI.
- Monitor for any new symptoms.
Back pain
-cont prn Tramadol
-Lidocaine patch
Constipation resolved
- Bowel regimen reduced to scheduled senokot
-colace and miralax converted to prn
DVT Prophylaxis: On Eliquis
Code Status: Full
Medically stable for discharge SNF rehab with outpatient follow up recommendations
Discussed with patient and patient's Aris
Total Time Preparing Discharge ___40____ minutes including examination of the patient, summary of the hospital stay, instructions for continuing care to all relevant caregivers; and preparation of discharge records, prescriptions, and referral
forms if necessary.
Anticipated Discharge: Today
Subjective/Interval History
-
Date of Service: January 10, 2024
Seen and examined at bedside in no acute distress. reports overall feeling well. Denies new acute issues.
Objective Data
-
Vital Signs:
Vital Signs
Temp Pulse Resp BP Pulse Ox
98.1 F 81 16 143/78 94
01/10/24 07:20 01/10/24 07:20 01/10/24 07:20 01/10/24 07:20 01/10/24 07:20
I&O
01/09/24 01/10/24 01/11/24
06:59 06:59 06:59
Intake Total 300 / 300 1180 / 1180
Balance 300 / 300 1180 / 1180
[2024-01-10] MEDS: PROTONIX 40 MG PO (08:19)
[2024-01-10] MEDS: OSCAL 500 + D 500 MG PO (08:19)
[2024-01-10] MEDS: VISBIOME 1 CAP PO (08:19)
[2024-01-10] MEDS: VITAMIN D3 (cholecalciferol) 50 MCG PO (08:19)
[2024-01-10] MEDS: AUGMENTIN 875 MG/125 MG 1 TABLET PO (08:19)
[2024-01-10] MEDS: SENOKOT 8.6 MG PO (08:19)
[2024-01-10] MEDS: VITAMIN B-12 1000 MCG PO (08:19)
[2024-01-10] MEDS: ELIQUIS 5 MG PO (08:19)
[2024-01-10] MEDS: NEURONTIN 300 MG PO (08:19)
[2024-01-10] MEDS: ZESTRIL 10 MG PO (08:20)
--- NOTE | 2024-01-10 09:10 | CM ---
Addendum entered by Cami Galvez 01/10/24 10:36:
Ambulance picker tender helper scheduled for 1130
Original Note:
Plan: Discharge to [facility] today via ambulance
and
--- NOTE | 2024-01-10 09:43 | W.DCSUMMARY ---
Discharge Summary
Discharge Data
Date of Admission: 01/04/24
Date of Discharge: 01/10/24
-
Pending Results: No
Discharge Plan
-
Patient Disposition: Snf/SNF
Discharge Diagnosis/Procedures: Pyelonephritis
History hip fracture Right hip ORIF October
Paroxysmal Atrial Fibrillation
Hypertension
L1 Compression Fracture
Diverticulosis
Constipation
Condition: Fair
Diet: Regular
Activity: With assistance, As tolerated and With Walker
Driving Restrictions: No driving
Bathing Restrictions: None
Blood Work: Please repeat CBC and BMP with primary care provider in 1 week of discharge.
Other Services: PT and OT
Activity Restrictions/Additional Instructions:
Please follow up with primary care provider in 1 week of discharge. Continue routine follow up with all healthcare providers involved in your care, including Orthopedic.
Augmentin has been prescribed for pyelonephritis, complicated urinary tract infection, to continue through 01/13/24 then stop.
Probiotic has been prescribed while on antibiotics to promote good gut health.
Lisinopril has been increased to 10 mg daily for better control hypertension.
Please take medications as prescribed/recommended and follow up with primary care provider and/or other healthcare provider involved in your care for refills and/or further adjustment to your medication regimen as necessary.
Referrals:
Stepan Leon MD [Family Provider] - in one week
Prescriptions:
New
amoxicillin-pot clavulanate 875-125 mg Tablet
1 tab PO Q12 Qty: 7 0RF
Rx Instructions:
01/13/24 last day antibiotics
lisinopril 10 mg Tablet
10 mg PO DAILY 30 Days Qty: 30 0RF
Visbiome 112.5 billion cell capsule
1 cap PO DAILY 4 Days Qty: 4 0RF
Continued
simvastatin 20 MG tablet
20 mg PO QPM
Caltrate 600 plus D 1 EACH tablet,chewable
1 ea PO DAILY
cyanocobalamin (vitamin B-12) [Vitamin B-12] 1,000 mcg Tablet
1,000 mcg PO DAILY
cholecalciferol (vitamin D3) [Vitamin D3] 50 mcg (2,000 unit) Tablet
50 mcg PO DAILY
Eliquis 5 mg Tablet
5 mg PO BID 30 Days Qty: 60 0RF
metoprolol succinate 100 mg tablet extended release 24 hr
100 mg PO NOON
pantoprazole 40 mg tablet,delayed release (DR/EC)
40 mg PO DAILY
docusate sodium 100 mg Capsule
100 mg PO BID Qty: 0 0RF
gabapentin 300 mg Capsule
300 mg PO TID Qty: 0 0RF
trazodone 50 mg Tablet
50 mg PO HS
therapeutic multivitamin Tablet
1 tab PO DAILY
acetaminophen [Tylenol Arthritis Pain] 650 mg Tablet Extended Release
650 mg PO BID
tamsulosin 0.4 mg capsule
0.4 mg PO HS
lidocaine 4 % adhesive patch,medicated
1 patch topical DAILY Qty: 0 0RF
Rx Instructions:
Lower back
Changed
sennosides [Senna Laxative] 8.6 mg tablet
8.6 mg PO BID Qty: 0 0RF
Rx Instructions:
Hold if diarrhea
melatonin 5 mg Tablet
5 mg PO HSPRN PRN (Reason: Sleep) Qty: 0 0RF
tramadol 50 MG tablet
50 mg PO Q6HPRN PRN (Reason: moderate severe pain) Qty: 10 0RF
Discontinued
lisinopril 5 mg tablet
5 mg PO DAILY
Discharge Orders:
Discharge Patient (As Directed); Ordered 01/10/24
Ordered By: Vanessa Blanca
Discharge Date and Time
Discharge Date/Time: 01/10/24 12:06
Print Language: ITALIAN
[2024-01-10 11:23] VITALS: BP 147/80
[2024-01-10] MEDS: TOPROL XL 100 MG PO (11:53)
== END 2024-01-10 12:06 | DRG 872 ==
LOC: 3 WEST ACU 18:08
PROVIDERS: ADMITTING PHYSICIAN Hospitalist; ATTENDING PHYSICIAN Internal Medicine; EMERGENCY PHYSICIAN Emergency Medicine; FAMILY PHYSICIAN Internal Medicine
DX: A41.51 Sepsis due to Escherichia coli [E. coli] (principal); N12 Tubulo-interstitial nephritis, not specified as acute or chronic; M48.56XA Collapsed vertebra, not elsewhere classified, lumbar region, initial encounter for fracture; R45.851 Suicidal ideations; I48.0 Paroxysmal atrial fibrillation; I10 Essential (primary) hypertension; I25.10 Atherosclerotic heart disease of native coronary artery without angina pectoris; I35.1 Nonrheumatic aortic (valve) insufficiency; F32.A Depression, unspecified; K59.00 Constipation, unspecified; K21.9 Gastro-esophageal reflux disease without esophagitis; E78.00 Pure hypercholesterolemia, unspecified; F41.9 Anxiety disorder, unspecified; Z98.1 Arthrodesis status; Z88.5 Allergy status to narcotic agent; Z88.8 Allergy status to other drugs, medicaments and biological substances; Z79.01 Long term (current) use of anticoagulants; Z11.52 Encounter for screening for COVID-19; Z79.899 Other long term (current) drug therapy
CPT/HCPCS: 70450; 73502; 74177; 80048; 81003; 81015; 83605; 83735; 84100; 85025; 85027; 87070; 87077; 87086; 87186; 93005; 96361; 96374; 97163; 97167; 97530; 97535; 99285; Q9967

== ENCOUNTER → 2024-01-17 11:57 | Outpatient (REF) | payer OTHER, SELFPAY ==
[2024-01-17 12:58] LABS: % Basophils 0.1 % (0-2); % Eosinophils 1.6 % (0-6); % Immature Granulocytes 0.1 % (0-0.5); % Lymphocytes 28.5 % (20.5-51.1); % Monocytes 6.4 % (1.7-9.3); % Neutrophils 63.3 % (42.2-75.2); Absolute Eosinophils 0.1 10^3/uL (0-0.7); Absolute Lymphocytes 2.1 10^3/uL (1.2-3.4); Absolute Monocytes 0.5 10^3/uL (0.1-0.6); Absolute Neutrophils 4.6 10^3/uL (1.4-6.5); Hematocrit 34.8 % (37.0-47.0); Hemoglobin 11.6 g/dL (12.0-16.0); Mean Corp Hgb Conc. 33.3 g/dL (33.0-37.0); Mean Corpuscular Hgb 32.3 pg (27.0-31.0); Mean Corpuscular Volume 96.9 fL (81.0-99.0); Mean Platelet Volume 10.8 fL (7.4-10.4); Nucleated Red Blood Cells % 0 %; Platelet Count 283 10^3/uL (130-400); Red Blood Cell Count 3.59 10^6/uL (4.20-5.40); Red Cell Dist. Width 12.4 % (11.5-14.5); White Blood Cell Count 7.3 10^3/uL (4.8-10.8)
[2024-01-17 13:41] LABS: Blood Urea Nitrogen 10 mg/dl (7-17); Calcium 9.4 mg/dl (8.4-10.2); Carbon Dioxide 30 mmol/L (22-30); Chloride 104 mmol/L (98-107); Glucose 94 mg/dl (70-99); Sodium 142 mmol/L (135-145); eGFR > 60.00
== END ==
LOC: OLABP 11:57
PROVIDERS: ATTENDING PHYSICIAN Family Medicine
DX: R26.2 Difficulty in walking, not elsewhere classified (principal); N17.9 Acute kidney failure, unspecified; I48.0 Paroxysmal atrial fibrillation; I11.9 Hypertensive heart disease without heart failure; I25.10 Atherosclerotic heart disease of native coronary artery without angina pectoris; K21.9 Gastro-esophageal reflux disease without esophagitis; K44.9 Diaphragmatic hernia without obstruction or gangrene; M48.00 Spinal stenosis, site unspecified; M54.50 Low back pain, unspecified; K59.00 Constipation, unspecified; F41.9 Anxiety disorder, unspecified; F32.9 Major depressive disorder, single episode, unspecified; N12 Tubulo-interstitial nephritis, not specified as acute or chronic; N39.0 Urinary tract infection, site not specified; B96.20 Unspecified Escherichia coli [E. coli] as the cause of diseases classified elsewhere; M62.81 Muscle weakness (generalized)
CPT/HCPCS: 36415; 80048; 85025

== ENCOUNTER → 2024-01-21 12:12 | Outpatient (REF) | payer OTHER, SELFPAY ==
[2024-01-21 13:11] LABS: Hematocrit 31.8 % (37.0-47.0); Hemoglobin 10.6 g/dL (12.0-16.0); Mean Corp Hgb Conc. 33.3 g/dL (33.0-37.0); Mean Corpuscular Hgb 30.7 pg (27.0-31.0); Mean Corpuscular Volume 92.2 fL (81.0-99.0); Mean Platelet Volume 11.4 fL (7.4-10.4); Platelet Count 262 10^3/uL (130-400); Red Blood Cell Count 3.45 10^6/uL (4.20-5.40); Red Cell Dist. Width 12.4 % (11.5-14.5); White Blood Cell Count 5.8 10^3/uL (4.8-10.8)
[2024-01-21 13:49] LABS: Blood Urea Nitrogen 11 mg/dl (7-17); Calcium 8.9 mg/dl (8.4-10.2); Carbon Dioxide 29 mmol/L (22-30); Chloride 105 mmol/L (98-107); Glucose 88 mg/dl (70-99); Sodium 143 mmol/L (135-145); eGFR > 60.00
== END ==
LOC: OLABP 12:12
PROVIDERS: ATTENDING PHYSICIAN Family Medicine
DX: R26.2 Difficulty in walking, not elsewhere classified (principal); N17.9 Acute kidney failure, unspecified; I48.0 Paroxysmal atrial fibrillation; I11.9 Hypertensive heart disease without heart failure; I25.10 Atherosclerotic heart disease of native coronary artery without angina pectoris; K21.9 Gastro-esophageal reflux disease without esophagitis; K44.9 Diaphragmatic hernia without obstruction or gangrene; M48.00 Spinal stenosis, site unspecified; M54.50 Low back pain, unspecified; K59.00 Constipation, unspecified; F41.9 Anxiety disorder, unspecified; F32.9 Major depressive disorder, single episode, unspecified; N12 Tubulo-interstitial nephritis, not specified as acute or chronic; N39.0 Urinary tract infection, site not specified; B96.20 Unspecified Escherichia coli [E. coli] as the cause of diseases classified elsewhere; M62.81 Muscle weakness (generalized)
CPT/HCPCS: 36415; 80048; 85027

== ENCOUNTER 2024-01-24 13:23 | Emergency (ER) | payer OTHER, SELFPAY ==
[2024-01-24 13:26] VITALS: BP 115/83
--- NOTE | 2024-01-24 15:43 | EDRN ---
Dr. Schwab in to see pt.
[2024-01-24 15:44] VITALS: BMI 25.7
--- NOTE | 2024-01-24 15:45 | EDRN ---
Pt states she fell, not using her walker. Pt is home from rehab since yesterday. Pt tried to walk w/out walker after on commode. Pt was up walking around and fell onto her L side. Pt hurt her L wrist and hit the left side of her head.
[2024-01-24 15:48] VITALS: BP 146/70
--- NOTE | 2024-01-24 15:48 | ED.GENMED ---
History of Present Illness
General
Chief Complaint: Head Injury
Source: patient and spouse
Exam Limitations: none
Time Seen by Provider: 01/24/24 15:27
Nursing documentation reviewed up to this point in time: agreed with
History of Present Illness
History of Present Illness:
83-year-old female presents emergency room after tripping and falling yesterday, injuring her left wrist. She takes Eliquis. She denies loss of consciousness.
Past History
Past History
ED Past Medical History: Arrthythmia, CAD, HTN and Hypercholesterolemia
ED Past Surgical History: Orthopedic (cerv fusion)
Social History
Tobacco: Non-smoker
Alcohol: None
Drug: None
Personal:
Living: with family
Employment: Retired
Family History
Family History: Other (Noncontributory)
Review of Systems
Review of Systems
Allergies reviewed?: Yes
All Other Systems: Not applicable
Constitutional: Reports no symptoms
EENT: Reports no symptoms
Respiratory: Reports no symptoms
Cardiac: Reports no symptoms
ABD/GI: Reports no symptoms
: Reports no symptoms
Musculoskeletal: Reports joint pain
Skin: Reports no symptoms
Neurological: Reports no symptoms
Endocrine: Reports no symptoms
Psychiatric: Reports no symptoms
Phy Exam
Physical Exam
Physical Exam:
Physical Exam
General: no apparent distress, not acutely ill
Neck: supple. no meningeal signs. normal posterior pharynx
Heart: s1/s2 regular rate and rhythm, no murmur. equal radial
pulses.
HEENT: Pupils equal round reactive to light, EOMI
Lungs: no acute respiratory distress. clear bilaterally
Abdomen: normal bowel sounds. not tender. no CVAT
Neuro: alert and oriented. no focal neurological deficits cranial nerves II through XII intact
Skin: no rash
Psychiatric: well kept. interactive and cooperative
Extremities: no edema. no calf tenderness. negative homans. good distal pulses
Course
Orders/Labs/Results
Orders:
Orders
01/24/24 13:32
CT Head W/o Iv Contrast Urgent
Comment:
Reason For Exam: fall on Eliquis
01/24/24 13:36
CT Cervical Spine W/o Iv Contr Urgent
Comment:
Reason For Exam: fall
Wrist, Left 3 Views CR [CR Wrist - Left Min 3 Views] Urgent
Comment:
Reason For Exam: fall
01/24/24 15:46
Tino Wrap Left-Treatment ONCE
Vital Signs
Initial and Last Documented VS:
Initial Vital Signs
Temp Pulse Resp BP Pulse Ox
97.8 F 93 16 115/83 98
01/24/24 13:26 01/24/24 13:26 01/24/24 13:26 01/24/24 13:26 01/24/24 13:26
Last Documented Vital Signs
Temp Pulse Resp BP Pulse Ox
97.8 F 75 16 146/70 95
01/24/24 13:26 01/24/24 15:48 01/24/24 15:48 01/24/24 15:48 01/24/24 15:48
MDM/Problems Addressed
Differential Diagnosis Includes:
Intracranial hemorrhage, left wrist fracture, C-spine fracture
MDM/Problems Addressed:
83-year-old female with fall yesterday, no intracranial hemorrhage, no signs of C-spine fracture or left wrist fracture. Likely minor left wrist sprain. Patient stable for discharge.
Chronic conditions affecting care: HTN
Acute Exacerbation and/or Progression of Chronic Illness: HTN
*Radiology
Radiology exam reviewed: radiology read reviewed (CT head no acute findings, CT cervical spine no acute findings, left wrist x-ray no signs of fracture)
*Pulse Oximetry
Patient hypoxic: no
*Critical Care Note
Total Time (30-74mins, 75-104mins- exclusive of procedures): Not Applicable
Patient Management
Social determinants of health affecting care: Living situation and Poor outpatient follow-up
Escalation/DeEscalation of care consider admission/obs:
Admit not indicated
ED Attending Note
-
Portions of this chart may have been created with voice recognition software.� Occasional wrong word or��sound alike� substitutions may have occurred due to the inherent limitations of voice recognition software.
Discharge Plan
Departure
Patient Disposition: Home (Routine Discharge)
Date of Disposition: 01/24/24
Time of Disposition: 15:58
Patient with high blood pressure during this ER visit?: Yes
Condition: Good
Discharge Problem:
Left wrist sprain, Fall
Prescriptions:
No Action
simvastatin 20 MG tablet
20 mg PO QPM
Caltrate 600 plus D 1 EACH tablet,chewable
1 ea PO DAILY
cyanocobalamin (vitamin B-12) [Vitamin B-12] 1,000 mcg Tablet
1,000 mcg PO DAILY
cholecalciferol (vitamin D3) [Vitamin D3] 50 mcg (2,000 unit) Tablet
50 mcg PO DAILY
Eliquis 5 mg Tablet
5 mg PO BID 30 Days Qty: 60 0RF
metoprolol succinate 100 mg tablet extended release 24 hr
100 mg PO NOON
pantoprazole 40 mg tablet,delayed release (DR/EC)
40 mg PO DAILY
docusate sodium 100 mg Capsule
100 mg PO BID Qty: 0 0RF
gabapentin 300 mg Capsule
300 mg PO TID Qty: 0 0RF
trazodone 50 mg Tablet
50 mg PO HS
therapeutic multivitamin Tablet
1 tab PO DAILY
acetaminophen [Tylenol Arthritis Pain] 650 mg Tablet Extended Release
650 mg PO BID
tamsulosin 0.4 mg capsule
0.4 mg PO HS
amoxicillin-pot clavulanate 875-125 mg Tablet
1 tab PO Q12 Qty: 7 0RF
Rx Instructions:
01/13/24 last day antibiotics
lisinopril 10 mg Tablet
10 mg PO DAILY 30 Days Qty: 30 0RF
Visbiome 112.5 billion cell capsule
1 cap PO DAILY 4 Days Qty: 4 0RF
sennosides [Senna Laxative] 8.6 mg tablet
8.6 mg PO BID Qty: 0 0RF
Rx Instructions:
Hold if diarrhea
lidocaine 4 % adhesive patch,medicated
1 patch topical DAILY Qty: 0 0RF
Rx Instructions:
Lower back
melatonin 5 mg Tablet
5 mg PO HSPRN PRN (Reason: Sleep) Qty: 0 0RF
tramadol 50 MG tablet
50 mg PO Q6HPRN PRN (Reason: moderate severe pain) Qty: 10 0RF
Interventions
Interventions:
*Risk Screen - Suicide Last Done: 01/24/24 13:26
*General Assessment Last Done: 01/24/24 13:26
*Neglect/Abuse Screening Last Done: 01/24/24 13:26
*ED COVID-19 Vaccine History Last Done: 01/24/24 15:44
ED- Neurological Assessment Last Done: 01/24/24 15:50
ED-Skin Assessment Last Done: 01/24/24 15:50
Discharge Date and Time
Print Language: BELARUSIAN
== END 2024-01-24 16:36 | disposition home or self-care (01) ==
LOC: EMR 13:23
PROVIDERS: EMERGENCY PHYSICIAN Emergency Medicine
DX: S63.502A Unspecified sprain of left wrist, initial encounter (principal); W01.0XXA Fall on same level from slipping, tripping and stumbling without subsequent striking against object, initial encounter; I25.10 Atherosclerotic heart disease of native coronary artery without angina pectoris; I10 Essential (primary) hypertension; E78.00 Pure hypercholesterolemia, unspecified; Z79.01 Long term (current) use of anticoagulants; Z59.9 Problem related to housing and economic circumstances, unspecified
CPT/HCPCS: 99284; 70450; 72125; 73110

== ENCOUNTER 2024-03-02 22:09 | Inpatient (IN) | payer OTHER, SELFPAY ==
[2024-03-02] VITALS (8 sets, daily range): BP systolic 121–192; BP diastolic 66–93; BMI 24.7; BMI 26.0
--- NOTE | 2024-03-02 19:21 | ED.GENMED ---
History of Present Illness
General
Chief Complaint: Weakness
Time Seen by Provider: 03/02/24 19:14
History of Present Illness
History of Present Illness:
83-year-old female presents to the emergency department for evaluation of acute onset of fever and generalized weakness. states that she was in her normal state of health toda, went to a primary care physician appointment and was reportedly
feeling fine. Shortly after returning home began to have periods of weakness and was unable to get herself off a chair in her living room. On arrival she complains of generalized myalgias and general weakness.
Past History
Past History
ED Past Medical History: Arrthythmia, CAD, HTN and Hypercholesterolemia
ED Past Surgical History: Orthopedic (cerv fusion)
Social History
Tobacco: Non-smoker
Alcohol: None
Drug: None
Personal:
Living: with family
Employment: Retired
Family History
Family History: Other (Noncontributory)
Review of Systems
Review of Systems
Allergies reviewed?: Yes
All Other Systems: ROS reviewed and negative except as documented in HPI and ROS
Phy Exam
Physical Exam
Physical Exam:
GEN: Well appearing, NAD, WDWN
Eyes: PERRLA, EOMs intact, no scleral icterus
HENT: NCAT, oral mucosa moist
Lungs: CTAB, no wheezes, rales, rhonchi, normal chest wall excursion
Cardiac: RRR, no M/R/G, no peripheral edema. Radial pulses 2+ bilat
Abdomen: S, NT, ND, NABS, no masses or hepatosplenomegaly
Neuro: AO x 3
MSK: No gross deformity or ecchymosis. No edema. No digital clubbing
Skin: No rashes, petechiae. Normal color, no pallor or jaundice.
Psych: Calm, cooperative, proper hygiene
Sepsis
Sepsis Screening
Sepsis Assessment: Sepsis
Sepsis Screen
Sepsis Screen: Sepsis
Date: 03/02/24
Time: 20:55
Course
Orders/Labs/Results
Orders:
Orders
03/02/24 19:15
Complete Blood Count/With Diff Urgent
Lactic Acid Urgent
Urinalysis Reflex To Culture Urgent
Date Specimen was Collected: 03/02/24
Time Specimen was Collected: 19:14
Urine Microscopic Reflex Cult Urgent
Urine Culture Urgent
TANA Source: U
Specimen Description:
Date Specimen was Collected: 03/02/24
Time Specimen was Collected: 19:14
03/02/24 19:20
Acetaminophen [Tylenol/Feverall] 650 mg .ROUTE .STK-MED ONE
Acetaminophen [Tylenol/Feverall] 650 mg RECTAL NOW STA
03/02/24 19:34
Basic Metabolic Panel Urgent
COVID-19 Antigen Urgent
Source: Nasal Swab
Influenza A+B Rapid Molecular Urgent
TANA Source: Nasal Swab
Specimen Description:
03/02/24 19:46
0.9% Sodium Chloride 1000 ml [Nss] 1,000 ml IV BOLUS
CefTRIAXone [Rocephin] 1,000 mg IV NOW STA
Abnormal Lab Results
03/02/24 03/02/24
19:15 19:34
WBC 11.4 H 10^3/uL
(4.8-10.8)
RBC 3.82 L 10^6/uL
(4.20-5.40)
Hgb 11.6 L g/dL
(12.0-16.0)
Hct 35.7 L %
(37.0-47.0)
MCHC 32.5 L g/dL
(33.0-37.0)
Absolute Neuts (auto) 9.4 H 10^3/uL
(1.4-6.5)
Absolute Lymphs (auto) 1.0 L 10^3/uL
(1.2-3.4)
Absolute Monos (auto) 0.9 H 10^3/uL
(0.1-0.6)
Neutrophils % 82.8 H %
(42.2-75.2)
Lymphocytes % 8.5 L %
(20.5-51.1)
Glucose 106 H mg/dl
(70-99)
Ur Occult Blood Reflex 3+ A
(Negative)
Urine Nitrite (Reflex) Positive A
(Negative)
Leukocyte Esterase Rfl 2+ A
(Negative)
Urine WBC (Reflex) 26-30 A /HPF
(0-5)
Urine Bacteria (Reflex) Many A
(Negative)
03/02/24 19:15
03/02/24 19:34
Vital Signs
Initial and Last Documented VS:
Initial Vital Signs
Temp Pulse Resp BP Pulse Ox
102 F H 92 18 192/93 96
03/02/24 19:10 03/02/24 19:10 03/02/24 19:10 03/02/24 19:10 03/02/24 19:10
Last Documented Vital Signs
Temp Pulse Resp BP Pulse Ox
102 F H 89 18 192/93 93
03/02/24 19:10 03/02/24 19:15 03/02/24 19:15 03/02/24 19:12 03/02/24 19:15
MDM/Problems Addressed
MDM/Problems Addressed:
UA consistent with UTI, given advanced age and rapid onset of fever with significant weakness she is reasonable for admission to the hospital for IV antibiotics
*Critical Care Note
Total Time (30-74mins, 75-104mins- exclusive of procedures): Not Applicable
ED Attending Note
-
Portions of this chart may have been created with voice recognition software.� Occasional wrong word or��sound alike� substitutions may have occurred due to the inherent limitations of voice recognition software.
Discharge Plan
Departure
Patient Disposition: Admit
Date of Disposition: 03/02/24
Time of Disposition: 20:15
Presentation/result/management discussed w/ accepting MD/DO: Hospitalist
Discharge Problem:
Urinary tract infection
Prescriptions:
No Action
simvastatin 20 MG tablet
20 mg PO QPM
cyanocobalamin (vitamin B-12) [Vitamin B-12] 1,000 mcg Tablet
1,000 mcg PO DAILY
cholecalciferol (vitamin D3) [Vitamin D3] 50 mcg (2,000 unit) Tablet
50 mcg PO DAILY
Eliquis 5 mg Tablet
5 mg PO BID 30 Days Qty: 60 0RF
metoprolol succinate 100 mg tablet extended release 24 hr
100 mg PO NOON
pantoprazole 40 mg tablet,delayed release (DR/EC)
40 mg PO DAILY
docusate sodium 100 mg Capsule
100 mg PO BID Qty: 0 0RF
gabapentin 300 mg Capsule
300 mg PO TID Qty: 0 0RF
trazodone 50 mg Tablet
50 mg PO HS
therapeutic multivitamin Tablet
1 tab PO DAILY
tamsulosin 0.4 mg capsule
0.4 mg PO HS
lisinopril 10 mg Tablet
10 mg PO DAILY 30 Days Qty: 30 0RF
sennosides [Senna Laxative] 8.6 mg tablet
8.6 mg PO BID Qty: 0 0RF
Rx Instructions:
Hold if diarrhea
lidocaine 4 % adhesive patch,medicated
1 patch topical DAILY Qty: 0 0RF
Rx Instructions:
Lower back
melatonin 5 mg Tablet
5 mg PO HSPRN PRN (Reason: Sleep) Qty: 0 0RF
tramadol 50 MG tablet
50 mg PO Q6HPRN PRN (Reason: moderate severe pain) Qty: 10 0RF
Caltrate 600 plus D 600 mg-20 mcg (800 unit) Tablet,Chewable
1 tab PO DAILY
Referrals:
Concepcion Hamlin MD [Family Provider] -
Interventions
Interventions:
*Risk Screen - Suicide Last Done: 03/02/24 19:10
*General Assessment Last Done: 03/02/24 19:10
*Neglect/Abuse Screening Last Done: 03/02/24 19:10
ED- Cardiac Assessment Last Done: 03/02/24 19:23
ED- Neurological Assessment Last Done: 03/02/24 19:23
ED- Pulmonary Assessment Last Done: 03/02/24 19:23
Discharge Date and Time
Print Language: YORUBA
[2024-03-02 19:24] LABS: % Basophils 0.2 % (0-2); % Eosinophils 0.4 % (0-6); % Immature Granulocytes 0.4 % (0-0.5); % Lymphocytes 8.5 % (20.5-51.1); % Monocytes 7.7 % (1.7-9.3); % Neutrophils 82.8 % (42.2-75.2); Absolute Monocytes 0.9 10^3/uL (0.1-0.6); Absolute Neutrophils 9.4 10^3/uL (1.4-6.5); Hematocrit 35.7 % (37.0-47.0); Hemoglobin 11.6 g/dL (12.0-16.0); Mean Corp Hgb Conc. 32.5 g/dL (33.0-37.0); Mean Corpuscular Hgb 30.4 pg (27.0-31.0); Mean Corpuscular Volume 93.5 fL (81.0-99.0); Mean Platelet Volume 9.9 fL (7.4-10.4); Nucleated Red Blood Cells % 0 %; Platelet Count 211 10^3/uL (130-400); Red Blood Cell Count 3.82 10^6/uL (4.20-5.40); White Blood Cell Count 11.4 10^3/uL (4.8-10.8)
[2024-03-02] MEDS: TYLENOL/FEVERALL 650 MG RECTAL (19:26)
[2024-03-02 19:34] LABS: Urine Albumin Trace (Neg - Trace); Urine Bilirubin Negative (Negative); Urine Character Slightly Cloudy (Clear); Urine Color Straw; Urine Glucose Negative (Negative); Urine Ketone Negative (Negative); Urine Leukocyte 2+ (Negative); Urine Nitrite Positive (Negative); Urine Occult Blood 3+ (Negative); Urine Urobilinogen Negative (Neg - 1+)
[2024-03-02 19:35] LABS: Lactic Acid 1.3 mmol/L (0.7-2.0)
[2024-03-02 19:44] LABS: Urine Bacteria Many (Negative); Urine Red Blood Cell 0-2 /HPF (0-2); Urine Squamous Cell 0-2 /LPF (Few); Urine White Cell 26-30 /HPF (0-5)
[2024-03-02 20:01] LABS: Blood Urea Nitrogen 11 mg/dl (7-17); Calcium 8.9 mg/dl (8.4-10.2); Carbon Dioxide 28 mmol/L (22-30); Chloride 101 mmol/L (98-107); Estimated Creatinine Clearance 50 ml/min; Glucose 106 mg/dl (70-99); Sodium 140 mmol/L (135-145); eGFR > 60.00
[2024-03-02 20:03] LABS: COVID-19 Antigen Negative (Negative)
[2024-03-02] MEDS: NSS 1000 IV (20:36)
[2024-03-02] MEDS: ROCEPHIN 1000 MG IV (20:36)
--- NOTE | 2024-03-02 21:34 | HPS.HSE ---
Family Physician
-
Family Physician: Concepcion Hamlin MD
Chief Complaint
-
Weakness and fever
History of Present Illness
This is an 83-year-old female was past medical history of paroxysmal atrial fibrillation, hypertension and history of recent recurrent urinary tract infection presents to the emergency department with sudden onset weakness today.
states that she was in her normal state of health toda, went to a primary care physician appointment and was reportedly feeling fine. Shortly after returning home began to have periods of weakness and was unable to get herself off a chair
in her living room. On arrival she complains of generalized myalgias and general weakness.
On arrival in the ED she was febrile to 1 �F blood pressure was 190/93 with a pulse of 89 oxygen saturation was 93%. She had leukocytosis to 11,000 with normal hemoglobin and plate count. Chemistries were within normal limits. UA was markedly
positive.
Medical History
Past Medical History
Past Medical History: Reports Arrhythmia (Proximal atrial fibrillation), GERD and HTN
Past Surgical History: Reports Orthopedic
Social History
Tobacco: Non-smoker
Alcohol: None
Drug: None
Personal:
Living: With Family
Employment: Retired
Family History
Family History: Not pertinent
Allergies / Home Medications
Allergies reflects when Allergies were last updated in [facility].
Home Medications with original date entered in [facility]
Allergy/Medication List:
Allergies
Allergy/AdvReac Type Severity Reaction Status Date / Time
duloxetine HCl Allergy DIZZY Verified 03/02/24 19:10
[From Cymbalta]
oxycodone Allergy dizzy Verified 03/02/24 19:10
Home Medications
simvastatin 20 mg tablet 20 mg PO QPM High Cholesterol 01/01/14
cholecalciferol (vitamin D3) 50 mcg (2,000 unit) tablet (Vitamin D3) 50 mcg PO DAILY Supplement 01/04/23
cyanocobalamin (vitamin B-12) 1,000 mcg tablet (Vitamin B-12) 1,000 mcg PO DAILY Supplement 01/04/23
apixaban 5 mg tablet (Eliquis) 5 mg PO BID 30 days #60 tabs 01/07/23
metoprolol succinate 100 mg tablet,extended release 24 hr 100 mg PO NOON Blood Pressure 10/22/23
pantoprazole 40 mg tablet,delayed release 40 mg PO DAILY Gastrointestinal Issue 10/22/23
docusate sodium 100 mg capsule 100 mg PO BID #0 caps 11/05/23
gabapentin 300 mg capsule 300 mg PO TID #0 caps 11/05/23
tamsulosin 0.4 mg capsule 0.4 mg PO HS Urinary Issue 01/04/24
therapeutic multivitamin 1 tab PO DAILY Supplement 01/04/24
trazodone 50 mg tablet 50 mg PO HS Sleep 01/04/24
lidocaine 4 % topical patch 1 patch topical DAILY pain #0 ea 01/10/24
lisinopril 10 mg tablet 10 mg PO DAILY 30 days #30 tabs 01/10/24
melatonin 5 mg tablet 5 mg PO HSPRN PRN Sleep #0 tabs 01/10/24
sennosides 8.6 mg tablet (Senna Laxative) 8.6 mg PO BID #0 tabs 01/10/24
tramadol 50 mg tablet 50 mg PO Q6HPRN PRN moderate severe pain #10 tabs 01/10/24
calcium 600 mg (as carbonate)-vit D3 20 mcg (800 unit) chewable tablet (Caltrate plus D) 1 tab PO DAILY 03/02/24
Review of Systems
-
History Source: Family
Constitutional: Reports Fever and Fatigue
EENT: Reports No Symptoms
Respiratory: Reports No Symptoms
Cardiac: Reports No Symptoms
Abdomen/GI: Reports No Symptoms
: Reports No Symptoms
Musculoskeletal: Reports No Symptoms
Neurological: Reports No Symptoms
Endocrine: Reports No Symptoms
Hematologic/Lymphatic: Reports No Symptoms
Psych: Reports No Symptoms
Physical Exam
Vital Signs
Vital Signs
Temp Pulse Resp BP Pulse Ox
102 F H 89 18 192/93 93
03/02/24 19:10 03/02/24 19:15 03/02/24 19:15 03/02/24 19:12 03/02/24 19:15
Physical Exam
General: Well Developed, Comfortable and Conversant
HEENT: NormoCephalic, Anicteric, Moist mucous membranes and Atraumatic
Respiratory: Clear
Cardiac: S1/S2 and Regular Rhythm
Breast: Deferred by me
GI: Soft, Non Tender, Non Distended and Normal Bowel Sounds
Rectal: Deferred by Provider
Genito-urinary: Turbid Urine and No costovertebral tender
Musculoskeletal: No Clubbing, No Cyanosis and No Edema
Skin: Warm
Neuro: Alert and Oriented (oriented to person, year)
Hematologic/Lymphatic: No Lymphadenopathy
Psych: Calm
Laboratory Results
-
03/02/24 19:15
03/02/24 19:34
Laboratory Results
Lactic Acid 1.3 mmol/L (0.7-2.0) 03/02/24 19:15
Total Bilirubin Cancelled 03/02/24 19:34
AST Cancelled 03/02/24 19:34
ALT Cancelled 03/02/24 19:34
Alkaline Phosphatase Cancelled 03/02/24 19:34
Data Reviewed
-
Lab Data: Labs Reviewed by me
Old Records: Reviewed
Impression/Plan
-
IMPRESSION:
83-year-old female who has a recent hip [id number] developed subsequent urinary tract infection status post admission for IV antibiotics and discharged on Augmentin presented to the emergency department 2 weeks acute episode of fever and
slight alteration in mental status. Found to have positive UA in the ED.
PLAN:
Recurrent UTI - No history of stones. Possibly mild LUTS in setting of recent surgery.
- admit to medsurg
- blood cultures, urine cultures
- IV ceftriaxone for now (prior cultures sensitive)
- broad if spike fever
- consider prophylaxis as outpatient
- continue tamsulosin
pAFIB - stable rate control
- continue metoprolol succiante
- continue ac with apixaban
HTN
metoprolol
DVT PPX - on apixaban
code status - full
[2024-03-02] MEDS: DESYREL 50 MG PO (23:15)
[2024-03-02] MEDS: FLOMAX 0.4 MG PO (23:15)
[2024-03-02] MEDS: NEURONTIN 300 MG PO (23:15)
--- NOTE | 2024-03-03 05:30 | PTCARENOTE ---
Received pt around 10:30pm from ED and transferred from stretcher to bed in room. Pt VSS, afebrile and saturations in the 90s. Pt ate a sandwich and took night medication without any issues.
[2024-03-03 06:00] VITALS: BMI 26.0
[2024-03-03 06:40] LABS: Hematocrit 35.5 % (37.0-47.0); Hemoglobin 11.2 g/dL (12.0-16.0); Mean Corp Hgb Conc. 31.5 g/dL (33.0-37.0); Mean Corpuscular Hgb 30.8 pg (27.0-31.0); Mean Corpuscular Volume 97.5 fL (81.0-99.0); Mean Platelet Volume 10.3 fL (7.4-10.4); Platelet Count 193 10^3/uL (130-400); Red Blood Cell Count 3.64 10^6/uL (4.20-5.40); Red Cell Dist. Width 12.1 % (11.5-14.5); White Blood Cell Count 11.3 10^3/uL (4.8-10.8)
[2024-03-03 07:01] LABS: Blood Urea Nitrogen 9 mg/dl (7-17); Calcium 8.7 mg/dl (8.4-10.2); Carbon Dioxide 30 mmol/L (22-30); Chloride 104 mmol/L (98-107); Estimated Creatinine Clearance 41 ml/min; Glucose 100 mg/dl (70-99); Potassium 3.9 mmol/L (3.5-5.1); Sodium 143 mmol/L (135-145); eGFR > 60.00
[2024-03-03 07:45] VITALS: BP 168/81
--- NOTE | 2024-03-03 09:04 | VNURNOTE ---
Chart reviewed. Patient is current with [facility] nursing, PT, OT. Will continue to follow hospital course and DC plans.
[2024-03-03] MEDS: ELIQUIS 5 MG PO ×2 (09:48→19:41)
[2024-03-03] MEDS: PROTONIX 40 MG PO (09:48)
[2024-03-03] MEDS: NEURONTIN 300 MG PO ×3 (09:48→22:06)
[2024-03-03] MEDS: SENOKOT 8.6 MG PO ×2 (09:48→19:41)
[2024-03-03] MEDS: COLACE 100 MG PO ×2 (09:49→19:41)
[2024-03-03] MEDS: LIDOCAINE 4% PATCH 1 PATCH TOPICAL (09:49)
[2024-03-03] MEDS: ZESTRIL 10 MG PO (09:55)
[2024-03-03 10:08] VITALS: BMI 26.0
[2024-03-03] MEDS: DESENEX/MITRAZOL/ZEASORB 1 APPLIC TOPICAL ×2 (10:38→19:43)
[2024-03-03] MEDS: TOPROL XL 100 MG PO (11:40)
--- NOTE | 2024-03-03 12:00 | CM ---
CM met with spouse in the hallway
Pt and spouse reside [place] with [place], pt noted to have some current confusion
Pt ambulates short distances under supervision with a WW
She utilizes a WC for longer distances, she is able to self propel short distances only
Pt has a clerical aide teacher MWF 4 hours who assists with light hands on assistance for personal care tasks
Aide is paid through pt's LTC insurance policy
Spouse assists on off days
Pt is current with [facility]
Denies financial insecurities
PCP- Concepcion Lyn
Rx- [facility] [address] [facility]
Son/Dr Mayoaye Abbott is neurosurgeon in [place] and assists pt and spouse with medical decision making
PT/OT orders requested
Spouse would like pt to dc home with continued care through [facility]
Pt has hx at [facility]
Discharge Disposition- anticipate home with [facility], watch for higher needs
--- NOTE | 2024-03-03 12:14 | PTCARENOTE ---
Patient was confused this am to place and time. Patient is now AAOx3, spouse is at bedside. Patient tolerated 100 of breakfast. Patient is refusing Lidoderm patch for lower back. Call espinoza in reach, bed alarm maintained.
--- NOTE | 2024-03-03 12:49 | W.PN.HOSP.TC ---
Today's Communication/Plan
-
continue current Tx pending ur cx
Assessment / Plan
Assessment / Plan
Sepsis from Recurrent UTI - No history of stones. Possibly mild LUTS in setting of recent surgery
(TME,leukocytosis, UTI, fever)
WBC 11.4-->11.3
- admit to medsurg
- blood cultures, urine cultures
Ur E.Coli, sens pending
- IV ceftriaxone for now (prior cultures sensitive)
- broad if spike fever
- consider prophylaxis as outpatient
- continue tamsulosin
CT scan from 01/04/24 (consider repeat): As described, CT findings highly suggestive of bilateral pyelonephritis. No evidence for renal abscess.
Anastomotic staple line at the internal rectal junction. Moderate distention of the rectum with stool, new since prior examination. No convincing CT findings of stercoral colitis.
Colonic diverticula with no CT evidence for diverticulitis.
The appendix appears normal. No evidence for bowel obstruction or free intraperitoneal air.
Mild changes of bronchiectasis and scarring within the visualized posterior lower lungs, stable.
Moderate anterior compression deformity of the L1 vertebral body, likely acute to subacute and new from CT examination of April 17, 2023.
pAFIB - stable rate control
- continue metoprolol succiante
- continue ac with apixaban
Toxic Metabolic Encephalopathy
unclear what baseline
HTN
metoprolol
DVT PPX - on apixaban
met with in room
code status - full
Anticipated Discharge: > 48 hours
Subjective/Interval History
-
Date of Service: March 03, 2024
Awake, alert, very weak
Objective Data
-
Labs:
Laboratory Results
03/03/24
05:57
WBC 11.3 H
Hgb 11.2 L
Hct 35.5 L
Plt Count 193
Sodium 143
Potassium 3.9
Chloride 104
Carbon Dioxide 30
BUN 9
Creatinine 0.9
Glucose 100 H
Calcium 8.7
Vital Signs:
Vital Signs
Temp Pulse Resp BP Pulse Ox
99.4 F 87 16 168/81 97
03/03/24 07:45 03/03/24 07:45 03/03/24 07:45 03/03/24 07:45 03/03/24 07:45
I&O
03/02/24 03/03/24 03/04/24
06:59 06:59 06:59
Intake Total 240 / 240
Balance 240 / 240
Review of Systems
-
History Source: Patient and Family ( at bedside)
Constitutional: Reports Fever (102 on admission)
Respiratory: Reports No Symptoms
Cardiac: Reports No Symptoms
Abdomen/GI: Reports No Symptoms
Physical Exam
-
General: Well Developed, Well Nourished, No Apparent Distress and Appears Chronically Ill
HEENT: Normocephalic, Atraumatic and Moist Mucous Membranes
Respiratory: Clear to Auscultation; Negative Wheezes, Rales or Rhonchi
Cardiac: Regular Rhythm and S1/S2
GI: Soft, Nontender and Nondistended
Musculoskeletal: No Clubbing, No Cyanosis and No Edema
Neuro: Awake and Alert
[2024-03-03 15:55] VITALS: BP 150/78
[2024-03-03] MEDS: LIPITOR 10 MG PO (16:35)
[2024-03-03] MEDS: ROCEPHIN 1000 MG IV (19:42)
[2024-03-03] MEDS: STERILE WATER FOR INJECTION 10 ML IV (19:42)
[2024-03-03] MEDS: FLOMAX 0.4 MG PO (22:06)
[2024-03-03] MEDS: DESYREL 50 MG PO (22:06)
[2024-03-03 23:30] VITALS: BP 165/71
[2024-03-04 06:38] LABS: % Basophils 0.3 % (0-2); % Eosinophils 0.9 % (0-6); % Immature Granulocytes 0.4 % (0-0.5); % Lymphocytes 22.7 % (20.5-51.1); % Monocytes 9.8 % (1.7-9.3); % Neutrophils 65.9 % (42.2-75.2); Absolute Eosinophils 0.1 10^3/uL (0-0.7); Absolute Lymphocytes 1.7 10^3/uL (1.2-3.4); Absolute Monocytes 0.7 10^3/uL (0.1-0.6); Absolute Neutrophils 4.9 10^3/uL (1.4-6.5); Hematocrit 34.1 % (37.0-47.0); Hemoglobin 10.8 g/dL (12.0-16.0); Mean Corp Hgb Conc. 31.7 g/dL (33.0-37.0); Mean Corpuscular Hgb 30.1 pg (27.0-31.0); Mean Platelet Volume 10.2 fL (7.4-10.4); Nucleated Red Blood Cells % 0 %; Platelet Count 203 10^3/uL (130-400); Red Blood Cell Count 3.59 10^6/uL (4.20-5.40); Red Cell Dist. Width 11.9 % (11.5-14.5); White Blood Cell Count 7.5 10^3/uL (4.8-10.8)
[2024-03-04 06:59] LABS: Blood Urea Nitrogen 9 mg/dl (7-17); Calcium 8.6 mg/dl (8.4-10.2); Carbon Dioxide 30 mmol/L (22-30); Chloride 103 mmol/L (98-107); Estimated Creatinine Clearance 41 ml/min; Glucose 92 mg/dl (70-99); Potassium 3.4 mmol/L (3.5-5.1); Sodium 142 mmol/L (135-145); eGFR > 60.00
[2024-03-04 07:00] VITALS: BP 179/86
[2024-03-04 08:49] VITALS: BP 157/81; PULSE 80; O2SAT 97
[2024-03-04 08:50] VITALS: BP 157/81; PULSE 81
[2024-03-04] MEDS: NEURONTIN 300 MG PO ×3 (08:53→22:05)
[2024-03-04] MEDS: PROTONIX 40 MG PO (08:53)
[2024-03-04] MEDS: ZESTRIL 10 MG PO ×2 (08:53→20:29)
[2024-03-04] MEDS: COLACE 100 MG PO ×2 (08:53→20:29)
[2024-03-04] MEDS: ELIQUIS 5 MG PO ×2 (08:53→20:29)
[2024-03-04] MEDS: SENOKOT 8.6 MG PO ×2 (08:53→20:29)
[2024-03-04] MEDS: DESENEX/MITRAZOL/ZEASORB 1 APPLIC TOPICAL ×2 (08:54→20:31)
[2024-03-04] MEDS: LIDOCAINE 4% PATCH 1 PATCH TOPICAL (08:54)
[2024-03-04] MEDS: ULTRAM 50 MG PO (10:58)
--- NOTE | 2024-03-04 11:54 | W.PN.HOSP.TC ---
Today's Communication/Plan
-
increase Lisinopril
Check CT scan
Assessment / Plan
Assessment / Plan
Sepsis from Recurrent UTI - No history of stones. Possibly mild LUTS in setting of recent surgery
(TME,leukocytosis, UTI, fever)
WBC 11.4-->11.3-->7.5k
- admit to medsurg
discussed dc to SNF, pt and want her dc to home
- blood cultures, urine cultures
Ur E.Coli, sens to Cefazolin
- IV ceftriaxone for now
- consider prophylaxis as outpatient
- continue tamsulosin
CT scan from 01/04/24 (will repeat): As described, CT findings highly suggestive of bilateral pyelonephritis. No evidence for renal abscess.
Anastomotic staple line at the internal rectal junction. Moderate distention of the rectum with stool, new since prior examination. No convincing CT findings of stercoral colitis.
Colonic diverticula with no CT evidence for diverticulitis.
The appendix appears normal. No evidence for bowel obstruction or free intraperitoneal air.
Mild changes of bronchiectasis and scarring within the visualized posterior lower lungs, stable.
Moderate anterior compression deformity of the L1 vertebral body, likely acute to subacute and new from CT examination of April 17, 2023.
pAFIB - stable rate control
- continue metoprolol succinate
- continue ac with apixaban
Toxic Metabolic Encephalopathy
better, as per at baseline
HTN
metoprolol
BP has been running high systolic.
will increase Lisinopril
Mild hypokalemia
will supplement
DVT PPX - on apixaban
met with in room
code status - full
Anticipated Discharge: 24 - 48 hours
Subjective/Interval History
-
Date of Service: March 04, 2024
More awake, believes she is about her baseline mentation
Objective Data
-
Labs:
Laboratory Results
03/04/24
05:53
WBC 7.5
Hgb 10.8 L
Hct 34.1 L
Plt Count 203
Sodium 142
Potassium 3.4 L
Chloride 103
Carbon Dioxide 30
BUN 9
Creatinine 0.9
Glucose 92
Calcium 8.6
Vital Signs:
Vital Signs
Temp Pulse Resp BP Pulse Ox
98.4 F 87 16 179/86 96
03/04/24 07:00 03/04/24 08:53 03/04/24 07:00 03/04/24 08:53 03/04/24 07:00
I&O
03/03/24 03/04/24 03/05/24
06:59 06:59 06:59
Intake Total 240 / 240 940 / 940
Output Total
Balance 240 / 240 939 / 939
Review of Systems
-
History Source: Patient and Family ( at bedside)
Constitutional: Reports Fever (102 on admission, afebrile since admission)
Respiratory: Reports No Symptoms
Cardiac: Reports No Symptoms
Abdomen/GI: Reports No Symptoms
Physical Exam
-
General: Well Developed, Well Nourished, No Apparent Distress and Appears Chronically Ill
HEENT: Normocephalic, Atraumatic and Moist Mucous Membranes
Respiratory: Clear to Auscultation; Negative Wheezes, Rales or Rhonchi
Cardiac: Regular Rhythm and S1/S2
GI: Soft, Nontender and Nondistended
Musculoskeletal: No Clubbing, No Cyanosis and No Edema
Neuro: Awake and Alert
[2024-03-04] MEDS: KCL 20 MEQ PO (12:51)
[2024-03-04] MEDS: TOPROL XL 100 MG PO (12:54)
[2024-03-04 15:05] VITALS: BP 141/79
--- NOTE | 2024-03-04 15:57 | CM ---
CM met with pt and spouse bedside to review dc planning
Therapy following with SNF recs
Both pt and spouse declined noting poor past experience
They plan to return home with [facility]
Encourages they increase private duty to daily
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
Discharge Disposition- declined SNF, home with [facility] and private duty
[2024-03-04] MEDS: LIPITOR 10 MG PO (17:14)
[2024-03-04] MEDS: ROCEPHIN 1000 MG IV (20:34)
[2024-03-04] MEDS: STERILE WATER FOR INJECTION 10 ML IV (20:34)
[2024-03-04] MEDS: FLOMAX 0.4 MG PO (22:05)
[2024-03-04] MEDS: DESYREL 50 MG PO (22:05)
[2024-03-04 23:51] VITALS: BP 159/77
[2024-03-05 05:30] VITALS: BMI 26.1
[2024-03-05 06:00] VITALS: BMI 26.1
[2024-03-05 07:15] VITALS: BP 156/88
[2024-03-05 07:54] LABS: % Basophils 0.3 % (0-2); % Eosinophils 1.1 % (0-6); % Immature Granulocytes 0.3 % (0-0.5); % Lymphocytes 30.7 % (20.5-51.1); % Monocytes 9.3 % (1.7-9.3); % Neutrophils 58.3 % (42.2-75.2); Absolute Eosinophils 0.1 10^3/uL (0-0.7); Absolute Lymphocytes 1.9 10^3/uL (1.2-3.4); Absolute Monocytes 0.6 10^3/uL (0.1-0.6); Absolute Neutrophils 3.6 10^3/uL (1.4-6.5); Hematocrit 33.8 % (37.0-47.0); Hemoglobin 11.4 g/dL (12.0-16.0); Mean Corp Hgb Conc. 33.7 g/dL (33.0-37.0); Mean Corpuscular Hgb 31.6 pg (27.0-31.0); Mean Corpuscular Volume 93.6 fL (81.0-99.0); Mean Platelet Volume 10.7 fL (7.4-10.4); Nucleated Red Blood Cells % 0 %; Platelet Count 222 10^3/uL (130-400); Red Blood Cell Count 3.61 10^6/uL (4.20-5.40); Red Cell Dist. Width 11.9 % (11.5-14.5); White Blood Cell Count 6.1 10^3/uL (4.8-10.8)
[2024-03-05] MEDS: PROTONIX 40 MG PO (07:54)
[2024-03-05] MEDS: ZESTRIL 10 MG PO ×2 (07:54→20:59)
[2024-03-05] MEDS: SENOKOT 8.6 MG PO ×2 (07:54→20:58)
[2024-03-05] MEDS: ELIQUIS 5 MG PO ×2 (07:54→20:59)
[2024-03-05] MEDS: COLACE 100 MG PO ×2 (07:54→21:00)
[2024-03-05] MEDS: NEURONTIN 300 MG PO ×3 (07:54→20:58)
[2024-03-05] MEDS: LIDOCAINE 4% PATCH 1 PATCH TOPICAL (07:54)
[2024-03-05] MEDS: DESENEX/MITRAZOL/ZEASORB 1 APPLIC TOPICAL ×2 (07:57→21:00)
[2024-03-05 08:14] LABS: Blood Urea Nitrogen 9 mg/dl (7-17); Calcium 8.9 mg/dl (8.4-10.2); Carbon Dioxide 29 mmol/L (22-30); Chloride 103 mmol/L (98-107); Estimated Creatinine Clearance 46 ml/min; Glucose 92 mg/dl (70-99); Potassium 3.5 mmol/L (3.5-5.1); Sodium 144 mmol/L (135-145); eGFR > 60.00
[2024-03-05] MEDS: TOPROL XL 100 MG PO (11:27)
--- NOTE | 2024-03-05 14:46 | W.PN.HOSP.TC ---
Today's Communication/Plan
-
transition to oral abx tomorrow and possible dc to follow
Assessment / Plan
Assessment / Plan
Sepsis from Recurrent UTI - No history of stones. Possibly mild LUTS in setting of recent surgery
(TME,leukocytosis, UTI, fever)
WBC 11.4-->11.3-->7.5-->6.1k
discussed dc to SNF, pt and want her dc to home
- urine cultures
Ur E.Coli, sens to Cefazolin
- IV ceftriaxone for now
- consider prophylaxis as outpatient
- continue tamsulosin
CT scan from 01/04/24: As described, CT findings highly suggestive of bilateral pyelonephritis. No evidence for renal abscess.
Anastomotic staple line at the internal rectal junction. Moderate distention of the rectum with stool, new since prior examination. No convincing CT findings of stercoral colitis.
Colonic diverticula with no CT evidence for diverticulitis.
The appendix appears normal. No evidence for bowel obstruction or free intraperitoneal air.
Mild changes of bronchiectasis and scarring within the visualized posterior lower lungs, stable.
Moderate anterior compression deformity of the L1 vertebral body, likely acute to subacute and new from CT examination of April 17, 2023.
Concern for possible nonresolved Pyelo, as such repeat CT scan was performed 03/05:No acute pathology of the abdomen or pelvis identified. Evaluation for pyelonephritis is limited without IV contrast.
Too small to characterize hypodense hepatic lesion likely a cyst or hemangioma. Stable
Gallstones. Probably stable
Mild left adrenal thickening probably due to benign adrenal hyperplasia. Stable from 2016 suggesting it is benign
Diverticulosis. Stable
Mild anterior L1 compression fracture. Stable
pAFIB - stable rate control
- continue metoprolol succinate
- continue ac with apixaban
Toxic Metabolic Encephalopathy
better, as per at baseline, significantly improved.
HTN - Better, 152/81
metoprolol
BP has been running high systolic.
will increase Lisinopril
Mild hypokalemia
will supplement, better, 3.4-->3.5
DVT PPX - on apixaban
met with in room
code status - full
Anticipated Discharge: 24 - 48 hours
Subjective/Interval History
-
Date of Service: March 05, 2024
Looks markedly better, much more alert, conversant
Objective Data
-
Labs:
Laboratory Results
03/05/24
06:51
WBC 6.1
Hgb 11.4 L
Hct 33.8 L
Plt Count 222
Sodium 144
Potassium 3.5
Chloride 103
Carbon Dioxide 29
BUN 9
Creatinine 0.8
Glucose 92
Calcium 8.9
Vital Signs:
Vital Signs
Temp Pulse Resp BP Pulse Ox
98.2 F 82 18 152/81 96
03/05/24 07:15 03/05/24 11:27 03/05/24 07:15 03/05/24 11:27 03/05/24 07:15
I&O
03/04/24 03/05/24 03/06/24
06:59 06:59 06:59
Intake Total 940 / 940
Output Total
Balance 939 / 939
Review of Systems
-
History Source: Patient and Family ( at bedside)
Constitutional: Reports Fever (102 on admission, afebrile since admission)
Respiratory: Reports No Symptoms
Cardiac: Reports No Symptoms
Abdomen/GI: Reports No Symptoms
Physical Exam
-
General: Well Developed, Well Nourished, No Apparent Distress and Appears Chronically Ill
HEENT: Normocephalic, Atraumatic and Moist Mucous Membranes
Respiratory: Clear to Auscultation; Negative Wheezes, Rales or Rhonchi
Cardiac: Regular Rhythm and S1/S2
GI: Soft, Nontender and Nondistended
Genito-urinary: No Costovertebral Tender
Musculoskeletal: No Clubbing, No Cyanosis and No Edema
Neuro: Awake and Alert
[2024-03-05 15:10] VITALS: BP 161/84
[2024-03-05] MEDS: LIPITOR 10 MG PO (17:10)
[2024-03-05] MEDS: DESYREL 50 MG PO (20:59)
[2024-03-05] MEDS: FLOMAX 0.4 MG PO (20:59)
[2024-03-05] MEDS: STERILE WATER FOR INJECTION 10 ML IV (20:59)
[2024-03-05] MEDS: ROCEPHIN 1000 MG IV (20:59)
[2024-03-05 23:00] VITALS: BP 167/84
[2024-03-05] MEDS: TUMS CHEWABLE TABLET 400 MG PO (23:55)
[2024-03-06 06:00] VITALS: BMI 26.4
[2024-03-06 07:56] VITALS: BP 174/84
[2024-03-06] MEDS: SENOKOT 8.6 MG PO (09:39)
[2024-03-06] MEDS: ELIQUIS 5 MG PO (09:39)
[2024-03-06] MEDS: ZESTRIL 10 MG PO (09:39)
[2024-03-06] MEDS: PROTONIX 40 MG PO (09:39)
[2024-03-06] MEDS: DESENEX/MITRAZOL/ZEASORB 1 APPLIC TOPICAL (09:40)
[2024-03-06] MEDS: NEURONTIN 300 MG PO (09:40)
[2024-03-06] MEDS: COLACE 100 MG PO (09:40)
[2024-03-06] MEDS: LIDOCAINE 4% PATCH 1 PATCH TOPICAL (09:41)
[2024-03-06] MEDS: TOPROL XL 100 MG PO (12:29)
--- NOTE | 2024-03-06 12:46 | W.PN.HOSP.TC ---
Today's Communication/Plan
-
dc now
Assessment / Plan
Assessment / Plan
Sepsis from Recurrent UTI - No history of stones. Possibly mild LUTS in setting of recent surgery
(TME,leukocytosis, UTI, fever)
WBC 11.4-->11.3-->7.5-->6.1k
discussed dc to SNF, pt and want her dc to home
- urine cultures
Ur E.Coli, sens to Cefazolin
- IV ceftriaxone for now
- consider prophylaxis as outpatient
- continue tamsulosin
CT scan from 01/04/24: As described, CT findings highly suggestive of bilateral pyelonephritis. No evidence for renal abscess.
Anastomotic staple line at the internal rectal junction. Moderate distention of the rectum with stool, new since prior examination. No convincing CT findings of stercoral colitis.
Colonic diverticula with no CT evidence for diverticulitis.
The appendix appears normal. No evidence for bowel obstruction or free intraperitoneal air.
Mild changes of bronchiectasis and scarring within the visualized posterior lower lungs, stable.
Moderate anterior compression deformity of the L1 vertebral body, likely acute to subacute and new from CT examination of April 17, 2023.
Concern for possible nonresolved Pyelo, as such repeat CT scan was performed 03/05:No acute pathology of the abdomen or pelvis identified. Evaluation for pyelonephritis is limited without IV contrast.
Too small to characterize hypodense hepatic lesion likely a cyst or hemangioma. Stable
Gallstones. Probably stable
Mild left adrenal thickening probably due to benign adrenal hyperplasia. Stable from 2016 suggesting it is benign
Diverticulosis. Stable
Mild anterior L1 compression fracture. Stable
pAFIB - stable rate control
- continue metoprolol succinate
- continue ac with apixaban
Toxic Metabolic Encephalopathy
better, as per at baseline, significantly improved.
HTN - Better, 152/81-174/84
metoprolol
BP has been running high systolic.
will increase Lisinopril
Mild hypokalemia
will supplement, better, 3.4-->3.5
DVT PPX - on apixaban
met with in room
code status - full
More than 30 minutes spent in discharge including
Final examination of the patient
Summarizing hospital stay
Instructions for continuing care to all relevant caregivers
Preparation of discharge records, prescriptions, and referral forms
Total time spent (in minutes): 45
Anticipated Discharge: Today
Subjective/Interval History
-
Date of Service: March 06, 2024
Walking around room without difficulty. believes pt is at her baseline mentation
Objective Data
-
Vital Signs:
Vital Signs
Temp Pulse Resp BP Pulse Ox
97.9 F 73 16 174/84 95
03/06/24 07:56 03/06/24 07:56 03/06/24 07:56 03/06/24 07:56 03/06/24 07:56
I&O
03/05/24 03/06/24 03/07/24
06:59 06:59 06:59
Intake Total 1500 / 1500
Balance 1500 / 1500
Review of Systems
-
History Source: Patient and Family ( at bedside)
Constitutional: Reports Fever (102 on admission, afebrile since admission)
Respiratory: Reports No Symptoms
Cardiac: Reports No Symptoms
Abdomen/GI: Reports No Symptoms
Neuro: Reports No Symptoms
Physical Exam
-
General: Well Developed, Well Nourished, No Apparent Distress and Appears Chronically Ill
HEENT: Normocephalic, Atraumatic and Moist Mucous Membranes
Respiratory: Clear to Auscultation; Negative Wheezes, Rales or Rhonchi
Cardiac: Regular Rhythm and S1/S2
GI: Soft, Nontender and Nondistended
Genito-urinary: No Costovertebral Tender
Musculoskeletal: No Clubbing, No Cyanosis and No Edema
Neuro: Awake and Alert
--- NOTE | 2024-03-06 13:01 | W.DS.TRANS ---
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
-
Discharge Instructions:
Discharge Diagnosis/Procedures UTI
Diet Regular
Activity With assistance,No strenuous activity
Driving Restrictions No driving
Bathing Restrictions None
Other Services VN
Instructions:
Stand-Alone Forms:
Changes to Home Medications: Yes
Discharge Medications:
DC Medications w/original date entered in [employer]
simvastatin 20 mg tablet 20 mg PO QPM High Cholesterol 01/01/14
cholecalciferol (vitamin D3) 50 mcg (2,000 unit) tablet (Vitamin D3) 50 mcg PO DAILY Supplement 01/04/23
cyanocobalamin (vitamin B-12) 1,000 mcg tablet (Vitamin B-12) 1,000 mcg PO DAILY Supplement 01/04/23
apixaban 5 mg tablet (Eliquis) 5 mg PO BID 30 days #60 tabs 01/07/23
metoprolol succinate 100 mg tablet,extended release 24 hr 100 mg PO NOON Blood Pressure 10/22/23
pantoprazole 40 mg tablet,delayed release 40 mg PO DAILY Gastrointestinal Issue 10/22/23
docusate sodium 100 mg capsule 100 mg PO BID #0 caps 11/05/23
gabapentin 300 mg capsule 300 mg PO TID #0 caps 11/05/23
tamsulosin 0.4 mg capsule 0.4 mg PO HS Urinary Issue 01/04/24
therapeutic multivitamin 1 tab PO DAILY Supplement 01/04/24
trazodone 50 mg tablet 50 mg PO HS Sleep 01/04/24
lidocaine 4 % topical patch 1 patch topical DAILY pain #0 ea 01/10/24
lisinopril 10 mg tablet 10 mg PO DAILY 30 days #30 tabs 01/10/24
melatonin 5 mg tablet 5 mg PO HSPRN PRN Sleep #0 tabs 01/10/24
sennosides 8.6 mg tablet (Senna Laxative) 8.6 mg PO BID #0 tabs 01/10/24
tramadol 50 mg tablet 50 mg PO Q6HPRN PRN moderate severe pain #10 tabs 01/10/24
calcium 600 mg (as carbonate)-vit D3 20 mcg (800 unit) chewable tablet (Caltrate plus D) 1 tab PO DAILY Supplement 03/02/24
cefuroxime axetil 500 mg tablet 500 mg PO BID 10 days #20 tabs 03/06/24
Home Medication Changes
Ceftin for next 5 days
Pending Results: No
--- NOTE | 2024-03-06 13:33 | CM ---
Met with patient's spouse at bedside
IMM benefit explained and signed
will transport home
Plan: discharge to home with resumption of [facility] services and home health aid
== END 2024-03-06 14:11 | disposition home health service (06) | DRG 871 ==
LOC: 3 WEST ACU 22:09
PROVIDERS: Physician Assistant; ADMITTING PHYSICIAN Internal Medicine; ATTENDING PHYSICIAN Internal Medicine; EMERGENCY PHYSICIAN Emergency Medicine; FAMILY PHYSICIAN Family Medicine
DX: A41.9 Sepsis, unspecified organism (principal); G93.41 Metabolic encephalopathy; N39.0 Urinary tract infection, site not specified; M48.56XA Collapsed vertebra, not elsewhere classified, lumbar region, initial encounter for fracture; I48.0 Paroxysmal atrial fibrillation; I10 Essential (primary) hypertension; E87.6 Hypokalemia; K21.9 Gastro-esophageal reflux disease without esophagitis; Z88.6 Allergy status to analgesic agent; Z88.8 Allergy status to other drugs, medicaments and biological substances; Z87.440 Personal history of urinary (tract) infections; D18.00 Hemangioma unspecified site; K80.20 Calculus of gallbladder without cholecystitis without obstruction; K57.30 Diverticulosis of large intestine without perforation or abscess without bleeding; Z11.52 Encounter for screening for COVID-19; E78.00 Pure hypercholesterolemia, unspecified; I25.10 Atherosclerotic heart disease of native coronary artery without angina pectoris; B96.20 Unspecified Escherichia coli [E. coli] as the cause of diseases classified elsewhere; Z79.01 Long term (current) use of anticoagulants
CPT/HCPCS: 74176; 80048; 81003; 81015; 83605; 85025; 85027; 87086; 87088; 87186; 87502; 87811; 96361; 96374; 97162; 97166; 97530; 99285

== ENCOUNTER → 2024-03-17 15:17 | Outpatient (REF) | payer OTHER, SELFPAY | LOC: PAVMRI 15:17 | PROVIDERS: ATTENDING PHYSICIAN Orthopaedic Surgery Hand Surgery; FAMILY PHYSICIAN Family Medicine | DX: M54.16 Radiculopathy, lumbar region (principal) | CPT/HCPCS: 72148 ==

== ENCOUNTER → 2024-03-25 10:13 | Outpatient (REF) | payer OTHER, SELFPAY ==
[2024-03-25 11:15] LABS: % Basophils 0.3 % (0-2); % Eosinophils 0.9 % (0-6); % Immature Granulocytes 0.3 % (0-0.5); % Lymphocytes 23.8 % (20.5-51.1); % Monocytes 5.5 % (1.7-9.3); % Neutrophils 69.2 % (42.2-75.2); Absolute Eosinophils 0.1 10^3/uL (0-0.7); Absolute Lymphocytes 1.6 10^3/uL (1.2-3.4); Absolute Monocytes 0.4 10^3/uL (0.1-0.6); Absolute Neutrophils 4.6 10^3/uL (1.4-6.5); Hematocrit 40.2 % (37.0-47.0); Hemoglobin 13.1 g/dL (12.0-16.0); Mean Corp Hgb Conc. 32.6 g/dL (33.0-37.0); Mean Platelet Volume 10.5 fL (7.4-10.4); Nucleated Red Blood Cells % 0 %; Platelet Count 200 10^3/uL (130-400); Red Blood Cell Count 4.23 10^6/uL (4.20-5.40); Red Cell Dist. Width 12.9 % (11.5-14.5); White Blood Cell Count 6.6 10^3/uL (4.8-10.8)
[2024-03-25 11:50] LABS: ALT (SGPT) 10 U/L (0-35); AST (SGOT) 18 U/L (14-36); Albumin 4.2 g/dl (3.5-5.0); Alkaline Phosphatase 66 U/L (38-126); Blood Urea Nitrogen 9 mg/dl (7-17); Calcium 9.5 mg/dl (8.4-10.2); Carbon Dioxide 31 mmol/L (22-30); Chloride 103 mmol/L (98-107); Glucose 100 mg/dl (70-99); HDL Cholesterol 65 mg/dl; LDL Cholesterol, Calculated 92 mg/dl; Potassium 4.6 mmol/L (3.5-5.1); Sodium 140 mmol/L (135-145); Total Bilirubin 0.7 mg/dl (0.2-1.3); Total Cholesterol 176 mg/dl (50-199); Total Protein 7.1 g/dl (6.3-8.2); Triglyceride 98 mg/dl (10-149); Very Low Density Lipoprotein 19 mg/dl (0-30); eGFR > 60.00
[2024-03-25 12:16] LABS: TSH Reflex To Free T4 1.13 uIU/ml (0.47-4.68)
[2024-03-25 12:51] LABS: Folate 17.3 ng/ml (2.76-20)
[2024-03-25 15:34] LABS: Vitamin B12 921 pg/ml (239-931)
== END ==
LOC: REG 10:13
PROVIDERS: ATTENDING PHYSICIAN Family Medicine
DX: E78.2 Mixed hyperlipidemia (principal); I10 Essential (primary) hypertension; R09.89 Other specified symptoms and signs involving the circulatory and respiratory systems; R53.1 Weakness; N39.0 Urinary tract infection, site not specified; A41.9 Sepsis, unspecified organism; E87.6 Hypokalemia
CPT/HCPCS: 36415; 80053; 80061; 82607; 82746; 84443; 85025

== ENCOUNTER → 2024-04-23 13:22 | Outpatient (REF) | payer OTHER, SELFPAY | LOC: RAD 13:22 | PROVIDERS: ATTENDING PHYSICIAN Family Medicine | DX: Z78.0 Asymptomatic menopausal state (principal) | CPT/HCPCS: 77080 ==

== ENCOUNTER 2024-05-12 09:55 | Inpatient (IN) | payer OTHER, SELFPAY ==
[2024-05-09 18:48] VITALS: BP 147/81
--- NOTE | 2024-05-09 19:07 | ED.GENMED ---
History of Present Illness
General
Chief Complaint: Cold/Flu/URI Symptoms
Source: patient
Time Seen by Provider: 05/09/24 18:55
History of Present Illness
History of Present Illness:
83-year-old female with past medical history of hypertension, hyperlipidemia, chronic back and neck pain presenting to the emergency department with via EMS for evaluation of lethargy, cough and decreased p.o. intake which started acutely
around this afternoon stating that the last time patient seemed to the sick she had a urinary tract infection but notes patient has not been complaining of any urinary symptoms. does note that he himself had mild URI-like symptoms
earlier in the week but he took some DayQuil and has been feeling better. Patient did receive her flu and COVID vaccines this year. Patient is not able to provide any further history due to current status. At baseline patient reportedly uses a
wheelchair and walker, lives in a ranch or spiral house with her but notes today he was having a hard time getting the patient around.
Past History
Past History
ED Past Medical History: Arrthythmia, CAD, HTN, Hypercholesterolemia and Psychiatric
ED Past Surgical History: Orthopedic (cerv fusion) and Other
Social History
Tobacco: Non-smoker
Alcohol: None
Drug: None
Personal:
Living: with family
Employment: Retired
Family History
Family History: Other (Noncontributory)
Review of Systems
Review of Systems
All Other Systems: ROS reviewed and negative except as documented in HPI and ROS
Phy Exam
Physical Exam
Physical Exam:
GENERAL: Lethargic, not answering questions, eyes closed, does open eyes to sternal rub but mostly not talking
HEAD: Normocephalic atraumatic
EYE: conjunctiva clear
NECK: Supple
ENT: o/p clr, mmm.
CARDIAC: Borderline tachycardic rate and rhythm
LUNGS: Clear breath sounds bilaterally, no acute respiratory distress, no wheezes/rales/rhonchi
ABDOMEN: Soft, normoactive bowel sounds nontender, nondistended
NEUROLOGICAL: Alert and oriented
SKIN: Hot to the touch and dry, skin intact.
MUSCULOSKELETAL: well perfused.
PSYCH: Unable to assess.
Scores
Heart Failure Risk
Heart Failure Risk Score: Not Applicable
Heart Score for Chest Pain Patients
STEMI patient?: Not applicable
Withdrawal Assessment of Alcohol
Withdrawal Assessment Completed?: Not applicable
Sepsis
Sepsis Screening
Sepsis Assessment: Sepsis
Sepsis Screen
Sepsis Screen: Sepsis
Date: 05/10/24
Time: 00:18
Course
Orders/Labs/Results
Orders:
Orders
05/09/24 18:55
Acetaminophen [Tylenol] 1,000 mg PO NOW STA
CR Chest Portable - 1 View Urgent
Comment:
Reason For Exam: fever, cough
Reason Study Needs to be Portable: Unable to Transport
05/09/24 19:07
0.9% Sodium Chloride 1000 ml [Nss] 1,000 ml IV BOLUS
05/09/24 19:12
Basic Metabolic Panel Urgent
COVID-19 Antigen Urgent
Source: Nasal Swab
Complete Blood Count/With Diff Urgent
Lactic Acid Q4H
Comment: CANCEL 2nd LACTIC ACID IF 1st LACTIC ACID IS LESS THAN 2
Influenza A+B Rapid Molecular Urgent
TANA Source: Nasal Swab
Specimen Description:
05/09/24 19:14
Urinalysis Reflex To Culture Urgent
Date Specimen was Collected: 05/09/24
Time Specimen was Collected: 19:10
05/09/24 20:07
Comprehensive Metabolic Panel Urgent
Blood Culture Q30M
TANA Source: Blood/Venous
Specimen Description:
Blood Culture Q30M
TANA Source: Blood/Venous
Specimen Description:
05/09/24 21:39
Piperacillin/Tazo 3.375 Gram [Zosyn] 3.375 gram in 50 ml IV NOW
05/09/24 21:58
Vancomycin [Vancocin] 2,000 mg 0.9% Sodium Chloride 500 ml [Nss] 500 ml IV NOW
05/09/24 22:25
Admit/Transfer Patient As Directed
Co-Sign Provider:
Level of Care: Observation services
Assign to:: Medical/Surgical
Physician / Group: Hospitalist
Diagnosis: Cough, fever
Reason for Hospitalization: Cough, fever
Expected length of stay greater than two midnights?: Yes
ELOS- Estimated Length of Stay in days: 3
I certify the patient meets the requirements for IP care: Yes
PRN Pain Medication Management As Directed
May give lesser potent ordered pain med per pt: Yes
preference::
Protocol:: Medication orders for pain may be administered in a
manner that supports deferring to patient preference
when the pt is:
- Requesting an ordered lesser potent pain medication.
Least to most potent pain medications are defined
as: acetaminophen < NSAID < tramadol < opioids
(morphine, oxycodone, hydromorphone).
- Requesting a lesser dose of the same medication IF
ORDERED.
- Requesting a less intrusive route of administration
if both routes are prescribed by the provider (PO <
IV).
05/09/24 22:46
Code Status As Directed
Resuscitation Status: Full Code
05/10/24 00:12
Acetaminophen [Tylenol] 650 mg PO Q4HPRN PRN
Bisacodyl [Dulcolax] 10 mg RECTAL [id number] PRN
Docusate W/Senna [Senokot-S] 1 tablet PO BIDPRN PRN
Melatonin 5 mg PO HSPRN PRN
Polyethylene Glycol Powder [Miralax] 17 grams PO DAILYPRN PRN
Tramadol HCl [Ultram] 50 mg PO Q6HPRN PRN
05/10/24 00:12
Respiratory Culture/Gram Stain Routine
TANA Source: Sputum
Specimen Description:
Activity As Directed
Activity Level: With Assistance
Pneumatic Compression Sleeves As Directed
Type: Knee high
Vital Signs As Directed
Frequency: Per unit guidelines
DX Deep Vein Thrombosis Video Routine
05/10/24 Breakfast
Regular
Basic Metabolic Panel IN AM
Complete Blood Count/No Diff IN AM
05/10/24 08:00
Apixaban [Eliquis] 5 mg PO BID
Cholecalciferol (Vitamin D3) [VITAMIN D3 (cholecalciferol)] 50 mcg PO DAILY
Cyanocobalamin [Vitamin B-12] 1,000 mcg PO DAILY
Docusate Sodium [Colace] 100 mg PO BID
Gabapentin [Neurontin] 300 mg PO TID
Lidocaine [Lidocaine 4% Patch] 1 patch TOPICAL DAILY
Apply Lidocaine patch(s) to:: lower back
Lisinopril [Zestril] 10 mg PO DAILY
Multivitamin [Theragran] 1 tablet PO DAILY
Pantoprazole [Protonix] 40 mg PO DAILY
Sennosides [Senokot] 8.6 mg PO BID
calcium carbonate-vitamin D3 [Caltrate 600 plus D] 1 tablet PO DAILY
05/10/24 12:00
Metoprolol Xl [Toprol Xl] 100 mg PO NOON
05/10/24 18:00
simvastatin 20 mg PO QPM
05/10/24 22:00
Tamsulosin [Flomax] 0.4 mg PO HS
Trazodone [Desyrel] 50 mg PO HS
Abnormal Lab Results
05/09/24 05/09/24
19:12 20:07
RBC 3.88 L 10^6/uL
(4.20-5.40)
Hct 36.7 L %
(37.0-47.0)
MCHC 32.7 L g/dL
(33.0-37.0)
Absolute Neuts (auto) 7.0 H 10^3/uL
(1.4-6.5)
Absolute Lymphs (auto) 0.5 L 10^3/uL
(1.2-3.4)
Neutrophils % 87.8 H %
(42.2-75.2)
Lymphocytes % 5.6 L %
(20.5-51.1)
Glucose 105 H mg/dl 105 H mg/dl
(70-99) (70-99)
05/09/24 19:12
05/09/24 20:07
Vital Signs
Initial and Last Documented VS:
Initial Vital Signs
Temp Pulse Resp BP Pulse Ox
102.9 F H 95 24 147/81 93
05/09/24 18:48 05/09/24 18:48 05/09/24 18:48 05/09/24 18:48 05/09/24 18:48
Last Documented Vital Signs
Temp Pulse Resp BP Pulse Ox
99.1 F 85 24 157/68 97
05/09/24 23:41 05/09/24 23:41 05/09/24 23:41 05/09/24 23:41 05/09/24 23:41
MDM/Problems Addressed
Differential Diagnosis Includes:
Encephalopathy secondary to pyrexia/infection, COVID/flu or other viral etiology, pneumonia, urinary tract infection, bacteremia
MDM/Problems Addressed:
83-year-old female presenting to the emergency department for evaluation of generalized malaise/fatigue and cough with stating the symptoms began acutely earlier this afternoon. Patient significantly febrile in triage and was brought back
to the ER due to her fever and mild hypoxia. At time of my exam patient was maintaining her O2 saturation around 95-90 on room air. Patient does appear somewhat lethargic, not answering questions but does open her eyes to voice. Coughing noted
during exam. Will check labs, COVID and flu testing. Based off initial presentation patient may be a possible admission candidate. Disposition pending.
*Radiology
Radiology exam reviewed: preliminary read by ED provider (No consolidations or effusions)
*Pulse Oximetry
Patient hypoxic: no
*Agricultural Education Teacher Interpretation
Rate: normal
Rhythm: sinus
*Critical Care Note
Total Time (30-74mins, 75-104mins- exclusive of procedures): Not Applicable
Data Reviewed
Review of Other/Old Records Reveals: Labs and Records
Source: patient and records
Patient Management
Discussion with other providers: Hospitalist
Escalation/DeEscalation of care consider admission/obs:
At this time patient's workup is largely unremarkable. Her urinalysis is negative, lactic acid normal, no leukocytosis however she still had a fever. Given her age combined with chronic medical conditions and current mental state patient is not a
candidate to be discharged home. Broad-spectrum antibiotics ordered to cover for any potential bacteremia. Hospitalist team accepts for continued evaluation and treatment.
ED Attending Note
-
Portions of this chart may have been created with voice recognition software.� Occasional wrong word or��sound alike� substitutions may have occurred due to the inherent limitations of voice recognition software.
Discharge Plan
Departure
Patient Disposition: Admit
Date of Disposition: 05/09/24
Time of Disposition: 21:42
Presentation/result/management discussed w/ accepting MD/DO: Hospitalist
Discharge Problem:
Encephalopathy, Fever
Interventions
Interventions:
*Risk Screen - Suicide Last Done: 05/09/24 18:48
*General Assessment Last Done: 05/09/24 20:17
*Neglect/Abuse Screening Last Done: 05/09/24 18:48
ED- Fall Risk Assessment Last Done: 05/09/24 20:17
*ED COVID-19 Vaccine History Last Done: 05/09/24 20:17
ED- Pulmonary Assessment Last Done: 05/09/24 20:17
[2024-05-09 19:27] LABS: % Basophils 0.1 % (0-2); % Eosinophils 0.4 % (0-6); % Immature Granulocytes 0.2 % (0-0.5); % Lymphocytes 5.6 % (20.5-51.1); % Monocytes 5.9 % (1.7-9.3); % Neutrophils 87.8 % (42.2-75.2); Absolute Lymphocytes 0.5 10^3/uL (1.2-3.4); Absolute Monocytes 0.5 10^3/uL (0.1-0.6); Hematocrit 36.7 % (37.0-47.0); Mean Corp Hgb Conc. 32.7 g/dL (33.0-37.0); Mean Corpuscular Hgb 30.9 pg (27.0-31.0); Mean Corpuscular Volume 94.6 fL (81.0-99.0); Mean Platelet Volume 10.2 fL (7.4-10.4); Nucleated Red Blood Cells % 0 %; Platelet Count 197 10^3/uL (130-400); Red Blood Cell Count 3.88 10^6/uL (4.20-5.40); Red Cell Dist. Width 12.6 % (11.5-14.5)
[2024-05-09] MEDS: TYLENOL 1000 MG PO (19:34)
[2024-05-09] MEDS: NSS 1000 IV (19:34)
[2024-05-09 19:40] LABS: Lactic Acid 1.3 mmol/L (0.7-2.0)
[2024-05-09 19:44] LABS: Blood Urea Nitrogen 13 mg/dl (7-17); Calcium 9.2 mg/dl (8.4-10.2); Carbon Dioxide 28 mmol/L (22-30); Chloride 102 mmol/L (98-107); Glucose 105 mg/dl (70-99); Sodium 138 mmol/L (135-145); eGFR > 60.00
[2024-05-09 19:57] LABS: COVID-19 Antigen Negative (Negative)
[2024-05-09 20:00] VITALS: BP 174/91
[2024-05-09 20:40] LABS: ALT (SGPT) < 10 U/L (0-35); AST (SGOT) 20 U/L (14-36); Albumin 3.8 g/dl (3.5-5.0); Alkaline Phosphatase 70 U/L (38-126); Blood Urea Nitrogen 12 mg/dl (7-17); Calcium 8.8 mg/dl (8.4-10.2); Carbon Dioxide 27 mmol/L (22-30); Chloride 103 mmol/L (98-107); Glucose 105 mg/dl (70-99); Potassium 4.2 mmol/L (3.5-5.1); Sodium 136 mmol/L (135-145); Total Bilirubin 0.8 mg/dl (0.2-1.3); Total Protein 6.3 g/dl (6.3-8.2); eGFR > 60.00
[2024-05-09 21:00] VITALS: BP 153/83
[2024-05-09 21:17] LABS: Urine Albumin Negative (Neg - Trace); Urine Bilirubin Negative (Negative); Urine Character Clear (Clear); Urine Color Yellow; Urine Glucose Negative (Negative); Urine Ketone Negative (Negative); Urine Leukocyte Negative (Negative); Urine Nitrite Negative (Negative); Urine Occult Blood Negative (Negative); Urine Specific Gravity 1.015 (<1.030); Urine Urobilinogen Negative (Neg - 1+)
[2024-05-09] MEDS: ZOSYN 50 IV (21:57)
--- NOTE | 2024-05-09 22:12 | HPS.HSE ---
Family Physician
-
Family Physician:
Chief Complaint
-
Respiratory complaints
History of Present Illness
83-year-old woman with a past medical history of
hypertension,
hyperlipidemia,
chronic back and neck pain
presents because of lethargy, cough and decreased p.o. intake. stated that around this afternoon the patient seemed to the sick. Of note she had a urinary tract infection recently, but today the patient has not been complaining of any
urinary symptoms. does note that he himself had mild URI-like symptoms earlier in the week but he took some DayQuil and has been feeling better. Patient had flu and COVID vaccines this year. Patient is not able to provide any further
history due to acuity. At baseline patient she uses a wheelchair and walker. In ER she received antibiotics.
Medical History
Past Medical History
Past Medical History: Reports Other
Additional Past Medical History:
Moderate tricuspid regurgitation
Chronic pain syndrome
Spinal stenosis, cervical region
Overactive bladder
Primary generalized (osteo)arthritis
Dupuytren's contracture of both hands
Peptic ulcer disease
Paroxysmal atrial fibrillation
Right atrial dilation
Chronic use of opiate for therapeutic purpose
Pulmonary hypertension
Cervicalgia
Hx of fracture of right hip
Osteopenia of multiple sites
Major depressive disorder, single episode, mild
Constipation, unspecified constipation type
Essential (primary) hypertension
Mixed hyperlipidemia
Labile blood pressure
DDD (degenerative disc disease), cervical
Lumbar radiculopathy
custodial (current) use of anticoagulants
Past Surgical History: Reports Other
Additional Past Surgical History:
See above
Social History
Unable to obtain full social history at this time due to: Acuity
Tobacco: Non-smoker
Alcohol: None
Personal:
Living: With Family
Family History
Family History: Not pertinent
Allergies / Home Medications
Allergies reflects when Allergies were last updated in [email or web address].
Home Medications with original date entered in [email or web address]
Allergy/Medication List:
Allergies
Allergy/AdvReac Type Severity Reaction Status Date / Time
duloxetine HCl Allergy DIZZY Verified 03/02/24 19:10
[From Cymbalta]
oxycodone Allergy dizzy Verified 03/02/24 19:10
Home Medications
simvastatin 20 mg tablet 20 mg PO QPM High Cholesterol 01/01/14
cholecalciferol (vitamin D3) 50 mcg (2,000 unit) tablet (Vitamin D3) 50 mcg PO DAILY Supplement 01/04/23
cyanocobalamin (vitamin B-12) 1,000 mcg tablet (Vitamin B-12) 1,000 mcg PO DAILY Supplement 01/04/23
apixaban 5 mg tablet (Eliquis) 5 mg PO BID 30 days #60 tabs 01/07/23
metoprolol succinate 100 mg tablet,extended release 24 hr 100 mg PO NOON Blood Pressure 10/22/23
pantoprazole 40 mg tablet,delayed release 40 mg PO DAILY Gastrointestinal Issue 10/22/23
docusate sodium 100 mg capsule 100 mg PO BID #0 caps 11/05/23
gabapentin 300 mg capsule 300 mg PO TID #0 caps 11/05/23
tamsulosin 0.4 mg capsule 0.4 mg PO HS Urinary Issue 01/04/24
therapeutic multivitamin 1 tab PO DAILY Supplement 01/04/24
trazodone 50 mg tablet 50 mg PO HS Sleep 01/04/24
lidocaine 4 % topical patch 1 patch topical DAILY pain #0 ea 01/10/24
lisinopril 10 mg tablet 10 mg PO DAILY 30 days #30 tabs 01/10/24
melatonin 5 mg tablet 5 mg PO HSPRN PRN Sleep #0 tabs 01/10/24
sennosides 8.6 mg tablet (Senna Laxative) 8.6 mg PO BID #0 tabs 01/10/24
tramadol 50 mg tablet 50 mg PO Q6HPRN PRN moderate severe pain #10 tabs 01/10/24
calcium 600 mg (as carbonate)-vit D3 20 mcg (800 unit) chewable tablet (Caltrate plus D) 1 tab PO DAILY Supplement 03/02/24
cefuroxime axetil 500 mg tablet 500 mg PO BID 10 days #20 tabs 03/06/24
Review of Systems
-
Unable to obtain full review of systems at this time due to: Acuity
History Source: Patient
A 12 point ROS was completed and negative except as noted: Yes
Physical Exam
Vital Signs
Vital Signs
Temp Pulse Resp BP Pulse Ox
103 F H 87 18 153/83 95
05/09/24 21:30 05/09/24 21:30 05/09/24 21:30 05/09/24 21:00 05/09/24 21:30
Physical Exam
General: Well Developed, Well Nourished, Appears in Distress and Pain
HEENT: Nose Appears Normal and Ears Appear Normal
Respiratory: Wheezes and Decreased Breath Sounds
Cardiac: S1/S2 and Regular Rhythm
GI: Soft and Non Distended
Musculoskeletal: No Clubbing, No Cyanosis and No Edema
Skin: Warm and Dry
Neuro: Awake and Alert
Psych: Confused and Anxious
Laboratory Results
-
05/09/24 19:12
05/09/24 20:07
Laboratory Results
Lactic Acid Cancelled 05/09/24 23:15
Total Bilirubin 0.8 mg/dl (0.2-1.3) 05/09/24 20:07
AST 20 U/L (14-36) 05/09/24 20:07
ALT < 10 U/L (0-35) 05/09/24 20:07
Alkaline Phosphatase 70 U/L (38-126) 05/09/24 20:07
Data Reviewed
-
Lab Data: Labs Reviewed by me
Impression/Plan
-
IMPRESSION:
83 woman with generalized distress, cough, fever. CXR read pending. No obvious source identified yet.
PLAN:
1. h/o exposure to URI, likely viral bronchitis given overall story
Antibiotics given in ED - hold further abx unless source is better defined
Supportive care
If not better in am, consider pulmonary consult
2. Very complex PMH:
Moderate tricuspid regurgitation
Chronic pain syndrome
Spinal stenosis, cervical region
Overactive bladder
Primary generalized (osteo)arthritis
Dupuytren's contracture of both hands
Peptic ulcer disease
Paroxysmal atrial fibrillation
Right atrial dilation
Chronic use of opiate for therapeutic purpose
Pulmonary hypertension
Cervicalgia
Hx of fracture of right hip
Osteopenia of multiple sites
Major depressive disorder
Constipation,
Essential (primary) hypertension
Mixed hyperlipidemia
Labile blood pressure
DDD (degenerative disc disease), cervical
Lumbar radiculopathy
termite exterminator helper (current) use of anticoagulants
-Continue home meds
Full code
VCD for DVTp
[2024-05-09] MEDS: VANCOCIN 540 MG IV (22:25)
[2024-05-09 23:00] VITALS: BP 146/69
[2024-05-09 23:41] VITALS: BP 157/68
[2024-05-09 23:42] VITALS: BP 157/68
[2024-05-10] VITALS: BP 134/70
[2024-05-10] MEDS: TYLENOL 650 MG PO ×2 (01:34→15:25)
[2024-05-10 07:00] VITALS: BP 149/74
[2024-05-10 07:18] LABS: Hematocrit 33.6 % (37.0-47.0); Mean Corp Hgb Conc. 32.7 g/dL (33.0-37.0); Mean Corpuscular Hgb 31.3 pg (27.0-31.0); Mean Corpuscular Volume 95.5 fL (81.0-99.0); Mean Platelet Volume 10.5 fL (7.4-10.4); Platelet Count 168 10^3/uL (130-400); Red Blood Cell Count 3.52 10^6/uL (4.20-5.40); Red Cell Dist. Width 12.7 % (11.5-14.5); White Blood Cell Count 5.8 10^3/uL (4.8-10.8)
[2024-05-10 07:41] LABS: Blood Urea Nitrogen 10 mg/dl (7-17); Calcium 8.7 mg/dl (8.4-10.2); Carbon Dioxide 28 mmol/L (22-30); Chloride 104 mmol/L (98-107); Estimated Creatinine Clearance 43 ml/min; Glucose 96 mg/dl (70-99); Sodium 140 mmol/L (135-145); eGFR > 60.00
[2024-05-10] MEDS: VITAMIN D3 (cholecalciferol) 50 MCG PO (08:32)
[2024-05-10] MEDS: VITAMIN B-12 1000 MCG PO (08:32)
[2024-05-10] MEDS: SENOKOT 8.6 MG PO ×2 (08:32→19:56)
[2024-05-10] MEDS: NEURONTIN 300 MG PO ×3 (08:32→22:04)
[2024-05-10] MEDS: COLACE 100 MG PO ×2 (08:32→19:56)
[2024-05-10] MEDS: ELIQUIS 5 MG PO ×2 (08:32→19:56)
[2024-05-10] MEDS: THERAGRAN 1 TABLET PO (08:32)
[2024-05-10] MEDS: OSCAL 500 + D 500 MG PO (08:32)
[2024-05-10] MEDS: PROTONIX 40 MG PO (08:32)
[2024-05-10] MEDS: ZESTRIL 10 MG PO (08:34)
[2024-05-10] MEDS: ULTRAM 50 MG PO ×2 (08:42→18:12)
--- NOTE | 2024-05-10 12:45 | W.PN.HOSP.TC ---
Addendum entered and electronically signed by Omid Oh MD 05/10/24 15:33:
Pro-Zak negative, suspect viral etiology. If continues to spike fever then will need ID evaluation
Original Note:
Today's Communication/Plan
-
monitor vitals
see plan
Check Pro-Zak, if high then will need hernandez CT
Follow fever curve; if continues then will need ID evaluation
DuoNebs
Discussed with over the phone
Assessment / Plan
Assessment / Plan
General: Well Developed, Well Nourished, Appears in Distress and Pain
HEENT: Nose Appears Normal and Ears Appear Normal
Respiratory: Wheezes and Decreased Breath Sounds
Cardiac: S1/S2 and Regular Rhythm
GI: Soft and Non Distended
Musculoskeletal:No Edema
Neuro: Awake and Alert
Psych: Confused
Cough with recent exposure as has similar symptoms could be secondary to possible bronchitis
duonebs
Check Pro-Zak, hold off on any further antibiotics at this time
Fever noted, follow fever curve. Blood culture pending. Check Pro-Zak and if it is high then we will hernandez scan. If fever continues then will need ID evaluation
History of UTI/pyelo-, urine culture negative
covid,flu neg
Paroxysmal atrial fibrillation
Continue metoprolol, Eliquis
TME likely secondary to infection given fevers
Continue to monitor
History of lumbar compression fracture
Hypertension
Continue metoprolol, lisinopril
History of neuropathy
On gabapentin
History of PUD, GERD
PPI
Chronic pain syndrome
DVT prophylaxis
Eliquis
Full code
Anticipated Discharge: Within 24 hours
Subjective/Interval History
-
Date of Service: May 10, 2024
Denies chest pain
Objective Data
-
Labs:
Laboratory Results
05/10/24
07:04
WBC 5.8
Hgb 11.0 L
Hct 33.6 L
Plt Count 168
Sodium 140
Potassium 4.0
Chloride 104
Carbon Dioxide 28
BUN 10
Creatinine 0.9
Glucose 96
Calcium 8.7
Vital Signs:
Vital Signs
Temp Pulse Resp BP Pulse Ox
98.1 F 90 18 149/74 93
05/10/24 07:00 05/10/24 08:34 05/10/24 07:00 05/10/24 08:34 05/10/24 07:00
I&O
05/09/24 05/10/24 05/11/24
06:59 06:59 06:59
Output Total 200 / 200
Balance -200 / -200
[2024-05-10] MEDS: TOPROL XL 100 MG PO (13:00)
[2024-05-10] MEDS: DUONEB 3 ML INH (13:11)
[2024-05-10] MEDS: ROBITUSSIN 200 MG PO ×3 (13:48→22:06)
[2024-05-10 14:35] LABS: Procalcitonin < 0.05 ng/ml (0.0-0.25)
[2024-05-10 15:20] VITALS: BP 138/62
[2024-05-10] MEDS: LIPITOR 10 MG PO (18:11)
[2024-05-10 19:55] VITALS: BP 146/70
[2024-05-10 20:06] VITALS: BP 146/70
[2024-05-10] MEDS: DESYREL 50 MG PO (22:04)
[2024-05-10] MEDS: FLOMAX 0.4 MG PO (22:04)
[2024-05-10] MEDS: NEURONTIN 100 MG PO (22:04)
--- NOTE | 2024-05-10 23:21 | PTCARENOTE ---
report given to Sherly Proctor
[2024-05-11] VITALS (15 sets, daily range): BP systolic 91–161; BP diastolic 52–108
[2024-05-11] MEDS: ULTRAM 50 MG PO (06:13)
[2024-05-11 06:50] LABS: % Basophils 0.2 % (0-2); % Eosinophils 0.2 % (0-6); % Lymphocytes 30.3 % (20.5-51.1); % Monocytes 11.1 % (1.7-9.3); % Neutrophils 58.2 % (42.2-75.2); Absolute Lymphocytes 1.4 10^3/uL (1.2-3.4); Absolute Monocytes 0.5 10^3/uL (0.1-0.6); Absolute Neutrophils 2.7 10^3/uL (1.4-6.5); Hematocrit 35.6 % (37.0-47.0); Hemoglobin 11.7 g/dL (12.0-16.0); Mean Corp Hgb Conc. 32.9 g/dL (33.0-37.0); Mean Corpuscular Hgb 31.4 pg (27.0-31.0); Mean Corpuscular Volume 95.4 fL (81.0-99.0); Mean Platelet Volume 10.5 fL (7.4-10.4); Nucleated Red Blood Cells % 0 %; Platelet Count 170 10^3/uL (130-400); Red Blood Cell Count 3.73 10^6/uL (4.20-5.40); Red Cell Dist. Width 12.6 % (11.5-14.5); White Blood Cell Count 4.6 10^3/uL (4.8-10.8)
[2024-05-11 07:18] LABS: Blood Urea Nitrogen 12 mg/dl (7-17); Calcium 9.1 mg/dl (8.4-10.2); Carbon Dioxide 28 mmol/L (22-30); Chloride 100 mmol/L (98-107); Estimated Creatinine Clearance 48 ml/min; Glucose 90 mg/dl (70-99); Potassium 4.2 mmol/L (3.5-5.1); Sodium 137 mmol/L (135-145); eGFR > 60.00
--- NOTE | 2024-05-11 07:54 | W.PN.HOSP.TC ---
Today's Communication/Plan
-
dc
Assessment / Plan
Assessment / Plan
83yo F with PMHx HTN, HLD, DJD, A.fib on Eliquis, MDD came with generalized malaise and poor oral intake, found mild cough with negative procalcitonin and negative for pneumonia chest XR. UA neg for UTI. Managed for acute viral upper respiratory
infection. COVID-19 and Influenza PCR neg. Feeling improved, medically stable for d/c with recommendations to improve oral intake, remain hydrated, warm tea. Follow up with PCP in 1 week.
A/P:
#Acute upper respiratory infection
most likely viral
symptomatic treatment
#Mild leukopenia with monocytosis
supportive of viral etiology
repeat CBC with PCP in 2-3 weeks
#Essential HTN
#Neuropathy
#JESSIE
#Afib, unspecified on ELiquis
#GERD
#Pulmonary HTN
#Chronic urinary retention
#HLD
cont home meds
DVT ppx Eliquis
Full code
I have spent at least 36min reviewing chart, test results, communication with consultants and direct patient care
Anticipated Discharge: Today
Subjective/Interval History
-
Date of Service: May 11, 2024
Objective Data
-
Labs:
Laboratory Results
05/11/24
06:14
WBC 4.6 L
Hgb 11.7 L
Hct 35.6 L
Plt Count 170
Sodium 137
Potassium 4.2
Chloride 100
Carbon Dioxide 28
BUN 12
Creatinine 0.8
Glucose 90
Calcium 9.1
Vital Signs:
Vital Signs
Temp Pulse Resp BP Pulse Ox
98.5 F 68 20 141/72 95
05/11/24 03:24 05/11/24 00:27 05/11/24 00:27 05/11/24 00:27 05/11/24 00:31
I&O
05/10/24 05/11/24 05/12/24
06:59 06:59 06:59
Output Total 200 / 200 600 / 600
Balance -200 / -200 -600 / -600
Review of Systems
-
History Source: Patient
All other systems: Reviewed and negative
Musculoskeletal: Reports Joint Pain
Physical Exam
-
General: No Apparent Distress and Comfortable
HEENT: Normocephalic and Atraumatic
Respiratory: Clear to Auscultation
Cardiac: Regular Rhythm
GI: Soft
Neuro: Awake, Oriented and AO x 3
Psych: Calm
--- NOTE | 2024-05-11 08:00 | W.DCSUMMARY ---
Discharge Summary
Discharge Data
Date of Admission: 05/09/24
Date of Discharge: 05/11/24
-
Pending Results: No
Hospital Course
83yo F with PMHx HTN, HLD, DJD, A.fib on Eliquis, MDD came with generalized malaise and poor oral intake, found mild cough with negative procalcitonin and negative for pneumonia chest XR. UA neg for UTI. Managed for acute viral upper respiratory
infection. COVID-19 and Influenza PCR neg. Feeling improved, medically stable for d/c with recommendations to improve oral intake, remain hydrated, warm tea. Follow up with PCP in 1 week. Mentation on baseline and afebrile on the day of discharge
I have spent 36min discharging the patient
Patient was managed for:
#Acute upper respiratory infection
#Mild leukopenia with monocytosis
#Essential HTN
#Neuropathy
#JESSIE
#Afib, unspecified on ELiquis
#GERD
#Pulmonary HTN
#Chronic urinary retention
#HLD
Discharge Plan
-
Patient Disposition: Home (Routine Discharge)
Discharge Diagnosis/Procedures: Acute viral respiratory infection
Diet: 2 Gram Sodium
Activity: No restrictions
Blood Work: repeat CBC with PCP in 2-3 weeks
Referrals:
Concepcion Hamlin MD [Family Provider] - in less than 1 week
Prescriptions:
New
dextromethorphan-guaifenesin [Robitussin Honey Max DM] 5-100 mg/5 mL liquid
10 ml PO Q6H PRN (Reason: Cough) Qty: 100 0RF
ascorbic acid (vitamin C) [Vitamin C] 1,000 mg tablet
500 mg PO DAILY Qty: 30 0RF
Continued
simvastatin 20 MG tablet
20 mg PO QPM
cyanocobalamin (vitamin B-12) [Vitamin B-12] 1,000 mcg Tablet
1,000 mcg PO DAILY
cholecalciferol (vitamin D3) [Vitamin D3] 50 mcg (2,000 unit) Tablet
50 mcg PO DAILY
Eliquis 5 mg Tablet
5 mg PO BID 30 Days Qty: 60 0RF
metoprolol succinate 100 mg tablet extended release 24 hr
100 mg PO NOON
gabapentin 300 mg Capsule
300 mg PO TID Qty: 0 0RF
therapeutic multivitamin Tablet
1 tab PO DAILY
tamsulosin 0.4 mg capsule
0.4 mg PO HS
lisinopril 10 mg Tablet
10 mg PO DAILY 30 Days Qty: 30 0RF
sennosides [Senna Laxative] 8.6 mg tablet
8.6 mg PO BID Qty: 0 0RF
Rx Instructions:
Hold if diarrhea
melatonin 5 mg Tablet
5 mg PO HSPRN PRN (Reason: Sleep) Qty: 0 0RF
tramadol 50 MG tablet
50 mg PO Q6HPRN PRN (Reason: moderate severe pain) Qty: 10 0RF
Caltrate 600 plus D 600 mg-20 mcg (800 unit) Tablet,Chewable
1 tab PO DAILY
lidocaine 4 % Adhesive Patch,Medicated
1 patch TOPICAL DAILYPRN PRN (Reason: lower back)
pantoprazole [Protonix] 20 mg Tablet,Delayed Release (Dr/Ec)
20 mg PO DAILY
gabapentin 100 mg Capsule
100 mg PO HS
Discharge Orders:
Discharge Patient (As Directed); Ordered 05/11/24
Ordered By: Soto Ndiaye
Discharge Date and Time
Print Language: MALDIVIAN
--- NOTE | 2024-05-11 09:34 | VNURNOTE ---
Chart reviewed.� Patient is current with [facility] nursing.� Will continue to follow hospital course and DC plans.
--- NOTE | 2024-05-11 09:49 | CM ---
Addendum entered by Laurel James RN 05/11/24 10:22:
CM updateed [facility] with plan for discharge today.
PLAN: home with [facility]
Original Note:
CM reviewed medical records. CM spoke with patient's COMBAT ENGINEER Annalisa via phone. She stated that will provide transportation for patient. CM will await call back from .
[2024-05-11] MEDS: SENOKOT 8.6 MG PO ×2 (10:49→19:49)
[2024-05-11] MEDS: ELIQUIS 5 MG PO ×2 (10:49→19:49)
[2024-05-11] MEDS: ZESTRIL 10 MG PO (10:49)
[2024-05-11] MEDS: NEURONTIN 300 MG PO ×3 (10:49→22:07)
[2024-05-11] MEDS: VITAMIN D3 (cholecalciferol) 50 MCG PO (10:50)
[2024-05-11] MEDS: THERAGRAN 1 TABLET PO (10:50)
[2024-05-11] MEDS: VITAMIN B-12 1000 MCG PO (10:50)
[2024-05-11] MEDS: COLACE 100 MG PO ×2 (10:50→19:49)
[2024-05-11] MEDS: PROTONIX 40 MG PO (10:50)
[2024-05-11] MEDS: OSCAL 500 + D 500 MG PO (10:50)
[2024-05-11] MEDS: ROBITUSSIN 200 MG PO ×3 (10:51→22:07)
--- NOTE | 2024-05-11 11:45 | PTCARENOTE ---
RN was getting patient ready to transfer to wheelchair for discharge when patient suddenly said she could not see and began leaning to the left side. Then patient stopped responding to nurse, became acutely lethargic/drowsy. Pt placed promptly on
heart monitor and vitals signs, ekg, and blood glucose were checked. Rapid response was initiated. Pt's blood pressure was slightly lower than earlier in shift- see flow sheets. All other vitals and tests were stable. Pt has bilateral strength, and
voiced regaining eye sight. No acute neurological deficits were found on assessment. Pt states she wants to go home. Care team explaining to patient they will run some more tests before discharge. LR bolus and CT scan of head ordered. Pt's
and grandson updated by MD via phone.
[2024-05-11 11:48] LABS: Glucose - Point of Care 150 mg/dl (70-99)
[2024-05-11] MEDS: TOPROL XL PO (12:15)
--- NOTE | 2024-05-11 12:23 | W.PN.UPDATE ---
Addendum entered and electronically signed by Soto Ndiaye MD 05/11/24 16:21:
Concern for pronounced weakness - cont on D5NS hydration and schedule PT/OT
Original Note:
Update Note
Progress Note Update
PAtient had syncopal event with transient drop in BP when getting in the wheelchair. BP improved without intervention in 20min. . Most likely 2/2 generalized malaise and vaso-vagal. Cannot exclude Neurontin as a reason too. Poor oral intake -
hydration emphasized to son and father - they verbalized understanding. DIscussed assisted living or rehab - and patient declined. High risk for readmission, would benefit from reahb, but since declining - reasonable to hydrate, check CT
head (since patient is on Eliquis) and if WNL - still proceed with discharge
[2024-05-11 12:41] LABS: Calcium 8.4 mg/dl (8.4-10.2); Carbon Dioxide 29 mmol/L (22-30); Chloride 98 mmol/L (98-107); Estimated Creatinine Clearance 55 ml/min; Glucose 140 mg/dl (70-99); Sodium 136 mmol/L (135-145); eGFR > 60.00
[2024-05-11] MEDS: LR 500 IV (13:00)
[2024-05-11 13:07] LABS: Blood Urea Nitrogen 9 mg/dl (7-17)
[2024-05-11] MEDS: ROBITUSSIN PO (13:34)
--- NOTE | 2024-05-11 16:22 | W.PN.UPDATE ---
Update Note
Progress Note Update
note for billing purposs only. See same day PN
[2024-05-11] MEDS: LIPITOR 10 MG PO (17:17)
--- NOTE | 2024-05-11 17:50 | CM ---
CM reviewed medical records. Plan for PT/OT to evaluate patient for placement.
[2024-05-11] MEDS: D5LR 1000 IV (20:15)
[2024-05-11] MEDS: FLOMAX 0.4 MG PO (22:07)
[2024-05-11] MEDS: DESYREL 50 MG PO (22:07)
[2024-05-11] MEDS: NEURONTIN 100 MG PO (22:07)
[2024-05-12] VITALS (7 sets, daily range): BP systolic 153–163; BP diastolic 72–91; PULSE 84–92
[2024-05-12 05:38] LABS: ALT (SGPT) 11 U/L (0-35); AST (SGOT) 24 U/L (14-36); Albumin 3.3 g/dl (3.5-5.0); Alkaline Phosphatase 63 U/L (38-126); Blood Urea Nitrogen 9 mg/dl (7-17); Calcium 8.7 mg/dl (8.4-10.2); Carbon Dioxide 31 mmol/L (22-30); Chloride 97 mmol/L (98-107); Estimated Creatinine Clearance 55 ml/min; Glucose 117 mg/dl (70-99); Potassium 3.6 mmol/L (3.5-5.1); Sodium 137 mmol/L (135-145); Total Bilirubin 0.8 mg/dl (0.2-1.3); Total Protein 5.8 g/dl (6.3-8.2); eGFR > 60.00
[2024-05-12 05:41] LABS: % Basophils 0.3 % (0-2); % Eosinophils 0.3 % (0-6); % Immature Granulocytes 0.3 % (0-0.5); % Lymphocytes 38.3 % (20.5-51.1); % Monocytes 12.5 % (1.7-9.3); % Neutrophils 48.3 % (42.2-75.2); Absolute Lymphocytes 1.2 10^3/uL (1.2-3.4); Absolute Monocytes 0.4 10^3/uL (0.1-0.6); Absolute Neutrophils 1.5 10^3/uL (1.4-6.5); Hematocrit 34.2 % (37.0-47.0); Hemoglobin 11.3 g/dL (12.0-16.0); Nucleated Red Blood Cells % 0 %; Platelet Count 165 10^3/uL (130-400); Red Blood Cell Count 3.64 10^6/uL (4.20-5.40); Red Cell Dist. Width 12.2 % (11.5-14.5); White Blood Cell Count 3.1 10^3/uL (4.8-10.8)
--- NOTE | 2024-05-12 09:20 | PTCARENOTE ---
Patient vital signs taken for the morning, pt is working with PT/O now, voiding on toilet in restroom, continues to be incontinent at times. Plan is for patient to move to overflow unit created in [facility] soon.
--- NOTE | 2024-05-12 09:28 | W.PN.HOSP.TC ---
Today's Communication/Plan
-
Continue supportive care.
PT eval.
Continue current cardiovascular medication regimen.
Wean off IV fluids if sufficient oral intake.
Placement to rehab.
Assessment / Plan
Assessment / Plan
83yo F with PMHx HTN, HLD, DJD, A.fib on Eliquis, MDD came with generalized malaise and poor oral intake, found mild cough with negative procalcitonin and negative for pneumonia chest XR. UA neg for UTI. Managed for acute viral upper respiratory
infection. COVID-19 and Influenza PCR neg. Feeling improved, medically stable for d/c with recommendations to improve oral intake, remain hydrated, warm tea. Follow up with PCP in 1 week.
A/P:
#Acute upper respiratory infection
most likely viral
symptomatic treatment
#Mild leukopenia with monocytosis
supportive of viral etiology
repeat CBC with PCP in 2-3 weeks
Acute TME secondary to acute viral illness and fever
#Essential HTN
#Neuropathy
# Chronic pain syndrome
#Afib, unspecified on ELiquis
#GERD
#Pulmonary HTN
#Chronic urinary retention
#HLD
cont home meds
DVT ppx Eliquis
Full code
Physical therapy assessment with max assist.
Patient with multiple medical problems now with acute viral illness and severe deconditioning will require placement to rehab.
Appropriate for inpatient level of care
Anticipated Discharge: Within 24 hours
Subjective/Interval History
-
Date of Service: May 12, 2024
Objective Data
-
Labs:
Laboratory Results
05/12/24
04:53
WBC 3.1 L
Hgb 11.3 L
Hct 34.2 L
Plt Count 165
Sodium 137
Potassium 3.6
Chloride 97 L
Carbon Dioxide 31 H
BUN 9
Creatinine 0.7
Glucose 117 H
Calcium 8.7
Total Bilirubin 0.8
AST 24
ALT 11
Alkaline Phosphatase 63
Vital Signs:
Vital Signs
Temp Pulse Resp BP Pulse Ox
98.8 F 80 27 153/72 97
05/12/24 07:20 05/12/24 09:00 05/12/24 08:15 05/12/24 03:51 05/12/24 03:50
I&O
05/11/24 05/12/24 05/13/24
06:59 06:59 06:59
Intake Total 980 / 980
Output Total 600 / 600
Balance -600 / -600 980 / 980
Physical Exam
-
General: No Apparent Distress and Comfortable
HEENT: Normocephalic and Atraumatic
Respiratory: Clear to Auscultation
Cardiac: Regular Rhythm
GI: Soft
Neuro: Awake, Oriented and AO x 3
Psych: Calm
--- NOTE | 2024-05-12 09:50 | CM ---
Addendum entered by Laurel James RN 05/12/24 15:40:
[facility] can no longer accept for tomorrow discharge. CM will continue bed search.
Addendum entered by Laurel James RN 05/12/24 10:58:
[facility] is able to accept tomorrow 2/. CM will plan for [employer] authorization.
Addendum entered by Laurel James RN 05/12/24 10:47:
CM reviewed medical records. [facility] tomorrow. CM will placed additional referrals via [facility] to find a bed for today.
Original Note:
Patient is medically ready for discharge. Plan for SNF. CM sent referral via [facility] to [facility].
[2024-05-12] MEDS: NEURONTIN 300 MG PO ×3 (11:05→22:39)
[2024-05-12] MEDS: ELIQUIS 5 MG PO ×2 (11:05→19:50)
[2024-05-12] MEDS: COLACE 100 MG PO (11:05)
[2024-05-12] MEDS: ZESTRIL 10 MG PO (11:06)
[2024-05-12] MEDS: THERAGRAN 1 TABLET PO (11:06)
[2024-05-12] MEDS: PROTONIX 40 MG PO (11:06)
[2024-05-12] MEDS: VITAMIN D3 (cholecalciferol) 50 MCG PO (11:06)
[2024-05-12] MEDS: ROBITUSSIN PO ×5 (11:06→22:39)
[2024-05-12] MEDS: SENOKOT 8.6 MG PO (11:06)
[2024-05-12] MEDS: VITAMIN B-12 1000 MCG PO (11:06)
[2024-05-12] MEDS: TOPROL XL 100 MG PO (11:07)
[2024-05-12] MEDS: D5LR 1000 IV ×2 (11:07→22:45)
--- NOTE | 2024-05-12 11:09 | CM ---
Addendum entered by Laurel James RN 05/12/24 11:24:
CM sppke with patient's son who is in agreement with placement at [facility].
Original Note:
Patient accepted at [facility] NPI# [id number]
Accepting MD Dr Bowman, NPI# [id number]
[employer] authorization # [id number]
Approved Skilled rehab
Approved start date 05/13/24, LCD/NRD 05/19/24
Updates to fax# [phone]
[facility] Liaison updated, bed not available until tomorrow after 1 pm.
[2024-05-12] MEDS: OSCAL 500 + D 500 MG PO (11:13)
--- NOTE | 2024-05-12 16:15 | CM ---
Addendum entered by Laurel James RN 05/12/24 16:31:
[facility] is able to accept for tomorrow.
[facility]
Dr. Jeff Panchal
[id number]
[facility]
Report
[phone]

Original Note:
CM spoke with patient and in room. Patient and are agreeable to [facility]. CM called Pieter at [facility] to confirm acceptance. CM will await call back from Admission Coordinator.
[2024-05-12] MEDS: LIPITOR 10 MG PO (17:17)
[2024-05-12] MEDS: SENOKOT PO (19:48)
[2024-05-12] MEDS: COLACE PO (19:48)
[2024-05-12] MEDS: DESENEX/MITRAZOL/ZEASORB 1 APPLIC TOPICAL (19:49)
[2024-05-12] MEDS: FLOMAX 0.4 MG PO (22:38)
[2024-05-12] MEDS: NEURONTIN 100 MG PO (22:39)
[2024-05-12] MEDS: DESYREL 50 MG PO (22:39)
[2024-05-13 07:35] VITALS: BP 165/89
[2024-05-13] MEDS: ZESTRIL 10 MG PO (09:41)
[2024-05-13] MEDS: OSCAL 500 + D 500 MG PO (09:41)
[2024-05-13] MEDS: NEURONTIN 300 MG PO ×2 (09:41→16:49)
[2024-05-13] MEDS: VITAMIN B-12 1000 MCG PO (09:41)
[2024-05-13] MEDS: PROTONIX 40 MG PO (09:41)
[2024-05-13] MEDS: THERAGRAN 1 TABLET PO (09:41)
[2024-05-13] MEDS: VITAMIN D3 (cholecalciferol) 50 MCG PO (09:41)
[2024-05-13] MEDS: ELIQUIS 5 MG PO (09:41)
[2024-05-13] MEDS: COLACE PO (09:41)
[2024-05-13] MEDS: ROBITUSSIN PO ×2 (09:42→12:59)
[2024-05-13] MEDS: SENOKOT PO (09:42)
[2024-05-13] MEDS: DESENEX/MITRAZOL/ZEASORB 1 APPLIC TOPICAL (09:42)
--- NOTE | 2024-05-13 10:04 | CM ---
Addendum entered by Elisha Sharif 05/13/24 13:59:
at bedside - updated regarding transport
Transport at 1730 -
Facility made aware
Pt and aware
Plan - transfer to [facility]
R - [phone]
- [phone]
Addendum entered by Elisha Sharif 05/13/24 11:39:
Updated Pieter at [facility] of auth information
Called pts ([phone]) to discuss transfer to [facility] - on VM requesting return call
Pt given IMM - will review
Transport to be arranged
Plan - transfer to [facility]
R - [phone]
- [phone]
Original Note:
Called [facility] [phone] to change accepting facility
Spoke with Taylor
Facility changed to [facility]
[employer] authorization # [id number]
Approved Skilled rehab
Approved start date 05/13/24, LCD/NRD 05/19/24
Updates to fax# [phone]
--- NOTE | 2024-05-13 11:14 | W.DS.TRANS ---
DC Summary - Electric Sign Wirer
-
Discharge Instructions:
Discharge Diagnosis/Procedures Acute viral respiratory infection
Diet 2 Gram Sodium
Activity No restrictions
Blood Work repeat CBC with PCP in 2-3 weeks
Instructions:
Stand-Alone Forms:
Changes to Home Medications: No
Discharge Medications:
DC Medications w/original date entered in [employer]
simvastatin 20 mg tablet 20 mg PO QPM High Cholesterol 01/01/14
cholecalciferol (vitamin D3) 50 mcg (2,000 unit) tablet (Vitamin D3) 50 mcg PO DAILY Supplement 01/04/23
cyanocobalamin (vitamin B-12) 1,000 mcg tablet (Vitamin B-12) 1,000 mcg PO DAILY Supplement 01/04/23
apixaban 5 mg tablet (Eliquis) 5 mg PO BID 30 days #60 tabs 01/07/23
metoprolol succinate 100 mg tablet,extended release 24 hr 100 mg PO NOON Blood Pressure 10/22/23
gabapentin 300 mg capsule 300 mg PO TID #0 caps 11/05/23
tamsulosin 0.4 mg capsule 0.4 mg PO HS Urinary Issue 01/04/24
therapeutic multivitamin 1 tab PO DAILY Supplement 01/04/24
lisinopril 10 mg tablet 10 mg PO DAILY 30 days #30 tabs 01/10/24
melatonin 5 mg tablet 5 mg PO HSPRN PRN Sleep #0 tabs 01/10/24
sennosides 8.6 mg tablet (Senna Laxative) 8.6 mg PO BID #0 tabs 01/10/24
calcium 600 mg (as carbonate)-vit D3 20 mcg (800 unit) chewable tablet (Caltrate plus D) 1 tab PO DAILY Supplement 03/02/24
gabapentin 100 mg capsule 100 mg PO HS Mental Health/Anxiety 05/10/24
lidocaine 4 % topical patch 1 patch topical DAILYPRN PRN lower back 05/10/24
pantoprazole 20 mg tablet,delayed release (Protonix) 20 mg PO DAILY Gastrointestinal Issue 05/10/24
ascorbic acid (vitamin C) 1,000 mg tablet (Vitamin C) 500 mg (1/2 x 1,000 mg) PO DAILY #30 tabs 05/11/24
dextromethorphan-guaifenesin 5 mg-100 mg/5 mL oral liquid (Robitussin Honey Max DM) 10 ml PO Q6H PRN Cough #100 mL 05/11/24
gabapentin 100 mg capsule 200 mg (2 x 100 mg) PO TID #90 caps 05/11/24
tramadol 50 mg tablet 25 mg (1/2 x 50 mg) PO Q6HPRN PRN moderate severe pain #10 tabs 05/11/24
Home Medication Changes
Pending Results: No
[2024-05-13] MEDS: TOPROL XL 100 MG PO (12:58)
[2024-05-13 15:22] VITALS: BP 162/93
[2024-05-13] MEDS: TYLENOL 650 MG PO (16:49)
[2024-05-13] MEDS: ROBITUSSIN 200 MG PO (16:49)
[2024-05-13] MEDS: LIPITOR 10 MG PO (16:49)
== END 2024-05-13 17:48 | DRG 152 ==
LOC: LDRP 09:55
PROVIDERS: Internal Medicine; Physician Assistant Medical; ADMITTING PHYSICIAN Internal Medicine; ATTENDING PHYSICIAN Internal Medicine; EMERGENCY PHYSICIAN Student in an Organized Health Care Education/Training Program; FAMILY PHYSICIAN Family Medicine
DX: J06.9 Acute upper respiratory infection, unspecified (principal); G92.8 Other toxic encephalopathy; F32.0 Major depressive disorder, single episode, mild; J20.8 Acute bronchitis due to other specified organisms; I10 Essential (primary) hypertension; G89.4 Chronic pain syndrome; E78.2 Mixed hyperlipidemia; I25.10 Atherosclerotic heart disease of native coronary artery without angina pectoris; I07.1 Rheumatic tricuspid insufficiency; M48.02 Spinal stenosis, cervical region; N32.81 Overactive bladder; M15.0 Primary generalized (osteo)arthritis; M72.0 Palmar fascial fibromatosis [Dupuytren]; I48.0 Paroxysmal atrial fibrillation; D72.819 Decreased white blood cell count, unspecified; D72.821 Monocytosis (symptomatic); G62.9 Polyneuropathy, unspecified; K21.9 Gastro-esophageal reflux disease without esophagitis; I27.20 Pulmonary hypertension, unspecified; M85.89 Other specified disorders of bone density and structure, multiple sites; K59.00 Constipation, unspecified; M54.16 Radiculopathy, lumbar region; Z98.1 Arthrodesis status; Z79.01 Long term (current) use of anticoagulants; Z88.5 Allergy status to narcotic agent; Z88.8 Allergy status to other drugs, medicaments and biological substances; Z87.11 Personal history of peptic ulcer disease; Z11.52 Encounter for screening for COVID-19
CPT/HCPCS: 70450; 71045; 80048; 80053; 81003; 82962; 83605; 84145; 85025; 85027; 87040; 87502; 87811; 93005; 94640; 96361; 96365; 96366; 96367; 97167; 99285

== ENCOUNTER 2024-06-05 12:31 | Emergency (ER) | payer OTHER, SELFPAY ==
[2024-06-05 12:34] VITALS: BP 114/66
[2024-06-05 13:10] LABS: ALT (SGPT) 10 U/L (0-35); AST (SGOT) 18 U/L (14-36); Alkaline Phosphatase 87 U/L (38-126); Blood Urea Nitrogen 13 mg/dl (7-17); Calcium 9.6 mg/dl (8.4-10.2); Carbon Dioxide 30 mmol/L (22-30); Chloride 101 mmol/L (98-107); Glucose 146 mg/dl (70-99); Potassium 4.5 mmol/L (3.5-5.1); Sodium 138 mmol/L (135-145); Total Bilirubin 1.2 mg/dl (0.2-1.3)
[2024-06-05 13:11] LABS: % Basophils 0.2 % (0-2); % Immature Granulocytes 0.4 % (0-0.5); % Lymphocytes 13.3 % (20.5-51.1); % Monocytes 4.9 % (1.7-9.3); % Neutrophils 81.2 % (42.2-75.2); Absolute Lymphocytes 1.5 10^3/uL (1.2-3.4); Absolute Monocytes 0.5 10^3/uL (0.1-0.6); Absolute Neutrophils 8.9 10^3/uL (1.4-6.5); Hematocrit 39.5 % (37.0-47.0); Hemoglobin 12.7 g/dL (12.0-16.0); Mean Corp Hgb Conc. 32.2 g/dL (33.0-37.0); Mean Corpuscular Volume 96.3 fL (81.0-99.0); Mean Platelet Volume 9.9 fL (7.4-10.4); Nucleated Red Blood Cells % 0 %; Platelet Count 247 10^3/uL (130-400); Red Cell Dist. Width 12.9 % (11.5-14.5); White Blood Cell Count 10.9 10^3/uL (4.8-10.8)
[2024-06-05 15:14] VITALS: BP 118/62
--- NOTE | 2024-06-05 18:05 | ED.GENMED ---
History of Present Illness
General
Chief Complaint: Urinary Symptoms
Source: patient and family
Exam Limitations: none
Time Seen by Provider: 06/05/24 17:06
Nursing documentation reviewed up to this point in time: agreed with
History of Present Illness
History of Present Illness:
pt is a 83 y/o F with h/o htn, hld
here with
pt usually gets up and walks with assistance, or uses wheelchair but can transfer to a commode next to bed overnight and when her checked on her this am she had no urine int he commode which was unusual and was incontinent in the bed. she
had temp 99.8
the pt's called her PCP and he said to bring her to the ER
pt has had UTIs a few times before and they are wondering if she has another one
she is genearlly weak
had a slight cough
no vomiting, diarrhea, abdominal pain, sore throat, chest pain, shortness of breath
she didn't eat anything today because of all of this but is hungry.
Past History
Past History
ED Past Medical History: Arrthythmia, CAD, HTN, Hypercholesterolemia and Psychiatric
ED Past Surgical History: Orthopedic (cerv fusion) and Other
Social History
Tobacco: Non-smoker
Alcohol: None
Drug: None
Personal:
Living: with family
Employment: Retired
Family History
Family History: Other (Noncontributory)
Review of Systems
Review of Systems
Allergies reviewed?: Yes
All Other Systems: Not applicable
Phy Exam
Physical Exam
Physical Exam:
GENERAL: Alert , in no apparent distress nontoxic-appearing
EYE: pupils equal and reactive
NECK: Supple
ENT: o/p clr, mmm.
CARDIAC: Regular rate and rhythm .
LUNGS: Clear breath sounds bilaterally, no acute respiratory distress, no wheezes/rales/rhonchi
ABDOMEN: Soft, without focal tenderness, no r/g, no cvat, normal bowel sounds
NEUROLOGICAL: Alert and oriented, no focal neuro deficits no weakness appreciated
SKIN: Warm and dry, skin intact.
MUSCULOSKELETAL: No edema, well perfused. neg herminio's sign
PSYCH: Normal and appropriate interaction.
Course
Orders/Labs/Results
Orders:
Orders
06/05/24 12:47
Complete Blood Count/With Diff Urgent
Comprehensive Metabolic Panel Urgent
06/05/24 17:49
Bladder Scan- Treatment ONCE
Straight cath- Treatment ONCE
06/05/24 18:49
COVID-19 Antigen Urgent
Source: Nasal Swab
Urinalysis Reflex To Culture Urgent
Date Specimen was Collected: 06/05/24
Time Specimen was Collected: 12:38
Urine Microscopic Reflex Cult Urgent
Influenza A+B Rapid Molecular Urgent
TANA Source: Nasal Swab
Specimen Description:
Urine Culture Urgent
TANA Source: U
Specimen Description:
Date Specimen was Collected: 06/05/24
Time Specimen was Collected: 12:38
06/05/24 20:05
CefTRIAXone [Rocephin] 1,000 mg IV NOW STA
06/05/24 20:49
Cefdinir [Omnicef] 300 mg PO NOW STA
Abnormal Lab Results
06/05/24 06/05/24
12:47 18:49
WBC 10.9 H 10^3/uL
(4.8-10.8)
RBC 4.10 L 10^6/uL
(4.20-5.40)
MCHC 32.2 L g/dL
(33.0-37.0)
Absolute Neuts (auto) 8.9 H 10^3/uL
(1.4-6.5)
Neutrophils % 81.2 H %
(42.2-75.2)
Lymphocytes % 13.3 L %
(20.5-51.1)
Glucose 146 H mg/dl
(70-99)
Ur Occult Blood Reflex 2+ A
(Negative)
Urine Nitrite (Reflex) Positive A
(Negative)
Leukocyte Esterase Rfl 3+ A
(Negative)
Urine RBC 3-6 A /HPF
(0-2)
Urine WBC (Reflex) 80-90 A /HPF
(0-5)
Urine Bacteria (Reflex) Many A
(Negative)
Urine Albumin (Reflex) 2+ A
(Neg - Trace)
06/05/24 12:47
06/05/24 12:47
Vital Signs
Initial and Last Documented VS:
Initial Vital Signs
Temp Pulse Resp BP Pulse Ox
37.0 C 103 18 114/66 99
06/05/24 12:34 06/05/24 12:34 06/05/24 12:34 06/05/24 12:34 06/05/24 12:34
Last Documented Vital Signs
Temp Pulse Resp BP Pulse Ox
36.8 C 68 18 154/73 96
06/05/24 18:52 06/05/24 18:52 06/05/24 18:52 06/05/24 18:52 06/05/24 18:52
MDM/Problems Addressed
Differential Diagnosis Includes:
Viral syndrome, pneumonia, UTI, electrolyte abnormality
MDM/Problems Addressed:
83-year-old female this morning woke up and had some urinary incontinence and was generally weak with a temperature of 99.8.
She since has not had a documented fever and does not feel ill. She has had UTIs previously and her primary care doctor could not see her so they recommended she come to the ER. On exam I repeated her temperature which was normal. Her exam was
unremarkable. She can move all her extremities. She is awake and alert and oriented
Patient has previous hospitalization for pyelonephritis/toxic metabolic encephalopathy but this time she does appear quite well.
Patient is
White count is minimally elevated and there is a left shift but she has normal creatinine
Her UA is nitrate positive with WBCs and many bacteria, consistent with suspected UTI. Patient was able to get up and use a walker and take a couple steps per usual. She is afebrile and I do not believe she is septic at this time. Will discharge
home with cefdinir pending culture, previous culture reviewed, E. coli, sensitive
*Critical Care Note
Total Time (30-74mins, 75-104mins- exclusive of procedures): Not Applicable
ED Attending Note
-
Portions of this chart may have been created with voice recognition software.� Occasional wrong word or��sound alike� substitutions may have occurred due to the inherent limitations of voice recognition software.
Discharge Plan
Departure
Patient Disposition: Home (Routine Discharge)
Date of Disposition: 06/05/24
Time of Disposition: 20:06
Patient with high blood pressure during this ER visit?: No
Condition: Fair
Covid-19: Not Applicable
Discharge Problem:
UTI (urinary tract infection)
Instructions: Urinary Tract Infection, Adult (DC)
Prescriptions:
New
cefdinir 300 mg capsule
300 mg PO Q12H 7 Days Qty: 14 0RF
No Action
simvastatin 20 MG tablet
20 mg PO QPM
cyanocobalamin (vitamin B-12) [Vitamin B-12] 1,000 mcg Tablet
1,000 mcg PO DAILY
cholecalciferol (vitamin D3) [Vitamin D3] 50 mcg (2,000 unit) Tablet
50 mcg PO DAILY
Eliquis 5 mg Tablet
5 mg PO BID 30 Days Qty: 60 0RF
metoprolol succinate 100 mg tablet extended release 24 hr
100 mg PO NOON
therapeutic multivitamin Tablet
1 tab PO DAILY
tamsulosin 0.4 mg capsule
0.4 mg PO HS
lisinopril 10 mg Tablet
10 mg PO DAILY 30 Days Qty: 30 0RF
sennosides [Senna Laxative] 8.6 mg tablet
8.6 mg PO BID Qty: 0 0RF
Rx Instructions:
Hold if diarrhea
melatonin 5 mg Tablet
5 mg PO HSPRN PRN (Reason: Sleep) Qty: 0 0RF
Caltrate 600 plus D 600 mg-20 mcg (800 unit) Tablet,Chewable
1 tab PO DAILY
lidocaine 4 % Adhesive Patch,Medicated
1 patch TOPICAL DAILYPRN PRN (Reason: lower back)
pantoprazole [Protonix] 20 mg Tablet,Delayed Release (Dr/Ec)
20 mg PO DAILY
dextromethorphan-guaifenesin [Robitussin Honey Max DM] 5-100 mg/5 mL liquid
10 ml PO Q6H PRN (Reason: Cough) Qty: 100 0RF
ascorbic acid (vitamin C) [Vitamin C] 1,000 mg tablet
500 mg PO DAILY Qty: 30 0RF
tramadol 50 MG tablet
25 mg PO Q6HPRN PRN (Reason: moderate severe pain) Qty: 10 0RF
gabapentin 300 mg Capsule
300 mg PO TID Qty: 90 0RF
Referrals:
Concepcion Hamlin MD [Family Provider] - Follow up in 2-3 days
Activity Restrictions/Additional Instructions:
Ellen has a urinary tract infection. Starting tomorrow give her cefdinir twice a day for 7 days.
Watch her for worsening symptoms like high fever, weakness, inability to get out of bed, vomiting, not drinking, not urinating etc. and return as needed. Otherwise follow-up with the urologist because of these recurrent UTIs.
Interventions
Interventions:
*Risk Screen - Suicide Last Done: 06/05/24 12:34
*General Assessment Last Done: 06/05/24 12:34
*ED COVID-19 Vaccine History Last Done: 06/05/24 12:34
*Nursing Disposition Last Done: 06/05/24 21:03
ED-Female Genitourinary Assessment Last Done: 06/05/24 18:52
Discharge Date and Time
Discharge Date/Time: 06/05/24 21:03
Print Language: FAROESE
[2024-06-05 18:52] VITALS: BP 154/73; BMI 26.6
[2024-06-05 19:01] LABS: Urine Albumin 2+ (Neg - Trace); Urine Bilirubin Negative (Negative); Urine Character Clear (Clear); Urine Color Yellow; Urine Glucose Negative (Negative); Urine Ketone Negative (Negative); Urine Leukocyte 3+ (Negative); Urine Nitrite Positive (Negative); Urine Occult Blood 2+ (Negative); Urine Specific Gravity 1.005 (<1.030); Urine Urobilinogen Negative (Neg - 1+)
[2024-06-05 19:08] LABS: Urine Squamous Cell >30 /LPF (Few)
[2024-06-05 19:09] LABS: Urine Bacteria Many (Negative); Urine White Cell 80-90 /HPF (0-5)
[2024-06-05 19:18] LABS: COVID-19 Antigen Negative (Negative)
[2024-06-05] MEDS: OMNICEF 300 MG PO (20:54)
== END 2024-06-05 21:03 | disposition home or self-care (01) ==
LOC: EMR 12:31
PROVIDERS: Emergency Medicine; Physician Assistant; EMERGENCY PHYSICIAN Emergency Medicine; FAMILY PHYSICIAN Family Medicine
DX: N39.0 Urinary tract infection, site not specified (principal); I10 Essential (primary) hypertension; E78.00 Pure hypercholesterolemia, unspecified; I25.10 Atherosclerotic heart disease of native coronary artery without angina pectoris; Z87.440 Personal history of urinary (tract) infections
CPT/HCPCS: 99283; 80053; 81003; 81015; 85025; 87077; 87086; 87186; 87502; 87811

== ENCOUNTER 2024-06-19 10:19 | Emergency (ER) | payer OTHER, SELFPAY ==
[2024-06-19 10:20] VITALS: BP 167/100
[2024-06-19 11:42] VITALS: BP 150/102; BMI 25.6
[2024-06-19 12:00] VITALS: BP 141/72
[2024-06-19 12:09] LABS: % Basophils 0.3 % (0-2); % Eosinophils 1.9 % (0-6); % Immature Granulocytes 0.3 % (0-0.5); % Lymphocytes 24.2 % (20.5-51.1); % Monocytes 6.7 % (1.7-9.3); % Neutrophils 66.6 % (42.2-75.2); Absolute Eosinophils 0.1 10^3/uL (0-0.7); Absolute Lymphocytes 1.4 10^3/uL (1.2-3.4); Absolute Monocytes 0.4 10^3/uL (0.1-0.6); Hematocrit 41.7 % (37.0-47.0); Hemoglobin 13.5 g/dL (12.0-16.0); Mean Corp Hgb Conc. 32.4 g/dL (33.0-37.0); Mean Corpuscular Hgb 30.9 pg (27.0-31.0); Mean Corpuscular Volume 95.4 fL (81.0-99.0); Mean Platelet Volume 9.9 fL (7.4-10.4); Nucleated Red Blood Cells % 0 %; Platelet Count 292 10^3/uL (130-400); Red Blood Cell Count 4.37 10^6/uL (4.20-5.40); Red Cell Dist. Width 12.8 % (11.5-14.5); White Blood Cell Count 5.9 10^3/uL (4.8-10.8)
--- NOTE | 2024-06-19 12:11 | ED.GENMED ---
History of Present Illness
General
Chief Complaint: Abdominal Symptoms
Source: patient
Exam Limitations: none
Time Seen by Provider: 06/19/24 11:39
Nursing documentation reviewed up to this point in time: agreed with
History of Present Illness
History of Present Illness:
83yr old female presents to the ED for evaluation.
She reports for the past 2 days she has had multiple sets of diarrhea. She does feel lightheaded and dizzy. Her has had similar symptoms recently . She denies any fevers.
Denies any nausea/ vomiting . Denies abdominal pain.
Past History
Past History
ED Past Medical History: Arrthythmia, CAD, HTN, Hypercholesterolemia and Psychiatric
ED Past Surgical History: Orthopedic (cerv fusion) and Other
Social History
Tobacco: Non-smoker
Alcohol: None
Drug: None
Personal:
Living: with family
Employment: Retired
Family History
Family History: Other (Noncontributory)
Review of Systems
Review of Systems
Allergies reviewed?: Yes
All Other Systems: ROS reviewed and negative except as documented in HPI and ROS
Constitutional: Reports fatigue; Denies fever or chills
Respiratory: Reports no symptoms
Cardiac: Reports no symptoms
ABD/GI: Reports diarrhea; Denies abdominal pain, nausea, vomiting or black stools
: Reports no symptoms; Denies dysuria, frequency, flank pain, incontinence, difficulty voiding or urgency
Musculoskeletal: Reports no symptoms
Skin: Reports no symptoms
Neurological: Reports no symptoms
Psychiatric: Reports no symptoms
Phy Exam
General Physical Exam
General Presentation: no apparent distress
General age: appears stated age
General Skin: warm and dry
General Habitus: normal
General Mental: alert
General Hydration: appears well hydrated
Cardiovascular Exam
Cardiovascular Exam: regular rate/rhythm and no murmur
Pulmonary Exam
Pulmonary Exam: lungs clear and no respiratory distress
Neurological Exam
Neurological Exam: alert and oriented x3
Musculoskeletal Exam
Musculoskeletal Exam: full ROM
Skin Exam
Skin Exam: normal color and warm/dry
Psychiatric Exam
Psychiatric Exam: normal mood/affect
Course
Orders/Labs/Results
Orders:
Orders
06/19/24 11:46
Complete Blood Count/With Diff Urgent
Comprehensive Metabolic Panel Urgent
Lipase Urgent
06/19/24 12:21
0.9% Sodium Chloride 1000 ml [Nss] 1,000 ml IV BOLUS
Abnormal Lab Results
06/19/24
11:46
MCHC 32.4 L g/dL
(33.0-37.0)
Creatinine 1.1 H mg/dL
(0.6-1.0)
Glucose 107 H mg/dl
(70-99)
06/19/24 11:46
06/19/24 11:46
Vital Signs
Initial and Last Documented VS:
Initial Vital Signs
Temp Pulse Resp BP Pulse Ox
98.5 F 74 16 167/100 95
06/19/24 10:20 06/19/24 10:20 06/19/24 10:20 06/19/24 10:20 06/19/24 10:20
Last Documented Vital Signs
Temp Pulse Resp BP Pulse Ox
98.5 F 74 16 150/102 97
06/19/24 10:20 06/19/24 10:20 06/19/24 10:20 06/19/24 11:42 06/19/24 11:45
Beam Warper consulted with Physician
Beam Warper consulted with physician?: Yes
Name of Physician Consulted: Karma
MDM/Problems Addressed
MDM/Problems Addressed:
Symptoms are consistent with viral syndrome diarrhea. Patient denies any UTI symptoms.
She denies any fever chills and is afebrile she denies any abdominal pain denies any nausea vomiting. She did not give any stool specimens here in the ER. She is awake alert no acute distress given fluids here in the ER feeling better .she denies
any chest pain shortness of breath palpitations. Likely viral syndrome mild dehydration. Patient feels well to go home feels better walking(has been using her walker to walk) and stable for discharge home.
*Pulse Oximetry
Patient hypoxic: no
*Critical Care Note
Total Time (30-74mins, 75-104mins- exclusive of procedures): Not Applicable
ED Attending Note
-
Portions of this chart may have been created with voice recognition software.� Occasional wrong word or��sound alike� substitutions may have occurred due to the inherent limitations of voice recognition software.
Discharge Plan
Departure
Patient Disposition: Home (Routine Discharge)
Date of Disposition: 06/19/24
Time of Disposition: 14:45
Patient with high blood pressure during this ER visit?: Yes
Condition: Fair
Discharge Problem:
Diarrhea
Instructions: Diarrhea in teens and adults
Prescriptions:
No Action
simvastatin 20 MG tablet
20 mg PO QPM
cyanocobalamin (vitamin B-12) [Vitamin B-12] 1,000 mcg Tablet
1,000 mcg PO DAILY
cholecalciferol (vitamin D3) [Vitamin D3] 50 mcg (2,000 unit) Tablet
50 mcg PO DAILY
Eliquis 5 mg Tablet
5 mg PO BID 30 Days Qty: 60 0RF
metoprolol succinate 100 mg tablet extended release 24 hr
100 mg PO NOON
therapeutic multivitamin Tablet
1 tab PO DAILY
tamsulosin 0.4 mg capsule
0.4 mg PO HS
lisinopril 10 mg Tablet
10 mg PO DAILY 30 Days Qty: 30 0RF
sennosides [Senna Laxative] 8.6 mg tablet
8.6 mg PO BID Qty: 0 0RF
Rx Instructions:
Hold if diarrhea
melatonin 5 mg Tablet
5 mg PO HSPRN PRN (Reason: Sleep) Qty: 0 0RF
Caltrate 600 plus D 600 mg-20 mcg (800 unit) Tablet,Chewable
1 tab PO DAILY
lidocaine 4 % Adhesive Patch,Medicated
1 patch TOPICAL DAILYPRN PRN (Reason: lower back)
pantoprazole [Protonix] 20 mg Tablet,Delayed Release (Dr/Ec)
20 mg PO DAILY
dextromethorphan-guaifenesin [Robitussin Honey Max DM] 5-100 mg/5 mL liquid
10 ml PO Q6H PRN (Reason: Cough) Qty: 100 0RF
ascorbic acid (vitamin C) [Vitamin C] 1,000 mg tablet
500 mg PO DAILY Qty: 30 0RF
tramadol 50 MG tablet
25 mg PO Q6HPRN PRN (Reason: moderate severe pain) Qty: 10 0RF
gabapentin 300 mg Capsule
300 mg PO TID Qty: 90 0RF
cefdinir 300 mg capsule
300 mg PO Q12H 7 Days Qty: 14 0RF
Referrals:
Concepcion Hamlin MD [Family Provider] -
Activity Restrictions/Additional Instructions:
As discussed stay well-hydrated. Follow-up close with your family doctor in the next several days .
return if any worsening of symptoms.
Symptoms are likely viral syndrome.
Interventions
Interventions:
*Risk Screen - Suicide Last Done: 06/19/24 10:20
*Neglect/Abuse Screening Last Done: 06/19/24 10:20
*ED- Fall Risk Assessment Last Done: 06/19/24 11:52
*ED COVID-19 Vaccine History Last Done: 06/19/24 11:52
[place]-Qspnkq-Jjqnpifabm Assessment Last Done: 06/19/24 11:48
Discharge Date and Time
Print Language: SLOVAK
[2024-06-19 12:21] LABS: ALT (SGPT) 12 U/L (0-35); AST (SGOT) 20 U/L (14-36); Albumin 4.1 g/dl (3.5-5.0); Alkaline Phosphatase 93 U/L (38-126); Blood Urea Nitrogen 10 mg/dl (7-17); Calcium 10.2 mg/dl (8.4-10.2); Carbon Dioxide 30 mmol/L (22-30); Chloride 103 mmol/L (98-107); Estimated Creatinine Clearance 33 ml/min; Glucose 107 mg/dl (70-99); Lipase 149 U/L (23-300); Potassium 4.8 mmol/L (3.5-5.1); Sodium 140 mmol/L (135-145); Total Bilirubin 0.6 mg/dl (0.2-1.3); Total Protein 7.3 g/dl (6.3-8.2); eGFR 49.86
[2024-06-19 13:00] VITALS: BP 128/103
[2024-06-19] MEDS: NSS 1000 IV (13:07)
== END 2024-06-19 15:31 | disposition home or self-care (01) ==
LOC: EMR 10:19
PROVIDERS: Student in an Organized Health Care Education/Training Program; EMERGENCY PHYSICIAN Emergency Medicine; FAMILY PHYSICIAN Family Medicine
DX: R19.7 Diarrhea, unspecified (principal); I25.10 Atherosclerotic heart disease of native coronary artery without angina pectoris; I10 Essential (primary) hypertension; E78.00 Pure hypercholesterolemia, unspecified
CPT/HCPCS: 99283; 80053; 83690; 85025

== ENCOUNTER → 2024-09-21 11:05 | Outpatient (REF) | payer OTHER, SELFPAY ==
[2024-09-21 12:32] LABS: % Basophils 0.4 % (0-2); % Immature Granulocytes 0.3 % (0-0.5); % Lymphocytes 19.5 % (20.5-51.1); % Monocytes 6.4 % (1.7-9.3); % Neutrophils 72.4 % (42.2-75.2); Absolute Eosinophils 0.1 10^3/uL (0-0.7); Absolute Lymphocytes 1.5 10^3/uL (1.2-3.4); Absolute Monocytes 0.5 10^3/uL (0.1-0.6); Absolute Neutrophils 5.6 10^3/uL (1.4-6.5); Hematocrit 39.7 % (37.0-47.0); Hemoglobin 12.8 g/dL (12.0-16.0); Mean Corp Hgb Conc. 32.2 g/dL (33.0-37.0); Mean Corpuscular Hgb 30.9 pg (27.0-31.0); Mean Corpuscular Volume 95.9 fL (81.0-99.0); Mean Platelet Volume 10.8 fL (7.4-10.4); Nucleated Red Blood Cells % 0 %; Platelet Count 239 10^3/uL (130-400); Red Blood Cell Count 4.14 10^6/uL (4.20-5.40); Red Cell Dist. Width 12.2 % (11.5-14.5); White Blood Cell Count 7.8 10^3/uL (4.8-10.8)
[2024-09-21 14:50] LABS: ALT (SGPT) 12 U/L (0-35); AST (SGOT) 19 U/L (14-36); Albumin 4.5 g/dl (3.5-5.0); Alkaline Phosphatase 71 U/L (38-126); Blood Urea Nitrogen 15 mg/dl (7-17); Calcium 9.9 mg/dl (8.4-10.2); Carbon Dioxide 31 mmol/L (22-30); Chloride 106 mmol/L (98-107); Glucose 98 mg/dl (70-99); Potassium 4.8 mmol/L (3.5-5.1); Sodium 144 mmol/L (135-145); Total Bilirubin 0.9 mg/dl (0.2-1.3); Total Protein 7.6 g/dl (6.3-8.2)
[2024-09-21 16:20] LABS: TSH Reflex To Free T4 3.12 uIU/ml (0.47-4.68)
== END ==
LOC: REG 11:05
PROVIDERS: ATTENDING PHYSICIAN Internal Medicine Cardiovascular Disease; FAMILY PHYSICIAN Family Medicine
DX: F32.0 Major depressive disorder, single episode, mild (principal); I48.0 Paroxysmal atrial fibrillation; I10 Essential (primary) hypertension; E78.2 Mixed hyperlipidemia; R73.02 Impaired glucose tolerance (oral); R07.81 Pleurodynia; R09.89 Other specified symptoms and signs involving the circulatory and respiratory systems
CPT/HCPCS: 36415; 71046; 80053; 83036; 84443; 85025

== ENCOUNTER → 2024-10-02 15:40 | Outpatient (REF) | payer OTHER, SELFPAY | LOC: RAD 15:40 | PROVIDERS: ATTENDING PHYSICIAN Family Medicine | DX: M79.661 Pain in right lower leg (principal) | CPT/HCPCS: 93971 ==

== ENCOUNTER 2024-10-18 13:11 | Emergency (ER) | payer OTHER, SELFPAY ==
[2024-10-18 13:33] VITALS: BP 141/93
--- NOTE | 2024-10-18 16:22 | ED.GENMED ---
History of Present Illness
<BO Bui - Last Filed: 10/18/24 19:18>
General
Chief Complaint: Musculo-Skeletal Complaint
Source: patient
Exam Limitations: none
Time Seen by Provider: 10/18/24 16:08
Nursing documentation reviewed up to this point in time: agreed with
History of Present Illness
History of Present Illness:
Patient is an 83-year-old female with past medical history of A-fib on Eliquis hypertension presents from home for evaluation of fall. at bedside reports last night around 6 PM she was using the bathroom and fell and hit her head in the
bathtub. He was able to get her up himself she had no loss of consciousness. She was awake. This morning however she was complaining of pain to the back of the neck and head area which prompted him to come to the ER. She is on Eliquis and did
take it this am.
Past History
<BO Bui - Last Filed: 10/18/24 19:18>
Past History
ED Past Medical History: Arrthythmia, CAD, HTN, Hypercholesterolemia and Psychiatric
ED Past Surgical History: Orthopedic (cerv fusion) and Other
Social History
Tobacco: Non-smoker
Alcohol: None
Drug: None
Personal:
Living: with family
Employment: Retired
Family History
Family History: Other (Noncontributory)
Phy Exam
<BO Bui - Last Filed: 10/18/24 19:18>
General Physical Exam
General Presentation: no apparent distress
General age: appears stated age
General Skin: warm and dry
General Habitus: elderly
General Mental: alert
General Hydration: appears well hydrated
Cardiovascular Exam
Cardiovascular Exam: regular rate/rhythm, no murmur and normal peripheral pulses
Pulmonary Exam
Pulmonary Exam: lungs clear and no respiratory distress
Gastrointestinal Exam
Gastrointestinal Exam: non tender and soft
Neurological Exam
Neurological Exam: alert, oriented x3, no motor deficits and no sensory deficits
Musculoskeletal Exam
Musculoskeletal Exam: other (No obvious head injury on exam tenderness throughout the posterior head and neck; full range of motion all extremities)
Skin Exam
Skin Exam: normal color and warm/dry
Psychiatric Exam
Psychiatric Exam: normal mood/affect
Course
<BO Bui - Last Filed: 10/18/24 19:18>
Orders/Labs/Results
Orders:
Orders
10/18/24 13:37
CT Cervical Spine W/o Iv Contr Urgent
Comment:
Reason For Exam: Trauma, fall into bathtub
CT Head W/o Iv Contrast Urgent
Comment:
Reason For Exam: Trauma, fall into bathtub
10/18/24 16:28
Cardiac Monitoring- Treatment ONCE
IV Insert/Care/Rem.- Treatment PRN
10/18/24 16:44
Prothrombin Time Urgent
10/18/24 16:45
Complete Blood Count/With Diff Urgent
Comprehensive Metabolic Panel Urgent
10/18/24 16:46
Cervical Collar- Treatment ONCE
Collar Type: Hard Cervical Collar
Morphine Sulfate 2 mg IV NOW STA
10/18/24 16:47
CR Chest Portable - 1 View Urgent
Comment:
Reason For Exam: fall
Reason Study Needs to be Portable: Patient Unstable
Pelvis, 1 or 2 Views CR [CR Pelvis - 1 Or 2 Views ] Urgent
Comment:
Reason For Exam: fall
10/18/24 16:57
Prothrombin Complex(Pcc),Human [Kcentra] 2,076 unit Empty Viaflex Container 100 ml [Viaflex Empty Container] 80 ml IV NOW
10/18/24 17:01
Electrocardiogram (*1) Stat
Reason for Study: Other
Other Reason for Exam: chest pain
EKG- Treatment ONCE
10/18/24 17:08
HydrALAZINE [Apresoline] 10 mg IV NOW STA
Abnormal Lab Results
10/18/24 10/18/24
16:44 16:45
RBC 4.09 L 10^6/uL
(4.20-5.40)
MCHC 32.9 L g/dL
(33.0-37.0)
MPV 10.5 H fL
(7.4-10.4)
PT 15.7 H Sec
(11.4-14.6)
10/18/24 16:45
10/18/24 16:45
Vital Signs
Initial and Last Documented VS:
Initial Vital Signs
Temp Pulse Resp BP Pulse Ox
99.4 F 80 16 141/93 95
10/18/24 13:33 10/18/24 13:33 10/18/24 13:33 10/18/24 13:33 10/18/24 13:33
Last Documented Vital Signs
Temp Pulse Resp BP Pulse Ox
99.4 F 96 14 183/89 95
10/18/24 13:33 10/18/24 17:39 10/18/24 17:39 10/18/24 17:42 10/18/24 17:31
Acid Pump Operator consulted with Physician
Acid Pump Operator consulted with physician?: Yes (Roxanne )
Name of Physician Consulted: roxanne
<Jorden Gallego, DO - Last Filed: 10/18/24 17:03>
Orders/Labs/Results
Orders:
Orders
10/18/24 13:37
CT Cervical Spine W/o Iv Contr Urgent
Comment:
Reason For Exam: Trauma, fall into bathtub
CT Head W/o Iv Contrast Urgent
Comment:
Reason For Exam: Trauma, fall into bathtub
10/18/24 16:28
Cardiac Monitoring- Treatment ONCE
IV Insert/Care/Rem.- Treatment PRN
10/18/24 16:44
Prothrombin Time Urgent
10/18/24 16:45
Complete Blood Count/With Diff Urgent
Comprehensive Metabolic Panel Urgent
10/18/24 16:46
Cervical Collar- Treatment ONCE
Collar Type: Hard Cervical Collar
Morphine Sulfate 2 mg IV NOW STA
10/18/24 16:47
CR Chest Portable - 1 View Urgent
Comment:
Reason For Exam: fall
Reason Study Needs to be Portable: Patient Unstable
Pelvis, 1 or 2 Views CR [CR Pelvis - 1 Or 2 Views ] Urgent
Comment:
Reason For Exam: fall
10/18/24 16:57
Prothrombin Complex(Pcc),Human [Kcentra] 2,076 unit Empty Viaflex Container 100 ml [Viaflex Empty Container] 80 ml IV NOW
10/18/24 17:01
Electrocardiogram (*1) Stat
Reason for Study: Other
Other Reason for Exam: chest pain
EKG- Treatment ONCE
10/18/24 17:08
HydrALAZINE [Apresoline] 10 mg IV NOW STA
Abnormal Lab Results
10/18/24 10/18/24
16:44 16:45
RBC 4.09 L 10^6/uL
(4.20-5.40)
MCHC 32.9 L g/dL
(33.0-37.0)
MPV 10.5 H fL
(7.4-10.4)
PT 15.7 H Sec
(11.4-14.6)
10/18/24 16:45
10/18/24 16:45
Vital Signs
Initial and Last Documented VS:
Initial Vital Signs
Temp Pulse Resp BP Pulse Ox
99.4 F 80 16 141/93 95
10/18/24 13:33 10/18/24 13:33 10/18/24 13:33 10/18/24 13:33 10/18/24 13:33
Last Documented Vital Signs
Temp Pulse Resp BP Pulse Ox
99.4 F 96 14 183/89 95
10/18/24 13:33 10/18/24 17:39 10/18/24 17:39 10/18/24 17:42 10/18/24 17:31
<BO Bui - Last Filed: 10/18/24 19:18>
MDM/Problems Addressed
Differential Diagnosis Includes:
Not limited to skull fracture contusion head injury intracranial hemorrhage cervical spine fracture restrained verse contusion
MDM/Problems Addressed:
As documented patient is an 83-year-old female on Eliquis for A-fib brought by . Patient fell yesterday in the bathtub last evening at 6 PM. She complained of a pain in her head and neck today. CAT scan was done upon arrival which does
show minimal acute subdural hematoma Blaine/blood products along the anterior falx cerebri measuring 2 mm in thickness. Patient with no nausea vomiting or loss of consciousness since yesterday. Cervical spine CAT scan negative. Case discussed with
ED physician. Patient is on Eliquis and took a dose today. Kcentra ordered. Family wishes to transfer to [facility]. I spoke with [facility] transfer team Dr. Jarrell who accepts patient as a level 2 trauma.
I did speak with patient's son over the phone Dr. Abbott who is a neurosurgeon [place] and did discuss with him patient's diagnosis and plan for transfer and treatment.
Patient's blood pressure is elevated she did not take her meds today. Patient was treated with IV hydralazine ordered by ED physician
Chronic conditions affecting care:
On Eliquis for A-fib
<BO Bui - Last Filed: 10/18/24 19:18>
*Radiology
Radiology exam reviewed: radiology read reviewed
*Pulse Oximetry
SaO2: 95
Oxygen Mode of Delivery: Room air
Patient hypoxic: no
<Jorden Gallego DO - Last Filed: 10/18/24 17:03>
*Radiology
Radiology exam reviewed: radiology read reviewed
*Pulse Oximetry
Patient hypoxic: no
*Critical Care Note
Total Time (30-74mins, 75-104mins- exclusive of procedures): 30
ED Attending Note
<BO Bui - Last Filed: 10/18/24 19:18>
-
Portions of this chart may have been created with voice recognition software.� Occasional wrong word or��sound alike� substitutions may have occurred due to the inherent limitations of voice recognition software.
<Jorden Gallego DO - Last Filed: 10/18/24 17:03>
ED Attending Note
Patient seen and examined by attending physician: Yes
I performed the substantive portion of visit, reviewed & personally made and approve the management plan that is documented in note by myself or NEHA.: Yes
ED Attending Note:
With her practitioner, elderly female fell in the tub struck her head and her buttocks, she has a headache and neck pain CT was subdural in the falx, will keep her in collar, check chest and pelvis film reverse her coagulopathy transfer to trauma
center
Discharge Plan
Departure
Patient Disposition: Acute Care Hospital
Date of Disposition: 10/18/24
Time of Disposition: 17:59
Patient with high blood pressure during this ER visit?: Yes
Condition: Fair
Discharge Problem:
Acute subdural hematoma
Prescriptions:
No Action
simvastatin 20 MG tablet
20 mg PO QPM
cyanocobalamin (vitamin B-12) [Vitamin B-12] 1,000 mcg Tablet
1,000 mcg PO DAILY
cholecalciferol (vitamin D3) [Vitamin D3] 50 mcg (2,000 unit) Tablet
50 mcg PO DAILY
Eliquis 5 mg Tablet
5 mg PO BID 30 Days Qty: 60 0RF
metoprolol succinate 100 mg tablet extended release 24 hr
100 mg PO NOON
therapeutic multivitamin Tablet
1 tab PO DAILY
tamsulosin 0.4 mg capsule
0.4 mg PO HS
lisinopril 10 mg Tablet
10 mg PO DAILY 30 Days Qty: 30 0RF
sennosides [Senna Laxative] 8.6 mg tablet
8.6 mg PO BID Qty: 0 0RF
Rx Instructions:
Hold if diarrhea
melatonin 5 mg Tablet
5 mg PO HSPRN PRN (Reason: Sleep) Qty: 0 0RF
Caltrate 600 plus D 600 mg-20 mcg (800 unit) Tablet,Chewable
1 tab PO DAILY
lidocaine 4 % Adhesive Patch,Medicated
1 patch TOPICAL DAILYPRN PRN (Reason: lower back)
pantoprazole [Protonix] 20 mg Tablet,Delayed Release (Dr/Ec)
20 mg PO DAILY
dextromethorphan-guaifenesin [Robitussin Honey Max DM] 5-100 mg/5 mL liquid
10 ml PO Q6H PRN (Reason: Cough) Qty: 100 0RF
ascorbic acid (vitamin C) [Vitamin C] 1,000 mg tablet
500 mg PO DAILY Qty: 30 0RF
tramadol 50 MG tablet
25 mg PO Q6HPRN PRN (Reason: moderate severe pain) Qty: 10 0RF
gabapentin 300 mg Capsule
300 mg PO TID Qty: 90 0RF
cefdinir 300 mg capsule
300 mg PO Q12H 7 Days Qty: 14 0RF
Referrals:
Concepcion Hamlin MD [Family Provider, Family Practice]
Hospital Transfer
Other hospital: [facility]
I certify that the patient requires transfer: Yes
Discussed case with accepting physician: DR Jarrell
Reason for transfer: higher level of care
Interventions
Interventions:
*Risk Screen - Suicide Last Done: 10/18/24 16:36
*General Assessment Last Done: 10/18/24 16:36
*Neglect/Abuse Screening Last Done: 10/18/24 16:36
*Nursing Disposition Last Done: 10/18/24 18:03
ED-Musculoskeletal Assessment Last Done: 10/18/24 16:36
Discharge Date and Time
Discharge Date/Time: 10/18/24 18:05
Print Language: MACEDONIAN
[2024-10-18 16:36] VITALS: BMI 27.4
[2024-10-18 16:49] VITALS: BP 191/92
[2024-10-18] MEDS: MORPHINE SULFATE 2 MG IV (16:49)
[2024-10-18 16:52] LABS: Hematocrit 38.3 % (37.0-47.0); Hemoglobin 12.6 g/dL (12.0-16.0); Mean Corp Hgb Conc. 32.9 g/dL (33.0-37.0); Mean Corpuscular Volume 93.6 fL (81.0-99.0); Nucleated Red Blood Cells % 0 %; Platelet Count 213 10^3/uL (130-400); Red Cell Dist. Width 12.3 % (11.5-14.5)
[2024-10-18 17:00] VITALS: BP 202/87
[2024-10-18 17:02] LABS: INR 1.22; PT 15.7 Sec (11.4-14.6)
[2024-10-18 17:08] VITALS: BP 188/93
[2024-10-18 17:08] LABS: ALT (SGPT) 16 U/L (0-35); AST (SGOT) 25 U/L (14-36); Albumin 4.5 g/dl (3.5-5.0); Alkaline Phosphatase 74 U/L (38-126); Blood Urea Nitrogen 14 mg/dl (7-17); Calcium 9.5 mg/dl (8.4-10.2); Carbon Dioxide 27 mmol/L (22-30); Chloride 105 mmol/L (98-107); Estimated Creatinine Clearance 50 ml/min; Glucose 87 mg/dl (70-99); Potassium 4.5 mmol/L (3.5-5.1); Sodium 140 mmol/L (135-145); Total Protein 7.6 g/dl (6.3-8.2); eGFR > 60.00
[2024-10-18] MEDS: KCENTRA 80 UNIT IV (17:08)
[2024-10-18] MEDS: APRESOLINE 10 MG IV (17:14)
--- NOTE | 2024-10-18 17:17 | PHANOTE ---
10/18/24 med rec tech: she was unable to give med rec.
[2024-10-18 17:42] VITALS: BP 183/89
== END 2024-10-18 18:05 | disposition short-term general hospital (02) ==
LOC: EMR 13:11
PROVIDERS: Nurse Practitioner; EMERGENCY PHYSICIAN Emergency Medicine; FAMILY PHYSICIAN Family Medicine
DX: S06.5XAA Traumatic subdural hemorrhage with loss of consciousness status unknown, initial encounter (principal); Y93.E1 Activity, personal bathing and showering; I10 Essential (primary) hypertension; E78.00 Pure hypercholesterolemia, unspecified; I25.10 Atherosclerotic heart disease of native coronary artery without angina pectoris; I48.91 Unspecified atrial fibrillation; Z79.01 Long term (current) use of anticoagulants
CPT/HCPCS: 99284; 96374; 96375; 70450; 71045; 72125; 72170; 80053; 85025; 85610; 93005; J7168

== ENCOUNTER → 2024-10-28 13:56 | Outpatient (REF) | payer OTHER, SELFPAY | LOC: RAD 13:56 | PROVIDERS: ATTENDING PHYSICIAN Family Medicine | DX: I62.00 Nontraumatic subdural hemorrhage, unspecified (principal) | CPT/HCPCS: 70450 ==

== ENCOUNTER → 2025-02-11 10:13 | Outpatient (REF) | payer OTHER, SELFPAY ==
[2025-02-11 11:20] LABS: Hematocrit 43.0 % (37.0-47.0); Hemoglobin 14.0 g/dL (12.0-16.0); Mean Corp Hgb Conc. 32.6 g/dL (33.0-37.0); Mean Corpuscular Volume 97.1 fL (81.0-99.0); Nucleated Red Blood Cells % 0 %; Platelet Count 210 10^3/uL (130-400); Red Cell Dist. Width 12.6 % (11.5-14.5)
[2025-02-11 12:30] LABS: ALT (SGPT) 17 U/L (0-35); AST (SGOT) 20 U/L (14-36); Albumin 4.6 g/dl (3.5-5.0); Alkaline Phosphatase 61 U/L (38-126); Blood Urea Nitrogen 13 mg/dl (7-17); Calcium 10.0 mg/dl (8.4-10.2); Carbon Dioxide 29 mmol/L (22-30); Chloride 102 mmol/L (98-107); Glucose 94 mg/dl (70-99); HDL Cholesterol 71 mg/dl; LDL Cholesterol, Calculated 87 mg/dl; Potassium 4.7 mmol/L (3.5-5.1); Sodium 142 mmol/L (135-145); Total Protein 7.6 g/dl (6.3-8.2); Very Low Density Lipoprotein 19 mg/dl (0-30); eGFR > 60.00
== END ==
LOC: REG 10:13
PROVIDERS: ATTENDING PHYSICIAN Family Medicine
DX: I10 Essential (primary) hypertension (principal); R09.89 Other specified symptoms and signs involving the circulatory and respiratory systems; E78.2 Mixed hyperlipidemia; R73.02 Impaired glucose tolerance (oral)
CPT/HCPCS: 36415; 80053; 80061; 84443; 85025

== ENCOUNTER → 2025-02-26 14:23 | Outpatient (REF) | payer OTHER, SELFPAY ==
[2025-02-26 16:02] LABS: Hematocrit 42.3 % (37.0-47.0); Hemoglobin 13.8 g/dL (12.0-16.0); Mean Corp Hgb Conc. 32.6 g/dL (33.0-37.0); Mean Corpuscular Volume 98.4 fL (81.0-99.0); Nucleated Red Blood Cells % 0 %; Platelet Count 224 10^3/uL (130-400); Red Cell Dist. Width 12.5 % (11.5-14.5)
[2025-02-26 16:25] LABS: ALT (SGPT) 17 U/L (0-35); AST (SGOT) 21 U/L (14-36); Albumin 4.3 g/dl (3.5-5.0); Alkaline Phosphatase 64 U/L (38-126); Blood Urea Nitrogen 14 mg/dl (7-17); Calcium 9.5 mg/dl (8.4-10.2); Carbon Dioxide 31 mmol/L (22-30); Chloride 101 mmol/L (98-107); Glucose 90 mg/dl (70-99); Potassium 4.5 mmol/L (3.5-5.1); Sodium 136 mmol/L (135-145); Total Protein 7.3 g/dl (6.3-8.2); eGFR > 60.00
== END ==
LOC: REG 14:23
PROVIDERS: ATTENDING PHYSICIAN Family Medicine
DX: R42 Dizziness and giddiness (principal); I10 Essential (primary) hypertension; R05.1 Acute cough
CPT/HCPCS: 36415; 71046; 80053; 85025

== ENCOUNTER 2025-03-06 13:28 | Emergency (ER) | payer OTHER, SELFPAY ==
[2025-03-06] VITALS (8 sets, daily range): BP systolic 149–174; BP diastolic 73–100; PULSE 59–75; BMI 27.1
[2025-03-06 13:53] LABS: Hematocrit 41.7 % (37.0-47.0); Hemoglobin 13.8 g/dL (12.0-16.0); Mean Corp Hgb Conc. 33.1 g/dL (33.0-37.0); Mean Corpuscular Volume 95.4 fL (81.0-99.0); Nucleated Red Blood Cells % 0 %; Platelet Count 220 10^3/uL (130-400); Red Cell Dist. Width 12.3 % (11.5-14.5)
[2025-03-06 14:05] LABS: ALT (SGPT) 21 U/L (0-35); AST (SGOT) 21 U/L (14-36); Albumin 4.5 g/dl (3.5-5.0); Alkaline Phosphatase 58 U/L (38-126); Blood Urea Nitrogen 16 mg/dl (7-17); Calcium 9.6 mg/dl (8.4-10.2); Carbon Dioxide 33 mmol/L (22-30); Chloride 100 mmol/L (98-107); Glucose 87 mg/dl (70-99); Potassium 4.8 mmol/L (3.5-5.1); Sodium 136 mmol/L (135-145); Total Protein 7.6 g/dl (6.3-8.2); eGFR > 60.00
[2025-03-06 14:18] LABS: Troponin I 0.017 ng/ml
--- NOTE | 2025-03-06 16:42 | ED.GENMED ---
History of Present Illness
<Karla Espinosa PA-C - Last Filed: 03/06/25 20:44>
General
Chief Complaint: Dizziness
Time Seen by Provider: 03/06/25 15:49
History of Present Illness
History of Present Illness:
see MDM
Past History
<Karla Espinosa PA-C - Last Filed: 03/06/25 20:44>
Past History
ED Past Medical History: Arrthythmia, CAD, HTN, Hypercholesterolemia and Psychiatric
ED Past Surgical History: Orthopedic (cerv fusion) and Other
Social History
Tobacco: Non-smoker
Alcohol: None
Drug: None
Personal:
Living: with family
Employment: Retired
Family History
Family History: Other (Noncontributory)
Phy Exam
<Karla Espinosa PA-C - Last Filed: 03/06/25 20:44>
Physical Exam
Physical Exam:
see MDM
Course
<Karla Espinosa PA-C - Last Filed: 03/06/25 20:44>
Orders/Labs/Results
Orders:
Orders
03/06/25 13:29
EKG [Electrocardiogram (*1)] Urgent
Reason for Study: Vertigo / Dizzy
03/06/25 13:30
EKG- Treatment ONCE
03/06/25 13:37
CT Head W/o Iv Contrast Urgent
Comment:
Reason For Exam: dizziness x1 week
03/06/25 13:47
Complete Blood Count/With Diff Urgent
Comprehensive Metabolic Panel Urgent
Troponin I Urgent
03/06/25 16:27
Electrocardiogram (*1) Urgent
Reason for Study: Fatigue / Weakness
EKG- Treatment ONCE
Orthostatic VS- Treatment ONCE
03/06/25 16:28
Meclizine [Antivert] 12.5 mg PO NOW STA
03/06/25 16:52
COVID-19 Antigen Urgent
Source: Nasal Swab
03/06/25 17:19
Troponin I Urgent
Abnormal Lab Results
03/06/25
13:47
MCH 31.6 H pg
(27.0-31.0)
Carbon Dioxide 33 H mmol/L
(22-30)
03/06/25 13:47
03/06/25 13:47
Vital Signs
Initial and Last Documented VS:
Initial Vital Signs
Temp Pulse Resp BP Pulse Ox
36.7 C 62 18 155/82 96
03/06/25 13:31 03/06/25 13:31 03/06/25 13:31 03/06/25 13:31 03/06/25 13:31
Last Documented Vital Signs
Temp Pulse Resp BP Pulse Ox
36.7 C 62 19 165/76 98
03/06/25 13:31 03/06/25 18:45 03/06/25 18:45 03/06/25 18:00 03/06/25 18:15
<Nasra Poon MD - Last Filed: 03/06/25 17:03>
Orders/Labs/Results
Orders:
Orders
03/06/25 13:29
EKG [Electrocardiogram (*1)] Urgent
Reason for Study: Vertigo / Dizzy
03/06/25 13:30
EKG- Treatment ONCE
03/06/25 13:37
CT Head W/o Iv Contrast Urgent
Comment:
Reason For Exam: dizziness x1 week
03/06/25 13:47
Complete Blood Count/With Diff Urgent
Comprehensive Metabolic Panel Urgent
Troponin I Urgent
03/06/25 16:27
Electrocardiogram (*1) Urgent
Reason for Study: Fatigue / Weakness
EKG- Treatment ONCE
Orthostatic VS- Treatment ONCE
03/06/25 16:28
Meclizine [Antivert] 12.5 mg PO NOW STA
03/06/25 16:52
COVID-19 Antigen Urgent
Source: Nasal Swab
03/06/25 17:19
Troponin I Urgent
Abnormal Lab Results
03/06/25
13:47
MCH 31.6 H pg
(27.0-31.0)
Carbon Dioxide 33 H mmol/L
(22-30)
03/06/25 13:47
03/06/25 13:47
Vital Signs
Initial and Last Documented VS:
Initial Vital Signs
Temp Pulse Resp BP Pulse Ox
36.7 C 62 18 155/82 96
03/06/25 13:31 03/06/25 13:31 03/06/25 13:31 03/06/25 13:31 03/06/25 13:31
Last Documented Vital Signs
Temp Pulse Resp BP Pulse Ox
36.7 C 62 19 165/76 98
03/06/25 13:31 03/06/25 18:45 03/06/25 18:45 03/06/25 18:00 03/06/25 18:15
<Karla Espinosa PA-C - Last Filed: 03/06/25 20:44>
MDM/Problems Addressed
Differential Diagnosis Includes:
see MDM
MDM/Problems Addressed:
Note:
CHIEF COMPLAINT(S)
Dizziness for one week.
HISTORY OF PRESENT ILLNESS
The patient is a 84 Y/O female with h/o HTN, hld, chronic pain, anxiety, depression whose primary complaint is dizziness persisting for one week. pt says it is mostly lightheaded and less like the room is spinning. it does seem to be worse if she
turns her head but not significantly. Initially evaluated by her primary care physician, Dr. Mendoza, dehydration was suspected. The patient was advised to drink water, which she has continued, though the dizziness persisted. she has been unable to
use a walker and has been confined to a wheelchair at home. HOWEVER HER SAID SHE MOSTLY HAS NOT BEEN AMBLUATORY EVEN BEFORE THE DIZZINESS STARTED.
She notes no recent falls but does have a history of urinary tract infections and falls over the past few years, but her urine was checked last week in PCP office and was reportedly neg.
The patient denies syncope, fever, chills, or significant respiratory symptoms but mentions occasionally feeling cold. No recent incidence of COVID-19 exposure was acknowledged, although a COVID-19 test was planned. pt is saying her chest wall is
itchy
no cp, sob, abd pain, vomiting, cold symptoms, headache
she has had some increased confusion ongoing as well but this is not new
eating ok.
PAST MEDICAL AND SURGICAL HISTORY
The patient has been recently treated for blood pressure issues; a change in medication by Dr. Boothe was noted. She has a recent history of completing physical therapy for her hip.
CHRONIC MEDICAL CONDITIONS SIGNIFICANTLY AFFECTING CARE
The patient has a history of hypertension and has been undergoing blood pressure management.
REVIEW OF SYSTEMS
- Head: Episodes of dizziness characterized by spinning sensation and lightheadedness. No history of headaches or previous vertigo.
- Gastrointestinal: Diarrhea, no nausea or vomiting.
- Neurological: No history of stroke; denies muscular weakness.
- Respiratory: No recent cough or cold symptoms.
PHYSICAL EXAM
- GENERAL: Alert , in no apparent distress, seems anxious
HEAD: NCAT
EYE: pupils equal and reactive, no nystagmus, bno photophobia
NECK: Supple,full rom, nontender
ENT: o/p clr, mmm.
CARDIAC: Regular rate and rhythm . no edema
LUNGS: Clear breath sounds bilaterally, no acute respiratory distress, no wheezes/rales/rhonchi
ABDOMEN: Soft, without focal tenderness, no r/g, no cvat
NEUROLOGICAL: Alert and orientedx 3 seems to have some memory issues, remembering why she is there, looking to her to answer some of these questions about situation,, cn intact, no facial asymmetry, 5/5 strength in UE/LE, sensation intact,
romberg neg, ambulates without assistance, neg pronator drift
SKIN: Warm and dry, skin intact.
MUSCULOSKELETAL: No edema, well perfused.
PSYCH: Mild anxiety, seems also mildly depressed
Nursing notes reviewed and vital signs reviewed.
PLAN
- Ordered a COVID-19 test to rule out infection.
- Plan to check orthostatic blood pressure to assess for potential postural hypotension.
- Consider administering a dose of medication used in managing vertigo to evaluate symptomatic relief.
DIFFERENTIAL DIAGNOSIS
The Differential Diagnosis includes, in no particular order and is not limited to:
1. Benign Paroxysmal Positional Vertigo (BPPV)
2. Labyrinthitis
3. Vestibular Neuritis
4. Chronic Subjective Dizziness
5. Anemia
6. Medication Side Effects
7. Dehydration
8. Orthostatic Hypotension
9. Anxiety-related Dizziness
10. Cardiogenic Dizziness (e.g., cardiac arrhythmias)
pt is 84 y/o F
some developing memory problems it seems
amb dysfuction baseline
has wheelchair that she stnads to transfer to
but she could usually use walker though more recently she hasn't
some generalized lightheaded or dizziness for a week
saw pcp
thought dehydration
labs and ua neg
hydrating but not feeling well
pt seems to forget why she is here really
? anxiety or dementia or depression?
initial work up pretty unremarkable
no nystagmust
turning head normally
no chest pain
1st trop 0.017
2nd trop 0.012
ekg unchagned nonischemic
seen by PCP
plan was to feed pt, give meclizine and see
CARE-UPDATE
03/06/25 - 18:59
The patient reported feeling good after eating a turkey sandwich. The recent CT scan and second cardiac blood test results were negative, showing no concerning findings. The patient took medication for dizziness, meclizine adn thinks she feels
beter. A prescription for this medication will be provided for two more days to assess further improvement. During the discussion about mobility, the plan is to assist the patient in standing to evaluate their balance and well-being. If the patient
stands and feels better than before, discharge to home is considered; otherwise, observation will continue. Eating appears to have contributed to the patients improvement in feelings of well-being.
<Karla Espinosa PA-C - Last Filed: 03/06/25 20:44>
*Pulse Oximetry
SaO2: 96
Patient hypoxic: no (98)
*Critical Care Note
Total Time (30-74mins, 75-104mins- exclusive of procedures): Not Applicable
ED Attending Note
<Karla Espinosa PA-C - Last Filed: 03/06/25 20:44>
-
Portions of this chart may have been created with voice recognition software.� Occasional wrong word or��sound alike� substitutions may have occurred due to the inherent limitations of voice recognition software.
<Nasra Poon MD - Last Filed: 03/06/25 17:03>
ED Attending Note
I performed the substantive portion of visit, reviewed & personally made and approve the management plan that is documented in note by myself or NEHA.: Yes
I performed a history and physical exam of patient and discussed management with resident, I reviewed resident's note and agree with documented findings and plan of care.: Yes
ED Attending Note:
Patient appears well and comfortable. Heart sounds regular lungs are clear. Patient has 5 out of 5 strength in all extremities without drift. Extraocular muscles intact. Normal finger-nose.
Patient has a nonfocal neurological exam. However, reports that patient's balance and ability to walk has been acutely different over the last week. We will try meclizine. If there is no improvement with meclizine, feels more
comfortable with patient being admitted for any further workup. Although patient's CT is negative for acute change and her neurological exam is nonfocal, I still cannot fully rule out stroke. I did explain this to the patient and .
Discharge Plan
Departure
Patient Disposition: Home (Routine Discharge)
Date of Disposition: 03/06/25
Time of Disposition: 19:30
Patient with high blood pressure during this ER visit?: No
Condition: Fair
Discharge Problem:
Dizziness
Instructions: Dizziness
Prescriptions:
New
meclizine 12.5 mg tablet
12.5 mg PO BID PRN (Reason: dizziness) 3 Days Qty: 6 0RF
No Action
simvastatin 20 MG tablet
20 mg PO QPM
cyanocobalamin (vitamin B-12) [Vitamin B-12] 1,000 mcg Tablet
1,000 mcg PO DAILY
cholecalciferol (vitamin D3) [Vitamin D3] 50 mcg (2,000 unit) Tablet
50 mcg PO DAILY
Eliquis 5 mg Tablet
5 mg PO BID 30 Days Qty: 60 0RF
metoprolol succinate 100 mg tablet extended release 24 hr
100 mg PO NOON
therapeutic multivitamin Tablet
1 tab PO DAILY
tamsulosin 0.4 mg capsule
0.4 mg PO HS
lisinopril 10 mg Tablet
10 mg PO DAILY 30 Days Qty: 30 0RF
sennosides [Senna Laxative] 8.6 mg tablet
8.6 mg PO BID Qty: 0 0RF
Rx Instructions:
Hold if diarrhea
melatonin 5 mg Tablet
5 mg PO HSPRN PRN (Reason: Sleep) Qty: 0 0RF
Caltrate 600 plus D 600 mg-20 mcg (800 unit) Tablet,Chewable
1 tab PO DAILY
lidocaine 4 % Adhesive Patch,Medicated
1 patch TOPICAL DAILYPRN PRN (Reason: lower back)
pantoprazole [Protonix] 20 mg Tablet,Delayed Release (Dr/Ec)
20 mg PO DAILY
dextromethorphan-guaifenesin [Robitussin Honey Max DM] 5-100 mg/5 mL liquid
10 ml PO Q6H PRN (Reason: Cough) Qty: 100 0RF
ascorbic acid (vitamin C) [Vitamin C] 1,000 mg tablet
500 mg PO DAILY Qty: 30 0RF
tramadol 50 MG tablet
25 mg PO Q6HPRN PRN (Reason: moderate severe pain) Qty: 10 0RF
gabapentin 300 mg Capsule
300 mg PO TID Qty: 90 0RF
cefdinir 300 mg capsule
300 mg PO Q12H 7 Days Qty: 14 0RF
Referrals:
Concepcion Hamlin MD [Family Provider, Family Practice] - Follow up in 2-3 days
Activity Restrictions/Additional Instructions:
Were not entirely sure why you are feeling dizzy however it could be some vertigo which is an inner ear problem. We gave you a dose of meclizine and you had improvement so you can try this 12.5 mg twice a day for the next day or 2. After that
you should not need it. Please see your doctor if you continue to feel this way. Return for sudden worsening of symptoms, severe headache, passing out, focal weakness, fever or chills etc.
Interventions
Interventions:
*Risk Screen - Suicide Last Done: 03/06/25 13:31
*General Assessment Last Done: 03/06/25 13:31
*Neglect/Abuse Screening Last Done: 03/06/25 13:31
*ED- Fall Risk Assessment Last Done: 03/06/25 20:11
*ED COVID-19 Vaccine History Last Done: 03/06/25 13:31
*ED Influenza Vaccine History Last Done: 03/06/25 13:31
*Nursing Disposition Last Done: 03/06/25 20:11
ED- Neurological Assessment Last Done: 03/06/25 17:00
ED- Cardiac Assessment Last Done: 03/06/25 17:13
ED Swallowing Screen Last Done: 03/06/25 17:00
Discharge Date and Time
Discharge Date/Time: 03/06/25 20:11
Print Language: LATVIAN
[2025-03-06] MEDS: ANTIVERT 12.5 MG PO (17:09)
[2025-03-06 17:20] LABS: COVID-19 Antigen Negative (Negative)
[2025-03-06 18:03] LABS: Troponin I < 0.012 ng/ml
== END 2025-03-06 20:11 | disposition home or self-care (01) ==
LOC: EMR 13:28
PROVIDERS: Emergency Medicine; Physician Assistant; EMERGENCY PHYSICIAN Emergency Medicine; FAMILY PHYSICIAN Family Medicine
DX: R42 Dizziness and giddiness (principal); I25.10 Atherosclerotic heart disease of native coronary artery without angina pectoris; E78.00 Pure hypercholesterolemia, unspecified; I10 Essential (primary) hypertension; Z99.3 Dependence on wheelchair; G89.29 Other chronic pain
CPT/HCPCS: 99284; 70450; 80053; 84484; 85025; 87811; 93005